=== PATIENT | male | born 1950 | race Hispanic/Latino ===

== ENCOUNTER 2016-04-19 11:07 | Outpatient (CLI) | payer MEDICARE ==
[2016-04-19] MEDS ORDERED: XYLOCAINE TOPICAL 2% ONE (11:51)
== END 2016-04-19 11:08 | disposition home or self-care (01) ==
LOC: WOUND 11:07
PROVIDERS: ATTEND Orthopaedic Surgery
DX: L89.214 Pressure ulcer of right hip, stage 4 (principal)

== ENCOUNTER 2016-05-03 11:16 | Outpatient (CLI) | payer MEDICARE ==
[2016-05-03] MEDS ORDERED: XYLOCAINE TOPICAL 2% ONE (11:22)
[2016-05-03] MEDS ORDERED: XYLOCAINE TOPICAL 2% TP ONE (13:26)
== END 2016-05-03 11:17 | disposition home or self-care (01) ==
LOC: WOUND 11:16
PROVIDERS: ATTEND Orthopaedic Surgery
DX: L89.214 Pressure ulcer of right hip, stage 4 (principal)

== ENCOUNTER 2016-06-07 10:29 | Outpatient (CLI) | payer MEDICARE ==
[2016-06-07] MEDS ORDERED: XYLOCAINE TOPICAL 2% ONE (11:07)
[2016-06-08] MEDS ORDERED: XYLOCAINE TOPICAL 2% TP ONE (08:09)
== END 2016-06-07 10:30 | disposition home or self-care (01) ==
LOC: WOUND 10:29
PROVIDERS: ATTEND Internal Medicine
DX: L89.214 Pressure ulcer of right hip, stage 4 (principal); M62.432 Contracture of muscle, left forearm; M62.3 Immobility syndrome (paraplegic); F84.8 Other pervasive developmental disorders

== ENCOUNTER 2016-06-21 10:39 | Outpatient (CLI) | payer MEDICARE ==
[2016-06-21] MEDS ORDERED: XYLOCAINE TOPICAL 4% TP ONE ×2 (11:13→11:37)
== END 2016-06-21 10:40 | disposition home or self-care (01) ==
LOC: WOUND 10:39
PROVIDERS: ATTEND Internal Medicine
DX: L89.214 Pressure ulcer of right hip, stage 4 (principal); M62.432 Contracture of muscle, left forearm; M62.3 Immobility syndrome (paraplegic); F84.8 Other pervasive developmental disorders

== ENCOUNTER 2016-07-19 08:12 | Outpatient (CLI) | payer MEDICARE ==
[2016-07-19] MEDS ORDERED: XYLOCAINE TOPICAL 2% ONE (08:22)
[2016-07-19] MEDS ORDERED: XYLOCAINE TOPICAL 2% TP ONE (15:01)
== END 2016-07-19 08:13 | disposition home or self-care (01) ==
LOC: WOUND 08:12
PROVIDERS: ATTEND Internal Medicine
DX: L89.224 Pressure ulcer of left hip, stage 4 (principal); M62.432 Contracture of muscle, left forearm; M62.3 Immobility syndrome (paraplegic); F84.8 Other pervasive developmental disorders

== ENCOUNTER 2016-08-02 10:27 | Outpatient (CLI) | payer MEDICARE, MEDICAID ==
[2016-08-02] MEDS ORDERED: XYLOCAINE TOPICAL 2% ONE (10:33)
== END 2016-08-02 10:28 | disposition home or self-care (01) ==
LOC: WOUND 10:27
PROVIDERS: ATTEND Surgery
DX: L89.214 Pressure ulcer of right hip, stage 4 (principal); R64 Cachexia; M62.3 Immobility syndrome (paraplegic); M62.432 Contracture of muscle, left forearm; F84.8 Other pervasive developmental disorders

== ENCOUNTER 2016-08-16 09:57 | Outpatient (CLI) | payer MEDICARE ==
[2016-08-16] MEDS ORDERED: XYLOCAINE TOPICAL 2% ONE (10:04)
[2016-08-16] MEDS ORDERED: XYLOCAINE TOPICAL 2% TP ONE (10:22)
== END 2016-08-16 09:58 | disposition home or self-care (01) ==
LOC: WOUND 09:57
PROVIDERS: ATTEND Internal Medicine
DX: L89.214 Pressure ulcer of right hip, stage 4 (principal); M62.432 Contracture of muscle, left forearm; M62.3 Immobility syndrome (paraplegic); F84.8 Other pervasive developmental disorders

== ENCOUNTER 2016-08-30 10:07 | Outpatient (CLI) | payer MEDICARE ==
[2016-08-30] MEDS ORDERED: XYLOCAINE TOPICAL 2% ONE (10:18)
[2016-08-30] MEDS ORDERED: XYLOCAINE TOPICAL 2% TP ONE (11:00)
== END 2016-08-30 10:08 | disposition home or self-care (01) ==
LOC: WOUND 10:07
PROVIDERS: ATTEND Surgery
DX: L89.214 Pressure ulcer of right hip, stage 4 (principal); M62.3 Immobility syndrome (paraplegic); M62.432 Contracture of muscle, left forearm; F84.8 Other pervasive developmental disorders
CPT/HCPCS: 99214; G0463

== ENCOUNTER 2016-09-13 10:54 | Outpatient (CLI) | payer MEDICARE | END 2016-09-13 10:55 | disposition home or self-care (01) | LOC: WOUND 10:54 | PROVIDERS: ATTEND Surgery | DX: L89.214 Pressure ulcer of right hip, stage 4 (principal); M62.432 Contracture of muscle, left forearm; M62.3 Immobility syndrome (paraplegic); R64 Cachexia; F84.8 Other pervasive developmental disorders ==

== ENCOUNTER 2016-09-27 10:34 | Outpatient (CLI) | payer MEDICARE ==
[2016-09-27] MEDS ORDERED: XYLOCAINE TOPICAL 2% ONE (11:05)
[2016-09-27] MEDS ORDERED: XYLOCAINE TOPICAL 2% TP ONE (11:16)
== END 2016-09-27 10:35 | disposition home or self-care (01) ==
LOC: WOUND 10:34
PROVIDERS: ATTEND Surgery
DX: L89.214 Pressure ulcer of right hip, stage 4 (principal); M62.3 Immobility syndrome (paraplegic); M62.432 Contracture of muscle, left forearm; F84.8 Other pervasive developmental disorders

== ENCOUNTER 2016-10-11 10:56 | Outpatient (CLI) | payer MEDICARE ==
[2016-10-11] MEDS ORDERED: XYLOCAINE TOPICAL 4% TP ONE ×2 (12:29→12:36)
== END 2016-10-11 10:57 | disposition home or self-care (01) ==
LOC: WOUND 10:56
PROVIDERS: ATTEND Surgery
DX: L89.214 Pressure ulcer of right hip, stage 4 (principal); M62.432 Contracture of muscle, left forearm; M62.3 Immobility syndrome (paraplegic); F84.8 Other pervasive developmental disorders

== ENCOUNTER 2016-10-25 10:18 | Outpatient (CLI) | payer MEDICARE ==
[2016-10-25] MEDS ORDERED: XYLOCAINE TOPICAL 4% TP ONE ×2 (10:41→10:46)
== END 2016-10-25 10:19 | disposition home or self-care (01) ==
LOC: WOUND 10:18
PROVIDERS: ATTEND Surgery
DX: L89.214 Pressure ulcer of right hip, stage 4 (principal); M62.3 Immobility syndrome (paraplegic); F84.8 Other pervasive developmental disorders
CPT/HCPCS: 99214; G0463

== ENCOUNTER 2016-11-08 11:22 | Outpatient (CLI) | payer MEDICARE ==
[2016-11-08] MEDS ORDERED: XYLOCAINE TOPICAL 4% TP ONE (11:39)
[2016-11-08] MEDS ORDERED: SILVER NITRATE TP ONE (11:56)
== END 2016-11-08 11:23 | disposition home or self-care (01) ==
LOC: WOUND 11:22
PROVIDERS: ATTEND Surgery
DX: L89.214 Pressure ulcer of right hip, stage 4 (principal); M62.3 Immobility syndrome (paraplegic); F84.8 Other pervasive developmental disorders; M62.432 Contracture of muscle, left forearm

== ENCOUNTER 2016-11-29 11:12 | Outpatient (CLI) | payer MEDICARE ==
[2016-11-29] MEDS ORDERED: XYLOCAINE TOPICAL 4% TP ONE ×2 (11:18→11:22)
== END 2016-11-29 11:13 | disposition home or self-care (01) ==
LOC: WOUND 11:12
PROVIDERS: ATTEND Surgery
DX: L89.214 Pressure ulcer of right hip, stage 4 (principal); F79 Unspecified intellectual disabilities

== ENCOUNTER 2016-12-13 10:49 | Outpatient (CLI) | payer MEDICARE ==
[2016-12-13] MEDS ORDERED: XYLOCAINE TOPICAL 4% TP ONE ×2 (10:57→10:58)
== END 2016-12-13 10:50 | disposition home or self-care (01) ==
LOC: WOUND 10:49
PROVIDERS: ATTEND Surgery
DX: L89.214 Pressure ulcer of right hip, stage 4 (principal); M62.3 Immobility syndrome (paraplegic); M62.432 Contracture of muscle, left forearm; F84.8 Other pervasive developmental disorders

== ENCOUNTER 2017-01-03 11:28 | Outpatient (CLI) | payer MEDICARE ==
[2017-01-03] MEDS ORDERED: XYLOCAINE TOPICAL 4% TP ONE ×2 (11:49→16:15)
== END 2017-01-03 11:29 | disposition home or self-care (01) ==
LOC: WOUND 11:28
PROVIDERS: ATTEND Surgery
DX: L89.214 Pressure ulcer of right hip, stage 4 (principal)

== ENCOUNTER 2017-01-17 11:07 | Outpatient (CLI) | payer MEDICARE ==
[2017-01-17] MEDS ORDERED: XYLOCAINE TOPICAL 4% TP ONE ×2 (11:31→11:39)
== END 2017-01-17 11:08 | disposition home or self-care (01) ==
LOC: WOUND 11:07
PROVIDERS: ATTEND Surgery
DX: L89.214 Pressure ulcer of right hip, stage 4 (principal)

== ENCOUNTER 2017-01-31 11:11 | Outpatient (CLI) | payer MEDICARE ==
[2017-01-31] MEDS ORDERED: XYLOCAINE TOPICAL 2% ONE (11:43)
[2017-01-31] MEDS ORDERED: XYLOCAINE TOPICAL 2% TP ONE (11:47)
== END 2017-01-31 11:12 | disposition home or self-care (01) ==
LOC: WOUND 11:11
PROVIDERS: ATTEND Surgery
DX: L89.214 Pressure ulcer of right hip, stage 4 (principal); M62.3 Immobility syndrome (paraplegic); M62.432 Contracture of muscle, left forearm; F84.8 Other pervasive developmental disorders

== ENCOUNTER 2017-02-14 11:21 | Outpatient (CLI) | payer MEDICARE ==
[2017-02-14] MEDS ORDERED: XYLOCAINE TOPICAL 4% TP ONE ×2 (12:00→12:11)
== END 2017-02-14 11:22 | disposition home or self-care (01) ==
LOC: WOUND 11:21
PROVIDERS: ATTEND Surgery
DX: L89.214 Pressure ulcer of right hip, stage 4 (principal); F84.8 Other pervasive developmental disorders; M62.432 Contracture of muscle, left forearm; M62.3 Immobility syndrome (paraplegic); R64 Cachexia

== ENCOUNTER 2017-02-28 08:45 | Outpatient (CLI) | payer MEDICARE ==
[2017-02-28] MEDS ORDERED: XYLOCAINE TOPICAL 4% TP ONE (09:15)
== END 2017-02-28 08:46 | disposition home or self-care (01) ==
LOC: WOUND 08:45
PROVIDERS: ATTEND Surgery
DX: L89.214 Pressure ulcer of right hip, stage 4 (principal); M62.3 Immobility syndrome (paraplegic); M62.432 Contracture of muscle, left forearm; F84.8 Other pervasive developmental disorders

== ENCOUNTER 2017-02-28 12:16 | Inpatient (IN) | payer MEDICARE ==
[2017-02-28] MEDS ORDERED: NACL 0.9% 500 ML 500 ML IV ONE (13:34)
[2017-02-28] MEDS ORDERED: NACL 0.9% 1000 ML 1,000 ML IV ONE (13:45)
--- NOTE | 2017-02-28 14:07 | XRay Report ---
AP CHEST: HISTORY: Sepsis Slightly limited exam with the patient's left upper extremity overlying the left lung and superior mediastinum. AP view of the chest demonstrates a normal mediastinal and cardiac contour with clear lungs and normal bony and soft tissue structures. IMPRESSION: Unremarkable AP chest.
[2017-02-28 14:39] LABS: Basophils % (Auto) 0.4 % (0.0-1.8); Eosinophils % (Auto) 2.2 % (0.0-4.3); Hematocrit 27.6 % (35.5-45.6); Hemoglobin 9.4 gm/dl (11.8-15.2); Mean Corpuscular HGB Conc 34 % (32-34); Mean Corpuscular Hemoglobin 31 pg (28-32); Mean Corpuscular Volume 90 fl (84-94); Platelet Count 273 K/mm3 (140-440); Red Blood Count 3.06 M/mm3 (3.65-5.03); Red Cell Distribution Width 14.2 % (13.2-15.2); White Blood Count 7.4 K/mm3 (4.5-11.0)
[2017-02-28 14:44] LABS: INR 1.2 (0.87-1.13)
[2017-02-28 14:56] LABS: Alanine Aminotransferase 12 units/L (7-56); Albumin 2.9 g/dL (3.9-5); Albumin/Globulin Ratio 0.9 %; Alkaline Phosphatase 53 units/L (35-129); Anion Gap 15 mmol/L; BUN/Creatinine Ratio 67; Blood Urea Nitrogen 20 mg/dL (9-20); Carbon Dioxide 26 mmol/L (22-30); Chloride 103.1 mmol/L (98-107); Glucose 111 mg/dL (75-100); Potassium 3.8 mmol/L (3.6-5.0); Sodium 140 mmol/L (137-145); Total Protein 6.1 g/dL (6.3-8.2)
[2017-02-28] MEDS ORDERED: VANCOMYCIN/NS 1 GM/250 ML 1 GM/250 ML BAG IV ONE (15:30)
[2017-02-28 16:12] LABS: Bilirubin,Urine NEG (Negative); Blood,Urine NEG (Negative); Ketones,Urine TR mg/dL (Negative); Leukocyte Esterase,Urine NEG (Negative); Nitrite,Urine NEG (Negative); Protein,Urine <15 mg/dL mg/dL (Negative)
--- NOTE | 2017-02-28 20:30 | Emergency Department Report ---
ED Extremity Problem HPI - General Chief complaint: Extremity Problem,Nontraumatic Stated complaint: RIGHT LEG SWOLLEN/LT FOOT DISCOLORED Time Seen by Provider: 02/28/17 14:41 Source: family (buffer copper from [facility]) Mode of arrival: Wheelchair Limitations: Language Barrier, Altered Mental Status, Physical Limitation - History of Present Illness Initial comments: 67-year-old male with a past medical history of previous CVA with left-sided contraction, DVT, PE, seizures, cerebral palsy and MR presents to the Hospital complains of right leg warmth and swelling. Patient was seen in our wound clinic for chronic right hip pressure ulcer. Dr. Cano wound care physician was concerned about patient's leg and sent for evaluation. The patient resides in a [facility] Mastic Worker at the bedside. She states that he injured his left foot/toes recently and his superficial has since healed but persistent discoloration to some of his toes. No reports of fever. Patient also presents with low blood pressure and an buffer copper thinks typically on the low side but also thinks he may be dehydrated due to his dark urine discoloration. Severity scale (0 -10): 0 - Related Data Home Medications Medication Instructions Recorded Confirmed Last Taken Divalproex ER [Depakote ER] 500 mg PO HS 04/11/13 09/27/15 09/26/15 500mg Docusate Sodium 100 mg PO BID 02/12/15 09/27/15 09/26/15 100mg Ensure 1 dose PO BID 02/12/15 09/27/15 09/26/15 1 Multivitamins 1 tab PO DAILY 02/12/15 09/27/15 09/26/15 1 Ranitidine HCl 150 mg PO DAILY 02/12/15 09/27/15 09/26/15 150mg RisperiDONE 1 mg PO BID 02/12/15 09/27/15 09/26/15 1 mg Xarelto 20 mg PO DAILY 02/12/15 09/27/15 09/26/15 20mg Ascorbic Acid [Vitamin C] 500 mg PO DAILY 09/27/15 09/27/15 09/26/15 500mg Allergies Allergy/AdvReac Type Severity Reaction Status Date / Time No Known Allergies Allergy Verified 02/28/17 12:30 ED Review of Systems ROS: Stated complaint: RIGHT LEG SWOLLEN/LT FOOT DISCOLORED Other details as noted in HPI Comment: Unobtainable due to pts medical conditions ED Past Medical Hx - Past Medical History Previous Medical History?: Yes Hx CVA: Yes (possibly history of strokes per caregiver) Hx Diabetes: No Hx Deep Vein Thrombosis: Yes Hx Pulmonary Embolism: Yes Hx Seizures: Yes Additional medical history: Cerebral palsy. mentally handicapped - Social History Smoking Status: Never Smoker Substance Use Type: None - Medications Home Medications: Home Medications Medication Instructions Recorded Confirmed Last Taken Type Divalproex ER [Depakote ER] 500 mg PO HS 04/11/13 09/27/15 09/26/15 History 500mg Docusate Sodium 100 mg PO BID 02/12/15 09/27/15 09/26/15 History 100mg Ensure 1 dose PO BID 02/12/15 09/27/15 09/26/15 History 1 Multivitamins 1 tab PO DAILY 02/12/15 09/27/15 09/26/15 History 1 Ranitidine HCl 150 mg PO DAILY 02/12/15 09/27/15 09/26/15 History 150mg RisperiDONE 1 mg PO BID 02/12/15 09/27/15 09/26/15 History 1 mg Xarelto 20 mg PO DAILY 02/12/15 09/27/15 09/26/15 History 20mg Ascorbic Acid [Vitamin C] 500 mg PO DAILY 09/27/15 09/27/15 09/26/15 History 500mg ED Physical Exam - General Limitations: Language Barrier, Altered Mental Status, Physical Limitation - Other Other exam information: General: No limitations, patient is alert in no acute distress Head exam: Atraumatic, normocephalic Eyes exam: Normal appearance ENT: Moist mucous membrane, normal oropharynx Neck exam: Normal inspection Respiratory exam: Clear to auscultation bilateral, no wheezes, rales, crackles Cardiovascular: Normal rate and rhythm, normal heart sounds Abdomen: Soft, nondistended, and nontender, with normal bowel sounds, no rebound, or guarding Extremity: Diffuse right lower leg warmth, erythema, and swelling. Bluish discoloration to left foot at the second through fourth toes. Full range of motion. 2+ EB pupils are equal bilaterally. Back: Normal Inspection, full range of motion, no tenderness Neurologic: Alert, cranial nerves intact, contracted left arm with limited movement of her left upper and lower extremity Psychiatric: normal affect, normal mood Skin: Right hip pressure ulcer without signs of infection ED Course Vital Signs 02/28/17 02/28/17 02/28/17 12:32 13:00 13:16 Temperature 98.6 F Pulse Rate 82 Respiratory Rate Blood Pressure 84/63 Blood Pressure [Right] O2 Sat by Pulse 97 97 98 Oximetry 02/28/17 02/28/17 02/28/17 13:30 13:33 13:34 Temperature 99.5 F Pulse Rate 82 81 Respiratory 21 19 19 Rate Blood Pressure 99/49 Blood Pressure 99/49 [Right] O2 Sat by Pulse 97 97 97 Oximetry 02/28/17 02/28/17 02/28/17 13:46 14:00 14:16 Temperature Pulse Rate 78 79 88 Respiratory 19 19 16 Rate Blood Pressure 99/49 99/49 236/167 Blood Pressure [Right] O2 Sat by Pulse 97 97 98 Oximetry 02/28/17 02/28/17 02/28/17 14:30 14:45 14:46 Temperature Pulse Rate 76 87 90 Respiratory 17 17 20 Rate Blood Pressure 236/167 90/39 Blood Pressure 90/39 [Right] O2 Sat by Pulse 99 99 Oximetry 02/28/17 02/28/17 02/28/17 15:00 15:16 15:30 Temperature Pulse Rate 91 H 89 93 H Respiratory 21 18 13 Rate Blood Pressure 90/39 90/39 90/39 Blood Pressure [Right] O2 Sat by Pulse 99 97 98 Oximetry 02/28/17 02/28/17 02/28/17 15:46 16:00 16:16 Temperature Pulse Rate 81 83 92 H Respiratory 14 20 15 Rate Blood Pressure 90/39 90/39 99/65 Blood Pressure [Right] O2 Sat by Pulse 98 99 95 Oximetry 02/28/17 02/28/17 02/28/17 16:30 16:46 17:00 Temperature Pulse Rate 75 84 79 Respiratory 20 22 17 Rate Blood Pressure 99/65 99/65 106/56 Blood Pressure [Right] O2 Sat by Pulse 100 98 99 Oximetry 02/28/17 02/28/17 02/28/17 17:16 17:30 17:46 Temperature Pulse Rate 75 85 85 Respiratory 15 15 19 Rate Blood Pressure 106/56 106/56 115/64 Blood Pressure [Right] O2 Sat by Pulse 99 98 98 Oximetry 02/28/17 02/28/17 18:00 18:16 Temperature Pulse Rate 82 81 Respiratory 17 19 Rate Blood Pressure 109/63 109/63 Blood Pressure [Right] O2 Sat by Pulse 96 99 Oximetry - Reevaluation(s) Reevaluation #1: 02/28/17 BP improved as IV bolus. Patient received 1 dose of vancomycin IV in the ED - EJ/Peripheral Line Neck R Time Out Performed: Yes Indications: nurses unable to establis Skin Cleansed in Sterile Fashion: Yes Size: 20 Dressing Placed: Tegaderm Patient Tolerated Procedure: well, no complications ED Medical Decision Making - Lab Data Result diagrams: 02/28/17 13:34 02/28/17 13:34 - Radiology Data Radiology results: report reviewed Right leg Doppler exam negative for DVT - Medical Decision Making Plans admit patient to the hospital overnight to continue IV antibiotics and to monitor for BP stabilization. - Differential Diagnosis DVT, cellulitis, fracture, sepsis Critical Care Time: No Critical care attestation.: If time is entered above; I have spent that time in minutes in the direct care of this critically ill patient, excluding procedure time. ED Disposition Clinical Impression: Cellulitis of right leg, Mental retardation, Anemia Disposition: DC09 OP ADMIT IP TO THIS HOSP Is pt being admited?: Yes Condition: Stable Time of Disposition: 20:38 (Dr Gaona/hosp)
--- NOTE | 2017-02-28 21:33 | XRay Report ---
FINAL REPORT PROCEDURE: XR FOOT 3+V LT TECHNIQUE: LEFT foot radiographs, AP, lateral, and oblique views. CPT 73228 HISTORY: toes discoloration after injury COMPARISON: No prior studies are available for comparison. FINDINGS: Fracture (s) and/or Dislocation(s): Acute fractures are noted involving the proximal diaphyses of 3rd, 4th and 5th proximal phalanges and distal metaphyses of 4th and 5th metatarsals. Alignment: There is mild degree displacement of the phalangeal fragments. Joint alignment is within normal limits. Joint space(s): Narrowing of intertarsal and 1st metatarsophalangeal joint spaces is noted. Osteophyte formation is noted involving 1st metatarsophalangeal joint.. Soft tissues: Normal . Bone mineralization: Normal . Foreign bodies: None . Calcaneal spurring: None . IMPRESSION: Acute fractures involving 3rd to 5th proximal phalanges and 4th and 5th metatarsals. Osteoarthritis..
[2017-02-28] MEDS ORDERED: ZOFRAN IV PRN (22:45)
[2017-02-28] MEDS ORDERED: TYLENOL PO PRN (22:45)
--- NOTE | 2017-02-28 22:48 | History and Physical Report ---
History of Present Illness Date of examination: 02/28/17 History of present illness: 67-year-old man with history of DVT, PE, seizure, CVA From the wound care center for evaluation of right leg swelling and redness. He is unable to give a history, review of system unobtainable PAST MEDICAL HISTORY:DVT, PE, seizure, CVA PAST SURGICAL HISTORY: Unknown FAMILY HISTORY: Unknown SOCIAL HISTORY:Unknown Medications and Allergies Allergies Allergy/AdvReac Type Severity Reaction Status Date / Time No Known Allergies Allergy Verified 02/28/17 12:30 Home Medications Medication Instructions Recorded Confirmed Last Taken Type Divalproex ER [Depakote ER] 500 mg PO HS 04/11/13 03/01/17 02/27/17 20:00 History Docusate Sodium 100 mg PO BID 02/12/15 03/01/17 02/28/17 08:00 History Ensure 1 dose PO BID 02/12/15 03/01/17 02/28/17 10:00 History Multivitamins 1 tab PO DAILY 02/12/15 03/01/17 02/28/17 08:00 History Ranitidine HCl 150 mg PO DAILY 02/12/15 03/01/17 02/27/17 19:00 History RisperiDONE 1 mg PO DAILY 02/12/15 03/01/17 02/27/17 20:00 History Xarelto 20 mg PO DAILY 02/12/15 03/01/17 09/26/15 History 20mg Ascorbic Acid [Vitamin C] 500 mg PO DAILY 09/27/15 03/01/17 02/28/17 08:00 History Collagenase [Santyl] 1 applicatio TP QDAY 03/01/17 03/01/17 Unknown History Multivitamin/Iron/Folic Acid 1 each PO DAILY 03/01/17 03/01/17 02/28/17 08:00 History [Centrum Adults Tablet] Santyl 250 gm TP DAILY 03/01/17 03/01/17 Unknown History Exam - Physical Exam Narrative exam: Gen. appearance: Patient lying in bed in no acute distress HEENT: Normocephalic/atraumatic, pupils equal round reactive to light, extra alkaline movement intact, no scleral icterus, no JVD or thyromegaly or nodule, neck is supple, mucous membrane moist, no erythema or exudate Heart: S1-S2, regular rate and rhythm Lungs: Clear to auscultation bilateral breathing comfortable Abdomen: Positive bowel sounds, nontender, nondistended, no organomegaly Extremities:right leg swelling and redness, +warmth extremities contracted, No cyanosis, clubbing Neuro:: Oriented 3 , cranial nerves II-12 intact, speech, motor intact Skin: Hip ulcer, No rash, nodules, warm dry - Constitutional Vitals: Temp Pulse Resp BP Pulse Ox 99.5 F 61 15 100/54 94 02/28/17 13:33 02/28/17 21:46 02/28/17 21:46 02/28/17 21:46 02/28/17 21:46 Results - Labs CBC & Chem 7: 03/01/17 04:17 03/01/17 04:17 Labs: Abnormal lab results 02/28/17 02/28/17 02/28/17 Range/Units 13:34 13:34 13:34 RBC 3.06 L (3.65-5.03) M/mm3 Hgb 9.4 L (11.8-15.2) gm/dl Hct 27.6 L (35.5-45.6) % [place] % (Auto) 10.8 H (0.0-7.3) % Lymph # 1.1 L (1.2-5.4) K/mm3 Seg Neutrophils % 71.8 H (40.0-70.0) % PT 15.8 H (12.2-14.9) Sec. INR 1.20 H (0.87-1.13) Creatinine 0.3 L (0.8-1.5) mg/dL Glucose 111 H (75-100) mg/dL Calcium 8.0 L (8.4-10.2) mg/dL Total Protein 6.1 L (6.3-8.2) g/dL Albumin 2.9 L (3.9-5) g/dL Assessment and Plan xray foot reviewed doppler pending Assessment Right leg cellulitis Fracture of the toes Seizure DVT/PE Hip ulcer Plan Admit to medicine Start IV Rocephin, follow cultures Consult ortho, wound care Continue outpatient medications
[2017-03-01] MEDS ORDERED: NACL 0.9% 500 ML 500 ML IV ONE ×2 (01:57→14:49)
[2017-03-01 05:19] LABS: Eosinophils % (Auto) 3.4 % (0.0-4.3); Hematocrit 26.2 % (35.5-45.6); Hemoglobin 8.6 gm/dl (11.8-15.2); Mean Corpuscular HGB Conc 33 % (32-34); Mean Corpuscular Hemoglobin 30 pg (28-32); Mean Corpuscular Volume 91 fl (84-94); Platelet Count 242 K/mm3 (140-440); Red Blood Count 2.89 M/mm3 (3.65-5.03); White Blood Count 5.7 K/mm3 (4.5-11.0)
[2017-03-01 06:26] LABS: Anion Gap 16 mmol/L; BUN/Creatinine Ratio 70; Blood Urea Nitrogen 14 mg/dL (9-20); Calcium 7.9 mg/dL (8.4-10.2); Carbon Dioxide 24 mmol/L (22-30); Chloride 109.4 mmol/L (98-107); Glucose 86 mg/dL (75-100); Potassium 4.2 mmol/L (3.6-5.0); Sodium 145 mmol/L (137-145)
[2017-03-01] MEDS ORDERED: ENSURE PO SCH (10:00)
[2017-03-01] MEDS ORDERED: LOVENOX SUB-Q SCH (10:00)
[2017-03-01] MEDS ORDERED: ROCEPHIN/NS 1 GM/50 ML 1 GM/50 ML BAG IV SCH (10:00)
[2017-03-01] MEDS ORDERED: cefTRIAXone 1 GM in NACL 0.9% 20 ML IV SCH (10:00)
[2017-03-01] MEDS: PEPCID PO SCH (10:34)
[2017-03-01] MEDS: THERAGRAN Tab PO SCH (10:34)
[2017-03-01] MEDS: XARELTO PO SCH (10:34)
[2017-03-01] MEDS: VITAMIN C PO SCH (10:35)
[2017-03-01] MEDS: RisperDAL PO SCH (10:35)
[2017-03-01] MEDS: COLACE PO SCH (10:35)
[2017-03-01] MEDS ORDERED: VANCOMYCIN/NS 1 GM/250 ML 1 GM/250 ML BAG IV SCH (11:00)
[2017-03-01] MEDS ORDERED: VANCOMYCIN PHARMACY TO DOSE IV SCH (11:00)
--- NOTE | 2017-03-01 11:03 | Progress Note ---
Assessment and Plan Assessment and plan: 67-year-old male with past medical history significant for mental retardation, seizure, decubitus ulcer admitted from wound care clinic for cellulitis Cellulitis of the right lower extremity - Patient is on IV vancomycin and Zosyn - We will follow culture results Seizure disorder - Continue Depakote Functional quadriplegia - Supportive care History of PE/DVT - on Xarelto Anemia - Continue to monitor H&H DVT prophylaxis - Continue xarelto Disposition - Continue inpatient care History Interval history: Patient was seen and evaluated this morning, patient's noncommunicative. No family member was in the room. Hospitalist Physical - Physical exam Narrative exam: Non communicative The patient appeared well nourished and normally developed. Vital signs as documented. Head exam is unremarkable. No scleral icterus . Neck is without jugular venous distension, thyromegaly, or carotid bruits. Lungs are clear to auscultation. Cardiac exam reveals regular rate and Rhythm. First and second heart sounds normal. No murmurs, rubs or gallops. Abdominal exam reveals normal bowel sounds, no masses, no organomegaly and no aortic enlargement. Extremities contracted. Swelling and erythema of the right leg. Skin sacral decubitus ulcer, clean dressing on it. BINDERY LIBRARY TECHNICAL ASSISTANT: Alert and oriented 3. No focal weakness. - Constitutional Vitals: Temp Pulse Resp BP Pulse Ox 100.0 F H 73 20 102/51 98 03/01/17 07:33 03/01/17 07:33 03/01/17 08:01 03/01/17 07:33 03/01/17 10:00 Results - Labs CBC & Chem 7: 03/01/17 04:17 03/01/17 04:17 Labs: Laboratory Last Values WBC 5.7 K/mm3 (4.5-11.0) 03/01/17 04:17 RBC 2.89 M/mm3 (3.65-5.03) L 03/01/17 04:17 Hgb 8.6 gm/dl (11.8-15.2) L 03/01/17 04:17 Hct 26.2 % (35.5-45.6) L 03/01/17 04:17 MCV 91 fl (84-94) 03/01/17 04:17 MCH 30 pg (28-32) 03/01/17 04:17 MCHC 33 % (32-34) 03/01/17 04:17 RDW 14.0 % (13.2-15.2) 03/01/17 04:17 Plt Count 242 K/mm3 (140-440) 03/01/17 04:17 Lymph % (Auto) 28.3 % (13.4-35.0) 03/01/17 04:17 [place] % (Auto) 13.2 % (0.0-7.3) H 03/01/17 04:17 Eos % (Auto) 3.4 % (0.0-4.3) 03/01/17 04:17 Baso % (Auto) 1.0 % (0.0-1.8) 03/01/17 04:17 Lymph # 1.6 K/mm3 (1.2-5.4) 03/01/17 04:17 [place] # 0.8 K/mm3 (0.0-0.8) 03/01/17 04:17 Eos # 0.2 K/mm3 (0.0-0.4) 03/01/17 04:17 Baso # 0.1 K/mm3 (0.0-0.1) 03/01/17 04:17 Seg Neutrophils % 54.1 % (40.0-70.0) 03/01/17 04:17 Seg Neutrophils # 3.1 K/mm3 (1.8-7.7) 03/01/17 04:17 PT 15.8 Sec. (12.2-14.9) H 02/28/17 13:34 INR 1.20 (0.87-1.13) H 02/28/17 13:34 VBG pH 7.387 (7.320-7.420) 02/28/17 14:15 Sodium 145 mmol/L (137-145) 03/01/17 04:17 Potassium 4.2 mmol/L (3.6-5.0) 03/01/17 04:17 Chloride 109.4 mmol/L (98-107) H 03/01/17 04:17 Carbon Dioxide 24 mmol/L (22-30) 03/01/17 04:17 Anion Gap 16 mmol/L 03/01/17 04:17 BUN 14 mg/dL (9-20) 03/01/17 04:17 Creatinine 0.2 mg/dL (0.8-1.5) L 03/01/17 04:17 Estimated GFR > 60 ml/min 03/01/17 04:17 BUN/Creatinine Ratio 70 % 03/01/17 04:17 Glucose 86 mg/dL (75-100) 03/01/17 04:17 Lactic Acid 1.80 mmol/L (0.7-2.0) 02/28/17 16:22 Calcium 7.9 mg/dL (8.4-10.2) L 03/01/17 04:17 Total Bilirubin 0.30 mg/dL (0.1-1.2) 02/28/17 13:34 AST 18 units/L (5-40) 02/28/17 13:34 ALT 12 units/L (7-56) 02/28/17 13:34 Alkaline Phosphatase 53 units/L (35-129) 02/28/17 13:34 Total Protein 6.1 g/dL (6.3-8.2) L 02/28/17 13:34 Albumin 2.9 g/dL (3.9-5) L 02/28/17 13:34 Albumin/Globulin Ratio 0.9 % 02/28/17 13:34 Urine Color Yellow (Yellow) 02/28/17 15:40 Urine Turbidity Clear (Clear) 02/28/17 15:40 Urine pH 5.0 (5.0-7.0) 02/28/17 15:40 Ur Specific [place] 1.023 (1.003-1.030) 02/28/17 15:40 Urine Protein <15 mg/dl mg/dL (Negative) 02/28/17 15:40 Urine Glucose (UA) Neg mg/dL (Negative) 02/28/17 15:40 Urine Ketones Tr mg/dL (Negative) 02/28/17 15:40 Urine Blood Neg (Negative) 02/28/17 15:40 Urine Nitrite Neg (Negative) 02/28/17 15:40 Urine Bilirubin Neg (Negative) 02/28/17 15:40 Urine Urobilinogen 2.0 mg/dL (<2.0) 02/28/17 15:40 Ur Leukocyte Esterase Neg (Negative) 02/28/17 15:40 Urine WBC (Auto) 2.0 /HPF (0.0-6.0) 02/28/17 15:40 Urine RBC (Auto) 4.0 /HPF (0.0-6.0) 02/28/17 15:40
[2017-03-01] MEDS ORDERED: VANCOMYCIN 1,250 MG in NACL 0.9% 250ML 250 ML IV ONE (11:30)
[2017-03-01] MEDS: ZOSYN/NS 4.5GM/100ML 4.5 GM/100 ML VIAL IV SCH ×2 (13:35→17:37)
[2017-03-02] MEDS: COLACE PO SCH ×2 (00:02→10:42)
[2017-03-02] MEDS: RisperDAL PO SCH ×2 (00:02→10:42)
[2017-03-02] MEDS: ZOSYN/NS 4.5GM/100ML 4.5 GM/100 ML VIAL IV SCH ×4 (00:05→17:27)
[2017-03-02] MEDS: VANCOMYCIN/NS 1 GM/250 ML 1 GM/250 ML BAG IV SCH ×3 (00:06→22:10)
[2017-03-02] MEDS: THERAGRAN Tab PO SCH (10:42)
[2017-03-02] MEDS: VITAMIN C PO SCH (10:42)
[2017-03-02] MEDS: PEPCID PO SCH (10:42)
[2017-03-02] MEDS: XARELTO PO SCH (10:42)
--- NOTE | 2017-03-02 13:09 | Progress Note ---
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 No family member was in the room. Hospitalist Physical - Physical exam Narrative exam: Non communicative The patient appeared well nourished and normally developed. Vital signs as documented. Head exam is unremarkable. No scleral icterus . Neck is without jugular venous distension, thyromegaly, or carotid bruits. Lungs are clear to auscultation. Cardiac exam reveals regular rate and Rhythm. First and second heart sounds normal. No murmurs, rubs or gallops. Abdominal exam reveals normal bowel sounds, no masses, no organomegaly and no aortic enlargement. Extremities contracted. Swelling and erythema of the right leg. Skin sacral decubitus ulcer, clean dressing on it. SENIOR WINDOWS ENGINEER: Alert and oriented 3. No focal weakness. - Constitutional Vitals: Temp Pulse Resp BP Pulse Ox 99.3 F 76 18 109/71 94 03/02/17 07:59 03/02/17 07:59 03/02/17 07:59 03/02/17 07:59 03/02/17 10:00 Results - Labs CBC & Chem 7: 03/01/17 04:17 03/01/17 04:17 Labs: Laboratory Last Values WBC 5.7 K/mm3 (4.5-11.0) 03/01/17 04:17 RBC 2.89 M/mm3 (3.65-5.03) L 03/01/17 04:17 Hgb 8.6 gm/dl (11.8-15.2) L 03/01/17 04:17 Hct 26.2 % (35.5-45.6) L 03/01/17 04:17 MCV 91 fl (84-94) 03/01/17 04:17 MCH 30 pg (28-32) 03/01/17 04:17 MCHC 33 % (32-34) 03/01/17 04:17 RDW 14.0 % (13.2-15.2) 03/01/17 04:17 Plt Count 242 K/mm3 (140-440) 03/01/17 04:17 Lymph % (Auto) 28.3 % (13.4-35.0) 03/01/17 04:17 [place] % (Auto) 13.2 % (0.0-7.3) H 03/01/17 04:17 Eos % (Auto) 3.4 % (0.0-4.3) 03/01/17 04:17 Baso % (Auto) 1.0 % (0.0-1.8) 03/01/17 04:17 Lymph # 1.6 K/mm3 (1.2-5.4) 03/01/17 04:17 [place] # 0.8 K/mm3 (0.0-0.8) 03/01/17 04:17 Eos # 0.2 K/mm3 (0.0-0.4) 03/01/17 04:17 Baso # 0.1 K/mm3 (0.0-0.1) 03/01/17 04:17 Seg Neutrophils % 54.1 % (40.0-70.0) 03/01/17 04:17 Seg Neutrophils # 3.1 K/mm3 (1.8-7.7) 03/01/17 04:17 PT 15.8 Sec. (12.2-14.9) H 02/28/17 13:34 INR 1.20 (0.87-1.13) H 02/28/17 13:34 VBG pH 7.387 (7.320-7.420) 02/28/17 14:15 Sodium 145 mmol/L (137-145) 03/01/17 04:17 Potassium 4.2 mmol/L (3.6-5.0) 03/01/17 04:17 Chloride 109.4 mmol/L (98-107) H 03/01/17 04:17 Carbon Dioxide 24 mmol/L (22-30) 03/01/17 04:17 Anion Gap 16 mmol/L 03/01/17 04:17 BUN 14 mg/dL (9-20) 03/01/17 04:17 Creatinine 0.2 mg/dL (0.8-1.5) L 03/01/17 04:17 Estimated GFR > 60 ml/min 03/01/17 04:17 BUN/Creatinine Ratio 70 % 03/01/17 04:17 Glucose 86 mg/dL (75-100) 03/01/17 04:17 Lactic Acid 1.80 mmol/L (0.7-2.0) 02/28/17 16:22 Calcium 7.9 mg/dL (8.4-10.2) L 03/01/17 04:17 Total Bilirubin 0.30 mg/dL (0.1-1.2) 02/28/17 13:34 AST 18 units/L (5-40) 02/28/17 13:34 ALT 12 units/L (7-56) 02/28/17 13:34 Alkaline Phosphatase 53 units/L (35-129) 02/28/17 13:34 Total Protein 6.1 g/dL (6.3-8.2) L 02/28/17 13:34 Albumin 2.9 g/dL (3.9-5) L 02/28/17 13:34 Albumin/Globulin Ratio 0.9 % 02/28/17 13:34 Urine Color Yellow (Yellow) 02/28/17 15:40 Urine Turbidity Clear (Clear) 02/28/17 15:40 Urine pH 5.0 (5.0-7.0) 02/28/17 15:40 Ur Specific [place] 1.023 (1.003-1.030) 02/28/17 15:40 Urine Protein <15 mg/dl mg/dL (Negative) 02/28/17 15:40 Urine Glucose (UA) Neg mg/dL (Negative) 02/28/17 15:40 Urine Ketones Tr mg/dL (Negative) 02/28/17 15:40 Urine Blood Neg (Negative) 02/28/17 15:40 Urine Nitrite Neg (Negative) 02/28/17 15:40 Urine Bilirubin Neg (Negative) 02/28/17 15:40 Urine Urobilinogen 2.0 mg/dL (<2.0) 02/28/17 15:40 Ur Leukocyte Esterase Neg (Negative) 02/28/17 15:40 Urine WBC (Auto) 2.0 /HPF (0.0-6.0) 02/28/17 15:40 Urine RBC (Auto) 4.0 /HPF (0.0-6.0) 02/28/17 15:40
[2017-03-02] MEDS ORDERED: NACL 0.9% 500 ML 500 ML IV ONE (13:44)
[2017-03-03] MEDS: RisperDAL PO SCH ×3 (00:16→21:13)
[2017-03-03] MEDS: COLACE PO SCH ×3 (00:17→21:13)
[2017-03-03] MEDS: ZOSYN/NS 4.5GM/100ML 4.5 GM/100 ML VIAL IV SCH ×4 (00:21→18:50)
[2017-03-03 04:55] LABS: Basophils % (Auto) 0.8 % (0.0-1.8); Eosinophils % (Auto) 3.9 % (0.0-4.3); Hematocrit 27.2 % (35.5-45.6); Hemoglobin 9.3 gm/dl (11.8-15.2); Mean Corpuscular HGB Conc 34 % (32-34); Mean Corpuscular Hemoglobin 31 pg (28-32); Mean Corpuscular Volume 90 fl (84-94); Platelet Count 274 K/mm3 (140-440); Red Blood Count 3.01 M/mm3 (3.65-5.03); Red Cell Distribution Width 13.6 % (13.2-15.2); White Blood Count 5.2 K/mm3 (4.5-11.0)
[2017-03-03 05:05] LABS: Anion Gap 12 mmol/L; BUN/Creatinine Ratio 40; Blood Urea Nitrogen 8 mg/dL (9-20); Calcium 7.9 mg/dL (8.4-10.2); Carbon Dioxide 24 mmol/L (22-30); Chloride 107.5 mmol/L (98-107); Glucose 89 mg/dL (75-100); Potassium 3.7 mmol/L (3.6-5.0); Sodium 140 mmol/L (137-145)
[2017-03-03] MEDS: PEPCID PO SCH (10:55)
[2017-03-03] MEDS: XARELTO PO SCH (10:55)
[2017-03-03] MEDS: THERAGRAN Tab PO SCH (10:56)
[2017-03-03] MEDS: VITAMIN C PO SCH (10:56)
[2017-03-03] MEDS: VANCOMYCIN/NS 1 GM/250 ML 1 GM/250 ML BAG IV SCH ×2 (11:03→21:39)
--- NOTE | 2017-03-03 13:11 | Progress Note ---
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 No family member was in the room. Hospitalist Physical - Physical exam Narrative exam: Non communicative The patient appeared well nourished and normally developed. Vital signs as documented. Head exam is unremarkable. No scleral icterus . Neck is without jugular venous distension, thyromegaly, or carotid bruits. Lungs are clear to auscultation. Cardiac exam reveals regular rate and Rhythm. First and second heart sounds normal. No murmurs, rubs or gallops. Abdominal exam reveals normal bowel sounds, no masses, no organomegaly and no aortic enlargement. Extremities contracted. Swelling and erythema of the right leg. Skin sacral decubitus ulcer, clean dressing on it. STORAGE GARAGE ATTENDANT: Alert and oriented 3. No focal weakness. - Constitutional Vitals: Temp Pulse Resp BP Pulse Ox 99.1 F 78 20 107/78 93 03/03/17 07:26 03/03/17 07:26 03/03/17 07:26 03/03/17 07:26 03/03/17 07:26 Results - Labs CBC & Chem 7: 03/03/17 04:09 03/03/17 04:09 Labs: Laboratory Last Values WBC 5.2 K/mm3 (4.5-11.0) 03/03/17 04:09 RBC 3.01 M/mm3 (3.65-5.03) L 03/03/17 04:09 Hgb 9.3 gm/dl (11.8-15.2) L 03/03/17 04:09 Hct 27.2 % (35.5-45.6) L 03/03/17 04:09 MCV 90 fl (84-94) 03/03/17 04:09 MCH 31 pg (28-32) 03/03/17 04:09 MCHC 34 % (32-34) 03/03/17 04:09 RDW 13.6 % (13.2-15.2) 03/03/17 04:09 Plt Count 274 K/mm3 (140-440) 03/03/17 04:09 Lymph % (Auto) 18.7 % (13.4-35.0) 03/03/17 04:09 [place] % (Auto) 10.6 % (0.0-7.3) H 03/03/17 04:09 Eos % (Auto) 3.9 % (0.0-4.3) 03/03/17 04:09 Baso % (Auto) 0.8 % (0.0-1.8) 03/03/17 04:09 Lymph # 1.0 K/mm3 (1.2-5.4) L 03/03/17 04:09 [place] # 0.6 K/mm3 (0.0-0.8) 03/03/17 04:09 Eos # 0.2 K/mm3 (0.0-0.4) 03/03/17 04:09 Baso # 0.0 K/mm3 (0.0-0.1) 03/03/17 04:09 Seg Neutrophils % 66.0 % (40.0-70.0) 03/03/17 04:09 Seg Neutrophils # 3.4 K/mm3 (1.8-7.7) 03/03/17 04:09 PT 15.8 Sec. (12.2-14.9) H 02/28/17 13:34 INR 1.20 (0.87-1.13) H 02/28/17 13:34 VBG pH 7.387 (7.320-7.420) 02/28/17 14:15 Sodium 140 mmol/L (137-145) 03/03/17 04:09 Potassium 3.7 mmol/L (3.6-5.0) 03/03/17 04:09 Chloride 107.5 mmol/L (98-107) H 03/03/17 04:09 Carbon Dioxide 24 mmol/L (22-30) 03/03/17 04:09 Anion Gap 12 mmol/L 03/03/17 04:09 BUN 8 mg/dL (9-20) L 03/03/17 04:09 Creatinine 0.2 mg/dL (0.8-1.5) L 03/03/17 04:09 Estimated GFR > 60 ml/min 03/03/17 04:09 BUN/Creatinine Ratio 40 % 03/03/17 04:09 Glucose 89 mg/dL (75-100) 03/03/17 04:09 Lactic Acid 1.80 mmol/L (0.7-2.0) 02/28/17 16:22 Calcium 7.9 mg/dL (8.4-10.2) L 03/03/17 04:09 Total Bilirubin 0.30 mg/dL (0.1-1.2) 02/28/17 13:34 AST 18 units/L (5-40) 02/28/17 13:34 ALT 12 units/L (7-56) 02/28/17 13:34 Alkaline Phosphatase 53 units/L (35-129) 02/28/17 13:34 Total Protein 6.1 g/dL (6.3-8.2) L 02/28/17 13:34 Albumin 2.9 g/dL (3.9-5) L 02/28/17 13:34 Albumin/Globulin Ratio 0.9 % 02/28/17 13:34 Urine Color Yellow (Yellow) 02/28/17 15:40 Urine Turbidity Clear (Clear) 02/28/17 15:40 Urine pH 5.0 (5.0-7.0) 02/28/17 15:40 Ur Specific [place] 1.023 (1.003-1.030) 02/28/17 15:40 Urine Protein <15 mg/dl mg/dL (Negative) 02/28/17 15:40 Urine Glucose (UA) Neg mg/dL (Negative) 02/28/17 15:40 Urine Ketones Tr mg/dL (Negative) 02/28/17 15:40 Urine Blood Neg (Negative) 02/28/17 15:40 Urine Nitrite Neg (Negative) 02/28/17 15:40 Urine Bilirubin Neg (Negative) 02/28/17 15:40 Urine Urobilinogen 2.0 mg/dL (<2.0) 02/28/17 15:40 Ur Leukocyte Esterase Neg (Negative) 02/28/17 15:40 Urine WBC (Auto) 2.0 /HPF (0.0-6.0) 02/28/17 15:40 Urine RBC (Auto) 4.0 /HPF (0.0-6.0) 02/28/17 15:40
[2017-03-04] MEDS: ZOSYN/NS 4.5GM/100ML 4.5 GM/100 ML VIAL IV SCH ×4 (00:44→18:02)
[2017-03-04] MEDS: VITAMIN C PO SCH (09:40)
[2017-03-04] MEDS: PEPCID PO SCH (09:40)
[2017-03-04] MEDS: XARELTO PO SCH (09:40)
[2017-03-04] MEDS: THERAGRAN Tab PO SCH (09:40)
[2017-03-04] MEDS: COLACE PO SCH ×2 (09:40→22:18)
[2017-03-04] MEDS: RisperDAL PO SCH ×2 (09:40→22:19)
[2017-03-04] MEDS: VANCOMYCIN/NS 1 GM/250 ML 1 GM/250 ML BAG IV SCH ×2 (10:36→22:17)
--- NOTE | 2017-03-04 12:49 | Progress Note ---
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 No family member was in the room. Hospitalist Physical - Physical exam Narrative exam: Non communicative The patient appeared well nourished and normally developed. Vital signs as documented. Head exam is unremarkable. No scleral icterus . Neck is without jugular venous distension, thyromegaly, or carotid bruits. Lungs are clear to auscultation. Cardiac exam reveals regular rate and Rhythm. First and second heart sounds normal. No murmurs, rubs or gallops. Abdominal exam reveals normal bowel sounds, no masses, no organomegaly and no aortic enlargement. Extremities contracted. Swelling and erythema of the right leg. Skin sacral decubitus ulcer, clean dressing on it. 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 No focal weakness. - Constitutional Vitals: Temp Pulse Resp BP Pulse Ox 99.6 F 88 20 125/58 90 03/04/17 08:19 03/04/17 08:19 03/04/17 08:19 03/04/17 08:19 03/04/17 08:19 Results - Labs CBC & Chem 7: 03/03/17 04:09 03/03/17 04:09 Labs: Laboratory Last Values WBC 5.2 K/mm3 (4.5-11.0) 03/03/17 04:09 RBC 3.01 M/mm3 (3.65-5.03) L 03/03/17 04:09 Hgb 9.3 gm/dl (11.8-15.2) L 03/03/17 04:09 Hct 27.2 % (35.5-45.6) L 03/03/17 04:09 MCV 90 fl (84-94) 03/03/17 04:09 MCH 31 pg (28-32) 03/03/17 04:09 MCHC 34 % (32-34) 03/03/17 04:09 RDW 13.6 % (13.2-15.2) 03/03/17 04:09 Plt Count 274 K/mm3 (140-440) 03/03/17 04:09 Lymph % (Auto) 18.7 % (13.4-35.0) 03/03/17 04:09 [place] % (Auto) 10.6 % (0.0-7.3) H 03/03/17 04:09 Eos % (Auto) 3.9 % (0.0-4.3) 03/03/17 04:09 Baso % (Auto) 0.8 % (0.0-1.8) 03/03/17 04:09 Lymph # 1.0 K/mm3 (1.2-5.4) L 03/03/17 04:09 [place] # 0.6 K/mm3 (0.0-0.8) 03/03/17 04:09 Eos # 0.2 K/mm3 (0.0-0.4) 03/03/17 04:09 Baso # 0.0 K/mm3 (0.0-0.1) 03/03/17 04:09 Seg Neutrophils % 66.0 % (40.0-70.0) 03/03/17 04:09 Seg Neutrophils # 3.4 K/mm3 (1.8-7.7) 03/03/17 04:09 PT 15.8 Sec. (12.2-14.9) H 02/28/17 13:34 INR 1.20 (0.87-1.13) H 02/28/17 13:34 VBG pH 7.387 (7.320-7.420) 02/28/17 14:15 Sodium 140 mmol/L (137-145) 03/03/17 04:09 Potassium 3.7 mmol/L (3.6-5.0) 03/03/17 04:09 Chloride 107.5 mmol/L (98-107) H 03/03/17 04:09 Carbon Dioxide 24 mmol/L (22-30) 03/03/17 04:09 Anion Gap 12 mmol/L 03/03/17 04:09 BUN 8 mg/dL (9-20) L 03/03/17 04:09 Creatinine 0.2 mg/dL (0.8-1.5) L 03/03/17 04:09 Estimated GFR > 60 ml/min 03/03/17 04:09 BUN/Creatinine Ratio 40 % 03/03/17 04:09 Glucose 89 mg/dL (75-100) 03/03/17 04:09 Lactic Acid 1.80 mmol/L (0.7-2.0) 02/28/17 16:22 Calcium 7.9 mg/dL (8.4-10.2) L 03/03/17 04:09 Total Bilirubin 0.30 mg/dL (0.1-1.2) 02/28/17 13:34 AST 18 units/L (5-40) 02/28/17 13:34 ALT 12 units/L (7-56) 02/28/17 13:34 Alkaline Phosphatase 53 units/L (35-129) 02/28/17 13:34 Total Protein 6.1 g/dL (6.3-8.2) L 02/28/17 13:34 Albumin 2.9 g/dL (3.9-5) L 02/28/17 13:34 Albumin/Globulin Ratio 0.9 % 02/28/17 13:34 Urine Color Yellow (Yellow) 02/28/17 15:40 Urine Turbidity Clear (Clear) 02/28/17 15:40 Urine pH 5.0 (5.0-7.0) 02/28/17 15:40 Ur Specific [place] 1.023 (1.003-1.030) 02/28/17 15:40 Urine Protein <15 mg/dl mg/dL (Negative) 02/28/17 15:40 Urine Glucose (UA) Neg mg/dL (Negative) 02/28/17 15:40 Urine Ketones Tr mg/dL (Negative) 02/28/17 15:40 Urine Blood Neg (Negative) 02/28/17 15:40 Urine Nitrite Neg (Negative) 02/28/17 15:40 Urine Bilirubin Neg (Negative) 02/28/17 15:40 Urine Urobilinogen 2.0 mg/dL (<2.0) 02/28/17 15:40 Ur Leukocyte Esterase Neg (Negative) 02/28/17 15:40 Urine WBC (Auto) 2.0 /HPF (0.0-6.0) 02/28/17 15:40 Urine RBC (Auto) 4.0 /HPF (0.0-6.0) 02/28/17 15:40 Vancomycin Trough 10.5 ug/mL (5.0-20.0) 03/04/17 08:58
[2017-03-05] MEDS: ZOSYN/NS 4.5GM/100ML 4.5 GM/100 ML VIAL IV SCH ×5 (00:11→12:50)
[2017-03-05 05:29] LABS: Basophils % (Auto) 1.1 % (0.0-1.8); Eosinophils % (Auto) 6.9 % (0.0-4.3); Hematocrit 29.7 % (35.5-45.6); Hemoglobin 9.9 gm/dl (11.8-15.2); Mean Corpuscular HGB Conc 33 % (32-34); Mean Corpuscular Hemoglobin 31 pg (28-32); Mean Corpuscular Volume 92 fl (84-94); Red Blood Count 3.22 M/mm3 (3.65-5.03); Red Cell Distribution Width 14.3 % (13.2-15.2); White Blood Count 7.4 K/mm3 (4.5-11.0)
[2017-03-05 05:34] LABS: Platelet Count 278 K/mm3 (140-440)
[2017-03-05 05:48] LABS: BUN/Creatinine Ratio 15; Blood Urea Nitrogen 6 mg/dL (9-20); Calcium 7.8 mg/dL (8.4-10.2); Carbon Dioxide 25 mmol/L (22-30); Chloride 107.3 mmol/L (98-107); Glucose 92 mg/dL (75-100); Sodium 143 mmol/L (137-145)
[2017-03-05 05:49] LABS: Anion Gap 15 mmol/L; Potassium 4.7 mmol/L (3.6-5.0)
[2017-03-05] MEDS: PEPCID PO SCH (10:09)
[2017-03-05] MEDS: COLACE PO SCH (10:09)
[2017-03-05] MEDS: VITAMIN C PO SCH (10:10)
[2017-03-05] MEDS: RisperDAL PO SCH ×2 (10:10→23:57)
[2017-03-05] MEDS: THERAGRAN Tab PO SCH (10:10)
[2017-03-05] MEDS: XARELTO PO SCH (10:11)
--- NOTE | 2017-03-05 11:11 | Progress Note ---
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 History Interval history: Patient was seen and evaluated this morning, patient's noncommunicative. No family member was in the room. Patient has episode of fever. Hospitalist Physical - Physical exam Narrative exam: Non communicative The patient appeared well nourished and normally developed. Vital signs as documented. Head exam is unremarkable. No scleral icterus . Neck is without jugular venous distension, thyromegaly, or carotid bruits. Lungs are clear to auscultation. Cardiac exam reveals regular rate and Rhythm. First and second heart sounds normal. No murmurs, rubs or gallops. Abdominal exam reveals normal bowel sounds, no masses, no organomegaly and no aortic enlargement. Extremities contracted. Swelling and erythema of the right leg. Skin sacral decubitus ulcer, clean dressing on it. 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 No focal weakness. - Constitutional Vitals: Temp Pulse Resp BP Pulse Ox 98.9 F 62 18 104/61 95 03/05/17 07:42 03/05/17 07:42 03/05/17 07:42 03/05/17 07:42 03/05/17 07:42 Results - Labs CBC & Chem 7: 03/05/17 04:59 03/05/17 04:59 Labs: Laboratory Last Values WBC 7.4 K/mm3 (4.5-11.0) 03/05/17 04:59 RBC 3.22 M/mm3 (3.65-5.03) L 03/05/17 04:59 Hgb 9.9 gm/dl (11.8-15.2) L 03/05/17 04:59 Hct 29.7 % (35.5-45.6) L 03/05/17 04:59 MCV 92 fl (84-94) 03/05/17 04:59 MCH 31 pg (28-32) 03/05/17 04:59 MCHC 33 % (32-34) 03/05/17 04:59 RDW 14.3 % (13.2-15.2) 03/05/17 04:59 Plt Count 278 K/mm3 (140-440) 03/05/17 04:59 Lymph % (Auto) 25.2 % (13.4-35.0) 03/05/17 04:59 [place] % (Auto) 13.1 % (0.0-7.3) H 03/05/17 04:59 Eos % (Auto) 6.9 % (0.0-4.3) H 03/05/17 04:59 Baso % (Auto) 1.1 % (0.0-1.8) 03/05/17 04:59 Lymph # 1.9 K/mm3 (1.2-5.4) 03/05/17 04:59 [place] # 1.0 K/mm3 (0.0-0.8) H 03/05/17 04:59 Eos # 0.5 K/mm3 (0.0-0.4) H 03/05/17 04:59 Baso # 0.1 K/mm3 (0.0-0.1) 03/05/17 04:59 Seg Neutrophils % 53.7 % (40.0-70.0) 03/05/17 04:59 Seg Neutrophils # 4.0 K/mm3 (1.8-7.7) 03/05/17 04:59 PT 15.8 Sec. (12.2-14.9) H 02/28/17 13:34 INR 1.20 (0.87-1.13) H 02/28/17 13:34 VBG pH 7.387 (7.320-7.420) 02/28/17 14:15 Sodium 143 mmol/L (137-145) 03/05/17 04:59 Potassium 4.7 mmol/L (3.6-5.0) D 03/05/17 04:59 Chloride 107.3 mmol/L (98-107) H 03/05/17 04:59 Carbon Dioxide 25 mmol/L (22-30) 03/05/17 04:59 Anion Gap 15 mmol/L 11/27/17 04:59 BUN 6 mg/dL (9-20) L 03/05/17 04:59 Creatinine 0.4 mg/dL (0.8-1.5) L D 03/05/17 04:59 Estimated GFR > 60 ml/min 03/05/17 04:59 BUN/Creatinine Ratio 15 % 03/05/17 04:59 Glucose 92 mg/dL (75-100) 03/05/17 04:59 Lactic Acid 1.80 mmol/L (0.7-2.0) 02/28/17 16:22 Calcium 7.8 mg/dL (8.4-10.2) L 03/05/17 04:59 Total Bilirubin 0.30 mg/dL (0.1-1.2) 02/28/17 13:34 AST 18 units/L (5-40) 02/28/17 13:34 ALT 12 units/L (7-56) 02/28/17 13:34 Alkaline Phosphatase 53 units/L (35-129) 02/28/17 13:34 Total Protein 6.1 g/dL (6.3-8.2) L 02/28/17 13:34 Albumin 2.9 g/dL (3.9-5) L 02/28/17 13:34 Albumin/Globulin Ratio 0.9 % 02/28/17 13:34 Urine Color Yellow (Yellow) 02/28/17 15:40 Urine Turbidity Clear (Clear) 02/28/17 15:40 Urine pH 5.0 (5.0-7.0) 02/28/17 15:40 Ur Specific [place] 1.023 (1.003-1.030) 02/28/17 15:40 Urine Protein <15 mg/dl mg/dL (Negative) 02/28/17 15:40 Urine Glucose (UA) Neg mg/dL (Negative) 02/28/17 15:40 Urine Ketones Tr mg/dL (Negative) 02/28/17 15:40 Urine Blood Neg (Negative) 02/28/17 15:40 Urine Nitrite Neg (Negative) 02/28/17 15:40 Urine Bilirubin Neg (Negative) 02/28/17 15:40 Urine Urobilinogen 2.0 mg/dL (<2.0) 02/28/17 15:40 Ur Leukocyte Esterase Neg (Negative) 02/28/17 15:40 Urine WBC (Auto) 2.0 /HPF (0.0-6.0) 02/28/17 15:40 Urine RBC (Auto) 4.0 /HPF (0.0-6.0) 02/28/17 15:40 Vancomycin Trough 10.5 ug/mL (5.0-20.0) 03/04/17 08:58
[2017-03-05] MEDS ORDERED: VANCOMYCIN/NS 1 GM/250 ML 1 GM/250 ML BAG IV SCH (14:00)
[2017-03-05] MEDS: VANCOMYCIN/NS 1 GM/250 ML 1 GM/250 ML BAG IV SCH ×2 (16:17→23:58)
[2017-03-06] MEDS: ZOSYN/NS 4.5GM/100ML 4.5 GM/100 ML VIAL IV SCH ×3 (08:14→18:52)
[2017-03-06] MEDS: PEPCID PO SCH (09:52)
[2017-03-06] MEDS: RisperDAL PO SCH ×2 (09:52→22:29)
[2017-03-06] MEDS: COLACE PO SCH ×3 (09:52→22:29)
[2017-03-06] MEDS: XARELTO PO SCH (09:52)
[2017-03-06] MEDS: VITAMIN C PO SCH (09:52)
[2017-03-06] MEDS: THERAGRAN Tab PO SCH (09:52)
--- NOTE | 2017-03-06 13:08 | Progress Note ---
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 History Interval history: Patient was seen and evaluated this morning, patient's noncommunicative. No family member was in the room. Hospitalist Physical - Physical exam Narrative exam: Non communicative The patient appeared well nourished and normally developed. Vital signs as documented. Head exam is unremarkable. No scleral icterus . Neck is without jugular venous distension, thyromegaly, or carotid bruits. Lungs are clear to auscultation. Cardiac exam reveals regular rate and Rhythm. First and second heart sounds normal. No murmurs, rubs or gallops. Abdominal exam reveals normal bowel sounds, no masses, no organomegaly and no aortic enlargement. Extremities contracted. Swelling and erythema of the right leg. Skin sacral decubitus ulcer, clean dressing on it. 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 No focal weakness. - Constitutional Vitals: Temp Pulse Resp BP Pulse Ox 98.5 F 77 18 114/60 95 03/06/17 08:08 03/06/17 08:08 03/06/17 08:08 03/06/17 08:08 03/06/17 08:08 Results - Labs CBC & Chem 7: 03/05/17 04:59 03/05/17 04:59 Labs: Laboratory Last Values WBC 7.4 K/mm3 (4.5-11.0) 03/05/17 04:59 RBC 3.22 M/mm3 (3.65-5.03) L 03/05/17 04:59 Hgb 9.9 gm/dl (11.8-15.2) L 03/05/17 04:59 Hct 29.7 % (35.5-45.6) L 03/05/17 04:59 MCV 92 fl (84-94) 03/05/17 04:59 MCH 31 pg (28-32) 03/05/17 04:59 MCHC 33 % (32-34) 03/05/17 04:59 RDW 14.3 % (13.2-15.2) 03/05/17 04:59 Plt Count 278 K/mm3 (140-440) 03/05/17 04:59 Lymph % (Auto) 25.2 % (13.4-35.0) 03/05/17 04:59 [place] % (Auto) 13.1 % (0.0-7.3) H 03/05/17 04:59 Eos % (Auto) 6.9 % (0.0-4.3) H 03/05/17 04:59 Baso % (Auto) 1.1 % (0.0-1.8) 03/05/17 04:59 Lymph # 1.9 K/mm3 (1.2-5.4) 03/05/17 04:59 [place] # 1.0 K/mm3 (0.0-0.8) H 03/05/17 04:59 Eos # 0.5 K/mm3 (0.0-0.4) H 03/05/17 04:59 Baso # 0.1 K/mm3 (0.0-0.1) 03/05/17 04:59 Seg Neutrophils % 53.7 % (40.0-70.0) 03/05/17 04:59 Seg Neutrophils # 4.0 K/mm3 (1.8-7.7) 03/05/17 04:59 PT 15.8 Sec. (12.2-14.9) H 02/28/17 13:34 INR 1.20 (0.87-1.13) H 02/28/17 13:34 VBG pH 7.387 (7.320-7.420) 02/28/17 14:15 Sodium 143 mmol/L (137-145) 03/05/17 04:59 Potassium 4.7 mmol/L (3.6-5.0) D 03/05/17 04:59 Chloride 107.3 mmol/L (98-107) H 03/05/17 04:59 Carbon Dioxide 25 mmol/L (22-30) 03/05/17 04:59 Anion Gap 15 mmol/L 03/05/17 04:59 BUN 6 mg/dL (9-20) L 03/05/17 04:59 Creatinine 0.4 mg/dL (0.8-1.5) L D 03/05/17 04:59 Estimated GFR > 60 ml/min 03/05/17 04:59 BUN/Creatinine Ratio 15 % 03/05/17 04:59 Glucose 92 mg/dL (75-100) 03/05/17 04:59 Lactic Acid 1.80 mmol/L (0.7-2.0) 02/28/17 16:22 Calcium 7.8 mg/dL (8.4-10.2) L 03/05/17 04:59 Total Bilirubin 0.30 mg/dL (0.1-1.2) 02/28/17 13:34 AST 18 units/L (5-40) 02/28/17 13:34 ALT 12 units/L (7-56) 02/28/17 13:34 Alkaline Phosphatase 53 units/L (35-129) 02/28/17 13:34 Total Protein 6.1 g/dL (6.3-8.2) L 02/28/17 13:34 Albumin 2.9 g/dL (3.9-5) L 02/28/17 13:34 Albumin/Globulin Ratio 0.9 % 02/28/17 13:34 Urine Color Yellow (Yellow) 02/28/17 15:40 Urine Turbidity Clear (Clear) 02/28/17 15:40 Urine pH 5.0 (5.0-7.0) 02/28/17 15:40 Ur Specific [place] 1.023 (1.003-1.030) 02/28/17 15:40 Urine Protein <15 mg/dl mg/dL (Negative) 02/28/17 15:40 Urine Glucose (UA) Neg mg/dL (Negative) 02/28/17 15:40 Urine Ketones Tr mg/dL (Negative) 02/28/17 15:40 Urine Blood Neg (Negative) 02/28/17 15:40 Urine Nitrite Neg (Negative) 02/28/17 15:40 Urine Bilirubin Neg (Negative) 02/28/17 15:40 Urine Urobilinogen 2.0 mg/dL (<2.0) 02/28/17 15:40 Ur Leukocyte Esterase Neg (Negative) 02/28/17 15:40 Urine WBC (Auto) 2.0 /HPF (0.0-6.0) 02/28/17 15:40 Urine RBC (Auto) 4.0 /HPF (0.0-6.0) 02/28/17 15:40 Vancomycin Trough 10.5 ug/mL (5.0-20.0) 03/04/17 08:58
--- NOTE | 2017-03-06 14:41 | Consultation ---
History of Present Illness - HPI Consult date: 03/06/17 Consult reason: fracture History of present illness: 67-year-old man with history of DVT, PE, seizure, CVA From the wound care center for evaluation of right leg swelling and redness. He is unable to give a history, review of system unobtainable. Xrays taken of the left foot revealed fracture 5th metatarsal neck with slight displacement. Patient non-ambulatory at [facility].... Medications and Allergies Allergies Allergy/AdvReac Type Severity Reaction Status Date / Time No Known Allergies Allergy Verified 02/28/17 12:30 Home Medications Medication Instructions Recorded Confirmed Last Taken Type Divalproex ER [Depakote ER] 500 mg PO HS 04/11/13 03/01/17 02/27/17 20:00 History Docusate Sodium 100 mg PO BID 02/12/15 03/01/17 02/28/17 08:00 History Ensure 1 dose PO BID 02/12/15 03/01/17 02/28/17 10:00 History Multivitamins 1 tab PO DAILY 02/12/15 03/01/17 02/28/17 08:00 History Ranitidine HCl 150 mg PO DAILY 02/12/15 03/01/17 02/27/17 19:00 History RisperiDONE 1 mg PO DAILY 02/12/15 03/01/17 02/27/17 20:00 History Xarelto 20 mg PO DAILY 02/12/15 03/01/17 09/26/15 History 20mg Ascorbic Acid [Vitamin C] 500 mg PO DAILY 09/27/15 03/01/17 02/28/17 08:00 History Collagenase [Santyl] 1 applicatio TP QDAY 03/01/17 03/01/17 Unknown History Multivitamin/Iron/Folic Acid 1 each PO DAILY 03/01/17 03/01/17 02/28/17 08:00 History [Centrum Adults Tablet] Santyl 250 gm TP DAILY 03/01/17 03/01/17 Unknown History Active Meds: Active Medications Acetaminophen (Tylenol) 650 mg PO Q4H PRN PRN Reason: Pain MILD(1-3)/Fever >100.5/MICHELLE Last Admin: 03/02/17 15:28 Dose: 650 mg Ascorbic Acid (Vitamin C) 500 mg PO DAILY [facility] Last Admin: 03/06/17 09:52 Dose: 500 mg Divalproex Sodium (Depakote Er) 500 mg PO HS [facility] Last Admin: 03/05/17 23:57 Dose: 500 mg Docusate Sodium (Colace) 100 mg PO BID [facility] Last Admin: 03/06/17 09:52 Dose: 100 mg Famotidine (Pepcid) 20 mg PO QAM [facility] Last Admin: 03/06/17 09:52 Dose: 20 mg Piperacillin Sod/Tazobactam Sod (Zosyn/Ns 4.5gm/100ml) 4.5 gm in 100 mls @ 200 mls/hr IV Q6HR [facility] PRN Reason: Protocol Last Admin: 03/06/17 12:07 Dose: 200 mls/hr Multivitamins (Theragran Tab) 1 each PO DAILY [facility] Last Admin: 03/06/17 09:52 Dose: 1 each Ondansetron HCl (Zofran) 4 mg IV Q8H PRN PRN Reason: N/V unrelieved by Arthur Risperidone (Risperdal) 1 mg PO BID [facility] Last Admin: 03/06/17 09:52 Dose: 1 mg Rivaroxaban (Xarelto) 20 mg PO DAILY [facility] Last Admin: 03/06/17 09:52 Dose: 20 mg Physical Examination - Physical exam Narrative exam: LE's - bilateral lower extremity edema, no erythema,no gross defomity noted at left 5th toe, good capillary refill... Assessment and Plan left 5th metatarsal fracture recommend - patient non-ambulator therefore simply treat conservatively with pain meds only, no immobilization needed
[2017-03-06] MEDS: VANCOMYCIN/NS 1 GM/250 ML 1 GM/250 ML BAG IV SCH (20:18)
[2017-03-07] MEDS: ZOSYN/NS 4.5GM/100ML 4.5 GM/100 ML VIAL IV SCH ×3 (00:13→12:17)
--- NOTE | 2017-03-07 07:25 | Progress Note ---
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 appreciated "recommend - patient non-ambulator therefore simply treat conservatively with pain meds only, no immobilization needed" History Interval history: no fever no vomiting, no seizure, no falls, no change in [place] Hospitalist Physical - Physical exam Narrative exam: Non communicative The patient appeared well nourished and normally developed. Vital signs as documented. Head exam is unremarkable. No scleral icterus . Neck is without jugular venous distension, thyromegaly, or carotid bruits. Lungs are clear to auscultation. Cardiac exam reveals regular rate and Rhythm. First and second heart sounds normal. No murmurs, rubs or gallops. Abdominal exam reveals normal bowel sounds, no masses, no organomegaly and no aortic enlargement. Extremities contracted. Swelling and erythema of the right leg. Skin sacral decubitus ulcer, clean dressing on it. 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 No focal weakness. - Constitutional Vitals: Temp Pulse Resp BP Pulse Ox 98.9 F 82 18 96/62 93 03/06/17 14:26 03/06/17 14:26 03/06/17 14:26 03/06/17 14:26 03/06/17 14:26 Results - Labs CBC & Chem 7: 03/05/17 04:59 03/05/17 04:59 Labs: Laboratory Last Values WBC 7.4 K/mm3 (4.5-11.0) 03/05/17 04:59 RBC 3.22 M/mm3 (3.65-5.03) L 03/05/17 04:59 Hgb 9.9 gm/dl (11.8-15.2) L 03/05/17 04:59 Hct 29.7 % (35.5-45.6) L 03/05/17 04:59 MCV 92 fl (84-94) 03/05/17 04:59 MCH 31 pg (28-32) 03/05/17 04:59 MCHC 33 % (32-34) 03/05/17 04:59 RDW 14.3 % (13.2-15.2) 03/05/17 04:59 Plt Count 278 K/mm3 (140-440) 03/05/17 04:59 Lymph % (Auto) 25.2 % (13.4-35.0) 03/05/17 04:59 [place] % (Auto) 13.1 % (0.0-7.3) H 03/05/17 04:59 Eos % (Auto) 6.9 % (0.0-4.3) H 03/05/17 04:59 Baso % (Auto) 1.1 % (0.0-1.8) 03/05/17 04:59 Lymph # 1.9 K/mm3 (1.2-5.4) 03/05/17 04:59 [place] # 1.0 K/mm3 (0.0-0.8) H 03/05/17 04:59 Eos # 0.5 K/mm3 (0.0-0.4) H 03/05/17 04:59 Baso # 0.1 K/mm3 (0.0-0.1) 03/05/17 04:59 Seg Neutrophils % 53.7 % (40.0-70.0) 03/05/17 04:59 Seg Neutrophils # 4.0 K/mm3 (1.8-7.7) 03/05/17 04:59 PT 15.8 Sec. (12.2-14.9) H 02/28/17 13:34 INR 1.20 (0.87-1.13) H 02/28/17 13:34 VBG pH 7.387 (7.320-7.420) 02/28/17 14:15 Sodium 143 mmol/L (137-145) 03/05/17 04:59 Potassium 4.7 mmol/L (3.6-5.0) D 03/05/17 04:59 Chloride 107.3 mmol/L (98-107) H 03/05/17 04:59 Carbon Dioxide 25 mmol/L (22-30) 03/05/17 04:59 Anion Gap 15 mmol/L 03/05/17 04:59 BUN 6 mg/dL (9-20) L 03/05/17 04:59 Creatinine 0.4 mg/dL (0.8-1.5) L D 03/05/17 04:59 Estimated GFR > 60 ml/min 03/05/17 04:59 BUN/Creatinine Ratio 15 % 03/05/17 04:59 Glucose 92 mg/dL (75-100) 03/05/17 04:59 Lactic Acid 1.80 mmol/L (0.7-2.0) 02/28/17 16:22 Calcium 7.8 mg/dL (8.4-10.2) L 03/05/17 04:59 Total Bilirubin 0.30 mg/dL (0.1-1.2) 02/28/17 13:34 AST 18 units/L (5-40) 02/28/17 13:34 ALT 12 units/L (7-56) 02/28/17 13:34 Alkaline Phosphatase 53 units/L (35-129) 02/28/17 13:34 Total Protein 6.1 g/dL (6.3-8.2) L 02/28/17 13:34 Albumin 2.9 g/dL (3.9-5) L 02/28/17 13:34 Albumin/Globulin Ratio 0.9 % 02/28/17 13:34 Urine Color Yellow (Yellow) 02/28/17 15:40 Urine Turbidity Clear (Clear) 02/28/17 15:40 Urine pH 5.0 (5.0-7.0) 02/28/17 15:40 Ur Specific [place] 1.023 (1.003-1.030) 02/28/17 15:40 Urine Protein <15 mg/dl mg/dL (Negative) 02/28/17 15:40 Urine Glucose (UA) Neg mg/dL (Negative) 02/28/17 15:40 Urine Ketones Tr mg/dL (Negative) 02/28/17 15:40 Urine Blood Neg (Negative) 02/28/17 15:40 Urine Nitrite Neg (Negative) 02/28/17 15:40 Urine Bilirubin Neg (Negative) 02/28/17 15:40 Urine Urobilinogen 2.0 mg/dL (<2.0) 02/28/17 15:40 Ur Leukocyte Esterase Neg (Negative) 02/28/17 15:40 Urine WBC (Auto) 2.0 /HPF (0.0-6.0) 02/28/17 15:40 Urine RBC (Auto) 4.0 /HPF (0.0-6.0) 02/28/17 15:40 Vancomycin Trough 10.5 ug/mL (5.0-20.0) 03/04/17 08:58
[2017-03-07] MEDS: PEPCID PO SCH (09:01)
[2017-03-07] MEDS: VITAMIN C PO SCH (09:01)
[2017-03-07] MEDS: RisperDAL PO SCH ×2 (09:01→21:55)
[2017-03-07] MEDS: XARELTO PO SCH (09:01)
[2017-03-07] MEDS: COLACE PO SCH ×2 (09:01→21:55)
[2017-03-07] MEDS: THERAGRAN Tab PO SCH (09:02)
--- NOTE | 2017-03-07 11:22 | Discharge Summary ---
Providers - Providers Date of Admission: 02/28/17 22:45 Attending physician: BRYAN ALMONTE MD 03/01/17 00:06 Consult to Wound/ET Nurse [CONS] Routine Reason For Exam: wound eval 03/01/17 05:35 Consult to Physician [CONS] Routine Consulting Provider: CORTNEY DING Reason For Exam: fx toe Place consult to:: ANSWERING SERVICE Notified:: YES If yes, spoke with:: JORGE A Suarez called:: 08:07 Comment:: MISHA 03/07/17 07:28 Physical Therapy Evaluation and Treat [CONS] Routine Comment: Reason For Exam: debility 03/07/17 07:29 Consult to Physician [CONS] Routine Consulting Provider: GALINA MILLS Reason For Exam: uti, cellulitis Place consult to:: dr. fregoso Notified:: yes Phone number called:: [phone] Was contact made?: Yes If yes, spoke with:: dr. fregoso Time called:: 08:00 Comment:: misha Primary care physician: [employer] Hospitalization Condition: Stable Hospital course: 67-year-old male with past medical history significant for mental retardation, seizure, decubitus ulcer admitted from wound care clinic for cellulitis. Upon review of his LE, it appeared to be a form of dermatitis. He was rx with empiric abx for suspected RLE cellulitis, was seen by ID who did not feel that it was cellulitis. Therefore abx were dc. he received wound care for sacral ulcer. he was noted to have left foot fracture for which he was evaluated by orthopedic surgery, and conservative management was recommended for him. he was therefore discharged Diagnosis Cellulitis of the right lower extremity Pressure ulcer, sacral, POA Seizure disorder Functional quadriplegia History of PE/DVT Anemia left 5th metatarsal fracture - Disposition: DC-01 TO HOME OR SELFCARE Time spent for discharge: 33 minutes Core Measure Documentation - Palliative Care Palliative Care/ Comfort Measures: Not Applicable - Core Measures Any of the following diagnoses?: none Exam - Physical Exam Narrative exam: Non communicative The patient appeared well nourished and normally developed. Vital signs as documented. Head exam is unremarkable. No scleral icterus . Neck is without jugular venous distension, thyromegaly, or carotid bruits. Lungs are clear to auscultation. Cardiac exam reveals regular rate and Rhythm. First and second heart sounds normal. No murmurs, rubs or gallops. Abdominal exam reveals normal bowel sounds, no masses, no organomegaly and no aortic enlargement. Extremities contracted. Swelling and erythema of the right leg. Skin sacral decubitus ulcer, clean dressing on it. HEAT TRE[employer] P[employer]ER: Alert but non communicative. No focal weakness. - Constitutional Vitals: Temp Pulse Resp BP Pulse Ox 97.7 F 86 20 106/74 93 03/07/17 08:31 03/07/17 10:00 03/07/17 10:00 03/07/17 08:31 03/07/17 10:00 - Respiratory Respiratory: bilateral: CTA - Cardiovascular Heart Sounds: Absent: rub, click - Psychiatric Psychiatric: intact judgment & insight Plan Follow up with: PRIMARY CAREMD [Primary Care Provider] - 7 Days Forms: Warfarin Discharge Instruction Prescriptions: Warfarin [Coumadin] 5 mg PO DAILY@1700 #30 tablet
--- NOTE | 2017-03-07 11:49 | Consultation ---
History of Present Illness - Reason for Consult Consult date: 03/07/17 cellulitis Requesting physician: BRYAN MACKENZIE - History of Present Illness 67 years old male with history of cerebral palsy, DVT, PE, seizure and CVA sent on 02/28/17 from his wound care center for evaluation of right leg swelling and redness. Patient has a chronic right hip wound which is healing. Patient is non verbal or communicative. History is obtained from review of medical records. In the ED, intial temp 98.6, WBC 7.4, Hg 9.4, creat 0.3. UA neg Microbiology: Blood cultures: 02/28 neg Urine cultures: 02/28 Pseudomonas Current Antimicrobials: Zosyn 03/01 Previous Antimicrobials: Past History Past Medical History: other (cerebral palsy ) Past Surgical History: No surgical history Social history: no significant social history Medications and Allergies Allergies Allergy/AdvReac Type Severity Reaction Status Date / Time No Known Allergies Allergy Verified 02/28/17 12:30 Home Medications Medication Instructions Recorded Confirmed Last Taken Type Divalproex ER [Depakote ER] 500 mg PO HS 04/11/13 03/01/17 02/27/17 20:00 History Docusate Sodium 100 mg PO BID 02/12/15 03/01/17 02/28/17 08:00 History Ensure 1 dose PO BID 02/12/15 03/01/17 02/28/17 10:00 History Multivitamins 1 tab PO DAILY 02/12/15 03/01/17 02/28/17 08:00 History Ranitidine HCl 150 mg PO DAILY 02/12/15 03/01/17 02/27/17 19:00 History RisperiDONE 1 mg PO DAILY 02/12/15 03/01/17 02/27/17 20:00 History Xarelto 20 mg PO DAILY 02/12/15 03/01/17 09/26/15 History 20mg Ascorbic Acid [Vitamin C] 500 mg PO DAILY 09/27/15 03/01/17 02/28/17 08:00 History Collagenase [Santyl] 1 applicatio TP QDAY 03/01/17 03/01/17 Unknown History Multivitamin/Iron/Folic Acid 1 each PO DAILY 03/01/17 03/01/17 02/28/17 08:00 History [Centrum Adults Tablet] Santyl 250 gm TP DAILY 03/01/17 03/01/17 Unknown History Active Meds: Active Medications Acetaminophen (Tylenol) 650 mg PO Q4H PRN PRN Reason: Pain MILD(1-3)/Fever >100.5/MICHELLE Last Admin: 03/02/17 15:28 Dose: 650 mg Ascorbic Acid (Vitamin C) 500 mg PO DAILY [facility] Last Admin: 03/07/17 09:01 Dose: 500 mg Divalproex Sodium (Depakote Er) 500 mg PO HS [facility] Last Admin: 03/06/17 22:29 Dose: 500 mg Docusate Sodium (Colace) 100 mg PO BID [facility] Last Admin: 03/07/17 09:01 Dose: 100 mg Famotidine (Pepcid) 20 mg PO QAM [facility] Last Admin: 03/07/17 09:01 Dose: 20 mg Piperacillin Sod/Tazobactam Sod (Zosyn/Ns 4.5gm/100ml) 4.5 gm in 100 mls @ 200 mls/hr IV Q6HR [facility] PRN Reason: Protocol Stop: 03/07/17 23:59 Last Admin: 03/07/17 05:23 Dose: 200 mls/hr Multivitamins (Theragran Tab) 1 each PO DAILY [facility] Last Admin: 03/07/17 09:02 Dose: 1 each Ondansetron HCl (Zofran) 4 mg IV Q8H PRN PRN Reason: N/V unrelieved by Regsue Risperidone (Risperdal) 1 mg PO BID [facility] Last Admin: 03/07/17 09:01 Dose: 1 mg Rivaroxaban (Xarelto) 20 mg PO DAILY [facility] Last Admin: 03/07/17 09:01 Dose: 20 mg Review of Systems ROS unobtainable: due to mental status Physical Examination - Physical Exam Narrative exam: Assessment: 1) Right hip chronic decubitus - non infected 2) Sacral stage II - non infected 3) Pseudomonas in urine with negative urine culture - likely colonization 4) Right leg edema / diffuse ecchymoses - ? cellulitis ? old trauma 5) Cerebral palsy Plan: -stop zosyn -no need for systemic antibiotics -continue wound care I am signing off Thank you Dr Mackenzie for your consultation, will follow up with you. Isha Garsia MD Infectious Diseases Specialist [facility] ([facility]) M [phone] O [phone] - Constitutional Vitals: Vital Signs Temp Pulse Resp BP Pulse Ox 97.7 F 86 20 106/74 93 03/07/17 08:31 03/07/17 10:00 03/07/17 10:00 03/07/17 08:31 03/07/17 10:00 Temperature -Last 24 Hours Temperature 97.7 F Temperature 98.9 F Results - Labs CBC & Chem 7: 03/05/17 04:59 03/05/17 04:59
[2017-03-07 16:13] LABS: INR 2.14 (0.87-1.13)
[2017-03-07] MEDS: COUMADIN PO SCH (17:21)
[2017-03-07] MEDS: LOVENOX SUB-Q SCH (21:55)
[2017-03-07] MEDS ORDERED: LOVENOX SUB-Q SCH (22:00)
[2017-03-08 04:55] LABS: INR 1.48 (0.87-1.13)
[2017-03-08] MEDS: RisperDAL PO SCH (11:27)
[2017-03-08] MEDS: VITAMIN C PO SCH (11:27)
[2017-03-08] MEDS: PEPCID PO SCH (11:27)
[2017-03-08] MEDS: THERAGRAN Tab PO SCH (11:27)
[2017-03-08] MEDS: COLACE PO SCH (11:27)
[2017-03-08] MEDS: LOVENOX SUB-Q SCH (11:28)
--- NOTE | 2017-03-08 14:51 | Progress Note ---
Subjective Date of service: 03/08/17 Objective - Constitutional Vitals: Vital Signs Temp Pulse Resp BP Pulse Ox 98.3 F 61 20 95/55 94 03/08/17 07:38 03/08/17 07:38 03/08/17 07:38 03/08/17 07:38 03/08/17 07:38 Temperature -Last 24 Hours Temperature 98.3 F Temperature 98.4 F Temperature 98.8 F - Labs CBC & Chem 7: 03/05/17 04:59 03/05/17 04:59 Labs: Abnormal lab results 03/07/17 03/08/17 Range/Units 15:18 03:50 PT 24.9 H 18.7 H (12.2-14.9) Sec. INR 2.14 H 1.48 H (0.87-1.13)
[2017-03-08 14:52] VITALS: BP 92/62
[2017-03-08] MEDS: COUMADIN PO SCH (17:13)
--- NOTE | 2017-03-09 07:46 | Vascular Lab Report ---
LOWER EXTREMITY VENOUS DUPLEX: REASON FOR EXAM: Edema of the lower extremities. COMMENTS ON THE RIGHT: All veins visualized are freely compressible without evidence of internal echogenicity. Flow is spontaneous and phasic throughout. COMMENTS ON THE LEFT: Chronic nonocclusive DVT is noted in the common femoral vein. The remaining veins visualized are freely compressible without evidence of internal echogenicity. Spontaneous and phasic flow is present proximally. IMPRESSION: Chronic venous thrombosis in the left lower extremity
--- NOTE | 2017-03-13 15:31 | Query-Infection ---
Dear ____Avril Date:___03/13/17 Linux System Administrator/CDS:___[place] / [place] Phone#:__[phone] Exercise your independent professional judgment when responding to this query. Questions asked do not imply a particular answer is desired or expected. We greatly appreciate your clarification on this issue. Clinical Documentation States: 67 year old male was admitted on 02/28/17 The discharge summary (Dr. Mackenzie) states " 67-year-old male with past medical history significant for mental retardation, seizure, decubitus ulcer admitted from wound care clinic for cellulitis Cellulitis of the right lower extremity - Patient is on Zosyn, D/anam Vancomycin - culture grew Pseudomonas aeroginosa " Temperature: 101.9 Pulse rate: 97 Clinical findings show: (please check applicable parameters) Infection, known /suspected, with some of the following indicators; Specify the infection: 3 General parameters [ x] Fever (core temp >38.30C or 100.40F) [ ] Hypothermia (core temp <36C) [ x] Heart rate >90 bpm [ ] Tachypnea: >20 bpm or pCO2 < 32 mmHg [ ] Altered mental status [ ] Significant edema / +ve fluid balance (>20 ml/kg 24 h) [ ] Hyperglycemia (Bl. glucose >110 mg/dl) w/o diabetes Inflammatory parameters [ ] Leukocytosis (white blood cell count >12,000/l) [ ] Leukopenia (white blood cell count <4,000/l) [ ] Bandemia (immature WBC > 10%) [ ] Leucocyte Left Shift [ ] Plasma procalcitonin>2 SD above the normal value Hemodynamic and tissue perfusion parameters [ ] Arterial hypotension(SBP <90 mmHg, MAP <70 mmHg,or a SBP drop >40 mmHg in adults) [ ] Hyperlactatemia (>3 mmol/l) [ ] Anion Gap (> 11mEG/l) [ ] Decreased capillary refill or mottling Organ dysfunction parameters [ ] Arterial hypoxemia (PaO2/FIO2 <300) [ ] Creatinine increase =0.5 mg/dl [ ] Acute oliguria (urine output <0.5 ml | kg |h or 45 mM/l for at least 2 hrs) [ ] Coagulation abnormalities (INR >1.5 or activated partial thromboplastin time >60 s) [ ] Ileus (absent [place] sounds) [ ] Thrombocytopenia (platelet count <100,000/l) [ ] Hyperbilirubinemia (plasma total bilirubin >4 mg/dl) According to the clinical indications above, can Bacteremia be further specified? If so, please indicate below and in your Progress Notes and/ or Discharge Summary. Indicate if the condition was present on admission. PHYSICIAN RESPONSE: [x ] Sepsis [ ] Severe Sepsis [ ] Septic Shock [ ] Septicemia [ ] Sepsis now resolved [ ] SIRS due to non-infectious cause with organ dysfunction [ ] SIRS due to non-infectious cause without organ dysfunction [ ] Other: [ ] Comment/Explanation: Present on Admission: [x ] Yes (Y) [ ] Clinically undeterminable (W) [ ] No (N) [ ] Ruled Out Please also document response in your Progress Notes and/or Discharge Summary and indicate if the condition was present on admission Notes: SIRS/ SIRS WITH ORGAN DYSFUNCTION Systemic inflammatory response syndrome (SIRS) generally refers to the systemic response to trauma/mary or other insult such as Acute Myocardial Infarction, Acute Pancreatitis, and Major Surgery with symptoms including fever, tachycardia , tachypnea, and leukocytosis (1). BACTEREMIA Presence of viable bacteria in the circulating blood (2). This term is reserved for patients that do not manifest above SIRS response. SEPTICEMIA Generally refers to a systemic disease associated with the presence of pathological microorganisms or toxins in the blood, which can include bacteria, viruses, fungi or other organisms (1). SEPSIS Generally refers to SIRS due infection (1). SEVERE SEPSIS Generally refers to sepsis associated with acute organ dysfunction (1). SEPTIC SHOCK Generally refers to circulatory failure associated with severe sepsis (2), and defined as hypotension or hypoperfusion despite adequate fluid resuscitation (1 hour) (3). REFERENCES: 1. [place] [employer]/Society of Critical Care Medicine Consensus Conference. Definitions for sepsis and organ failure and guidelines for the use of innovative therapies in sepsis. Critical Care Med 1992;20:864 - 74. 2. Ramon cain MM, Nancy MP, Braxton TAVO, David E, Florin D, Tarun D, Garcia J, [place] SM , Homer JL, Reji G; International Sepsis Definitions Conference. 2001 SCCM/ESICM/ACCP/ATS/SIS International Sepsis Definitions Conference. Intensive Care Med. 2002;29(4):530-8. Epub 2002Jul 04. Review. PubMed PMID:[id number] 3. ICD-9-CM Official Guidelines for Coding and Reporting 4. Medscape Drugs, Diseases and Procedures references 5. [employer] Textbook of Internal Medicine. 18th Edition MTDD
== END 2017-03-08 19:05 | disposition home or self-care (01) | DRG 871 ==
LOC: ED 12:16 → 2B-ACE 22:45
PROVIDERS: ADMIT Internal Medicine; ATTEND Internal Medicine
DX: A41.9 Sepsis, unspecified organism (principal); R53.2 Functional quadriplegia; G40.909 Epilepsy, unspecified, not intractable, without status epilepticus; D64.9 Anemia, unspecified; Z86.73 Personal history of transient ischemic attack (TIA), and cerebral infarction without residual deficits; Z86.718 Personal history of other venous thrombosis and embolism; Z86.711 Personal history of pulmonary embolism; L89.212 Pressure ulcer of right hip, stage 2; G80.9 Cerebral palsy, unspecified; I34.0 Nonrheumatic mitral (valve) insufficiency; Z79.01 Long term (current) use of anticoagulants; F79 Unspecified intellectual disabilities; S92.912A Unspecified fracture of left toe(s), initial encounter for closed fracture; W19.XXXA Unspecified fall, initial encounter; Y93.89 Activity, other specified; Y92.89 Other specified places as the place of occurrence of the external cause; L89.309 Pressure ulcer of unspecified buttock, unspecified stage; S92.342A Displaced fracture of fourth metatarsal bone, left foot, initial encounter for closed fracture; S92.352A Displaced fracture of fifth metatarsal bone, left foot, initial encounter for closed fracture
CPT/HCPCS: 36415; 71010; 80048; 80053; 80202; 81001; 82140; 82805; 85025; 85610; 87040; 87076; 87086; 87186; 93005; 93010; 93970; 94760; 96361; 96374; J0696; J1650; J2543; J3370; J7030; J7040; J7050

== ENCOUNTER 2017-03-11 10:09 | Inpatient (IN) | payer MEDICARE ==
--- NOTE | 2017-03-11 11:19 | Emergency Department Report ---
ED General Adult HPI - General Chief complaint: Extremity Injury, Lower Stated complaint: RIGHT LEG PAIN Time Seen by Provider: 03/11/17 11:13 Source: family Mode of arrival: Wheelchair Limitations: Language Barrier - History of Present Illness Initial comments: This is a patient with recent discharge from the hospital. He has been in his current jail and nonambulatory for the last 2 years. He has a grade 4 are otherwise unstageable peritrochanteric decubiti on the right. He has been seen by wound care. According to the jailhome care physical therapist she was directed to send the patient back to the hospital for evaluation and probable placement in a alf. He is a total care patient. I asked the jail snipper if case management was trying to place him in a alf. She seemed to be saying that that is the case but there may have been some problem with finding the power of senior trial attorney/family member. She was really unclear about why he hasn' t been placed in a alf yet. She states that he has not recently fallen. He is on anticoagulation. His right leg has become more swollen and somewhat ecchymotic since they have begun anticoagulation. The jail is requesting alf placement. The patient is nonverbal. The patient has technical difficulty with his Doppler study secondary to contraction. However they were read as positive for chronic DVT on the on the left and negative on the right which is the affected side. - Related Data Home Medications Medication Instructions Recorded Confirmed Last Taken Divalproex ER [Depakote ER] 500 mg PO HS 04/11/13 03/01/17 02/27/17 20:00 Docusate Sodium 100 mg PO BID 02/12/15 03/01/17 02/28/17 08:00 Ensure 1 dose PO BID 02/12/15 03/01/17 02/28/17 10:00 Multivitamins 1 tab PO DAILY 02/12/15 03/01/17 02/28/17 08:00 Ranitidine HCl 150 mg PO DAILY 02/12/15 03/01/17 02/27/17 19:00 RisperiDONE 1 mg PO DAILY 02/12/15 03/01/17 02/27/17 20:00 Ascorbic Acid [Vitamin C] 500 mg PO DAILY 09/27/15 03/01/17 02/28/17 08:00 Collagenase [Santyl] 1 applicatio TP QDAY 03/01/17 03/01/17 Unknown Multivitamin/Iron/Folic Acid 1 each PO DAILY 03/01/17 03/01/17 02/28/17 08:00 [Centrum Adults Tablet] Santyl 250 gm TP DAILY 03/01/17 03/01/17 Unknown Previous Rx's Medication Instructions Recorded Last Taken Type Enoxaparin [Lovenox] 60 mg SUB-Q Q12HR #14 syringe 03/08/17 Unknown Rx Warfarin [Coumadin] 5 mg PO DAILY@1700 #30 tablet 03/08/17 Unknown Rx Allergies Allergy/AdvReac Type Severity Reaction Status Date / Time No Known Allergies Allergy Verified 02/28/17 12:30 ED Review of Systems ROS: Stated complaint: RIGHT LEG PAIN Other details as noted in HPI Comment: Unobtainable due to pts medical conditions ED Past Medical Hx - Past Medical History Previous Medical History?: Yes Hx CVA: Yes (possibly history of strokes per caregiver) Hx Diabetes: No Hx Deep Vein Thrombosis: Yes Hx Pulmonary Embolism: Yes Hx Seizures: Yes Additional medical history: Cerebral palsy. mentally handicapped - Surgical History Past Surgical History?: Yes Additional Surgical History: right knee - Social History Smoking Status: Never Smoker Substance Use Type: None - Medications Home Medications: Home Medications Medication Instructions Recorded Confirmed Last Taken Type Divalproex ER [Depakote ER] 500 mg PO HS 04/11/13 03/01/17 02/27/17 20:00 History Docusate Sodium 100 mg PO BID 02/12/15 03/01/17 02/28/17 08:00 History Ensure 1 dose PO BID 02/12/15 03/01/17 02/28/17 10:00 History Multivitamins 1 tab PO DAILY 02/12/15 03/01/17 02/28/17 08:00 History Ranitidine HCl 150 mg PO DAILY 02/12/15 03/01/17 02/27/17 19:00 History RisperiDONE 1 mg PO DAILY 02/12/15 03/01/17 02/27/17 20:00 History Ascorbic Acid [Vitamin C] 500 mg PO DAILY 09/27/15 03/01/17 02/28/17 08:00 History Collagenase [Santyl] 1 applicatio TP QDAY 03/01/17 03/01/17 Unknown History Multivitamin/Iron/Folic Acid 1 each PO DAILY 03/01/17 03/01/17 02/28/17 08:00 History [Centrum Adults Tablet] Santyl 250 gm TP DAILY 03/01/17 03/01/17 Unknown History Enoxaparin [Lovenox] 60 mg SUB-Q Q12HR #14 syringe 03/08/17 Unknown Rx Warfarin [Coumadin] 5 mg PO DAILY@1700 #30 tablet 03/08/17 Unknown Rx ED Physical Exam - General Limitations: Language Barrier General appearance: alert - Head Head exam: Present: atraumatic - Eye Eye exam: Absent: scleral icterus - ENT ENT exam: Present: normal exam - Neck Neck exam: Absent: tenderness, meningismus - Respiratory Respiratory exam: Present: normal lung sounds bilaterally - Cardiovascular Cardiovascular Exam: Present: regular rate, normal rhythm - GI/Abdominal GI/Abdominal exam: Present: soft, normal bowel sounds. Absent: distended, tenderness, guarding, rebound, rigid - Extremities Exam Extremities exam: Present: other (both lower extremities are contracted. There is a deep stage IV peritrochanteric decubiti on the right. The upper and lower leg is swollen. The lower leg is more so but it is not tense and there is no sign of compartment. It is a bit ecchymotic. There is no gross bony deformity. ) - Back Exam Back exam: Present: other (there is some superficial erythema of the presacral area but I wouldn't call it a decubiti yet.) - Neurological Exam Neurological exam: Present: other (no acute focal deficit is suspected) - Psychiatric Psychiatric exam: Present: flat affect - Skin Skin exam: Present: other (the decubiti was measured by the nursing staff see her note.) ED Course Vital Signs 03/11/17 03/11/17 10:35 11:48 Temperature 98.7 F Pulse Rate 80 72 Respiratory 16 20 Rate Blood Pressure 99/56 Blood Pressure 119/62 [Left] O2 Sat by Pulse 100 99 Oximetry - Reevaluation(s) Reevaluation #1: Hospitalist Dr. Conley informed of the situation. The patient will be admitted for further evaluation. He is subtherapeutic on his INR. I'm not certain how aggressive the hospitalist will want to be with this considering a repeat Doppler today showed no acute finding on the right and no change on the left. 03/11/17 13:01 Reevaluation #2: Dr. Valladares notified of the bony abnormalities consult Dr. Solorzano 03/11/17 13:12 ED Medical Decision Making - Lab Data Result diagrams: 03/11/17 11:10 03/11/17 11:10 Laboratory Results - last 24 hr 03/11/17 03/11/17 03/11/17 11:10 11:10 11:10 WBC 5.9 RBC 3.53 L Hgb 10.6 L Hct 31.7 L MCV 90 MCH 30 MCHC 34 RDW 14.4 Plt Count 347 Lymph % (Auto) 25.9 [place] % (Auto) 11.2 H Eos % (Auto) 2.7 Baso % (Auto) 0.5 Lymph # 1.5 [place] # 0.7 Eos # 0.2 Baso # 0.0 Seg Neutrophils % 59.7 Seg Neutrophils # 3.5 PT 17.9 H INR 1.40 H APTT 49.8 H Sodium 139 Potassium 4.2 Chloride 103.0 Carbon Dioxide 24 Anion Gap 16 BUN 11 Creatinine 0.3 L Estimated GFR > 60 BUN/Creatinine Ratio 37 Glucose 100 Calcium 8.5 Total Bilirubin 0.20 Direct Bilirubin < 0.2 Indirect Bilirubin 0.0 AST 16 ALT 9 Alkaline Phosphatase 147 H Total Protein 7.4 Albumin 3.2 L Albumin/Globulin Ratio 0.8 - EKG Data EKG shows normal: sinus rhythm - EKG Data Interpretation: nonspecific ST-T wave paul (a lot of motion artifact) - Radiology Data interpreted by me: Patient has multiple films that are abnormal. I have suspicious of a proximal tibia/tibial plateau fracture. There is also a healed ankle fracture these are both on the right. 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 Chest x-ray no acute process pelvis I don't see any pelvic fracture Critical care attestation.: If time is entered above; I have spent that time in minutes in the direct care of this critically ill patient, excluding procedure time. ED Disposition Clinical Impression: Right leg swelling, Case management patient DVT (deep venous thrombosis) Qualifiers: DVT location: lower extremity Affected thrombotic vein of extremity: unspecified vein of extremity Chronicity: acute Laterality: left Qualified Code( s): I82.402 - Acute embolism and thrombosis of unspecified deep veins of left lower extremity Anemia Qualifiers: Anemia type: unspecified type Qualified Code(s): D64.9 - Anemia, unspecified Decubitus ulcer Qualifiers: Pressure ulcer location: hip Pressure ulcer stage: stage 4 Laterality: right Qualified Code(s): L89.214 - Pressure ulcer of right hip, stage 4 Tibial plateau fracture, right Qualifiers: Encounter type: initial encounter Fracture type: closed Qualified Code(s): S82.141A - Displaced bicondylar fracture of right tibia, initial encounter for closed fracture Disposition: OP ADMIT IP TO THIS HOSP Is pt being admited?: Yes Does the pt Need Aspirin: Yes Condition: Stable Referrals: PRIMARY CARE, [Primary Care Provider] - 3-5 Days Time of Disposition: 13:23
[2017-03-11 11:31] LABS: Basophils % (Auto) 0.5 % (0.0-1.8); Eosinophils % (Auto) 2.7 % (0.0-4.3); Hematocrit 31.7 % (35.5-45.6); Hemoglobin 10.6 gm/dl (11.8-15.2); Mean Corpuscular HGB Conc 34 % (32-34); Mean Corpuscular Hemoglobin 30 pg (28-32); Mean Corpuscular Volume 90 fl (84-94); Platelet Count 347 K/mm3 (140-440); Red Blood Count 3.53 M/mm3 (3.65-5.03); Red Cell Distribution Width 14.4 % (13.2-15.2); White Blood Count 5.9 K/mm3 (4.5-11.0)
[2017-03-11] MEDS ORDERED: NACL 0.9% 1000 ML 1,000 ML IV ONE (11:31)
[2017-03-11 11:43] LABS: INR 1.4 (0.87-1.13)
[2017-03-11 11:44] LABS: Partial Thromboplastin Time 49.8 Sec. (24.2-36.6)
[2017-03-11 11:53] LABS: Alanine Aminotransferase 9 units/L (7-56); Albumin 3.2 g/dL (3.9-5); Albumin/Globulin Ratio 0.8 %; Alkaline Phosphatase 147 units/L (35-129); Anion Gap 16 mmol/L; BUN/Creatinine Ratio 37; Blood Urea Nitrogen 11 mg/dL (9-20); Calcium 8.5 mg/dL (8.4-10.2); Carbon Dioxide 24 mmol/L (22-30); Glucose 100 mg/dL (75-100); Potassium 4.2 mmol/L (3.6-5.0); Sodium 139 mmol/L (137-145); Total Protein 7.4 g/dL (6.3-8.2)
[2017-03-11 12:31] LABS: Bilirubin,Direct < 0.2 mg/dL (0-0.2)
[2017-03-11 13:19] LABS: Bacteria,Urine 4+ /HPF (Negative); Bilirubin,Urine NEG (Negative); Blood,Urine NEG (Negative); Ketones,Urine NEG (Negative); Leukocyte Esterase,Urine LG (Negative); Mucus,Urine 3+ /HPF; Nitrite,Urine POS (Negative); Protein,Urine <15 mg/dL mg/dL (Negative); Urobilinogen,Urine < 2.0 mg/dL (<2.0)
[2017-03-11] MEDS ORDERED: BABY ASPIRIN PO ONE (13:31)
--- NOTE | 2017-03-11 15:11 | XRay Report ---
FINAL REPORT EXAM: XR TIBIA FIBULA 2V RT HISTORY: injury COMPARISONS: None. FINDINGS: AP and lateral views right tib fib Transverse impacted/minimally foreshortened proximal right tibia and fibula fractures are present. There is diffuse demineralization. Possible minimally displaced distal fibular fracture is also seen. Moderate osteoarthrosis in the ankle and knee. IMPRESSION: Transverse impacted/foreshortened fractures in the proximal right tibia and fibula. A minimally displaced distal fibular fracture may also be present.
--- NOTE | 2017-03-11 15:12 | XRay Report ---
FINAL REPORT EXAM: XR CHEST 1V AP HISTORY: injury TECHNIQUE: AP portable view(s) of the chest obtained. PRIORS: None. FINDINGS: The patient is rotated. No mediastinal shift. Cardiac silhouette is not enlarged. No pneumothorax, effusion, or focal pulmonary opacity identified. There is a proximal right humerus and/or scapular expansile and disorganized predominantly lytic lesion. IMPRESSION: No acute pulmonary finding identified. There is an expansile lytic lesion in the proximal right humerus and/or scapula. Dedicated radiographs of the right humerus are recommended for further evaluation.
--- NOTE | 2017-03-11 15:15 | XRay Report ---
FINAL REPORT EXAM: XR FEMUR 2+V RT HISTORY: injury/ patient body habitus in contracted best images possible 3 techs used for exam COMPARISONS: None. FINDINGS: Three AP portable views of the right femur Examination is compromised by portable technique and positioning. Diffuse demineralization. Moderate osteoarthrosis of the right hip with adjacent heterotopic calcification. Old distal right femur fracture deformity. No obvious acute fracture identified. IMPRESSION: No obvious acute fracture of the right femur. Sensitivity of fracture detection is decreased by demineralization and degenerative findings. If patient has persistent pain, consider MRI.
--- NOTE | 2017-03-11 15:17 | XRay Report ---
FINAL REPORT EXAM: XR PELVIS 1-2V HISTORY: injury/ body habitus contracted best images possible COMPARISONS: None. FINDINGS: Single AP view pelvis Diffuse demineralization. Moderate right greater than left hip osteoarthrosis. No displaced fracture identified. There is heterotopic ossification and in CTs of fight formation adjacent to the right greater than left hip. IMPRESSION: No displaced fracture in the pelvis identified. Sensitivity of fracture detection is decreased by demineralization and degenerative findings. If patient has persistent pain, consider MRI.
--- NOTE | 2017-03-11 19:26 | History and Physical Report ---
History of Present Illness Date of examination: 03/11/17 Date of admission: 03/11/17 12:14 Chief complaint: Swelling and redness of the right leg History of present illness: 67-year-old male with past medical history significant for cerebral palsy,seizure, CVA, bedbound, decubitus ulcer, multiple fractures, history of recent DVT was brought from detention for the complaints of he has redness and swelling of the right leg. Patient was discharged from this hospital after he was treated for DVT and cellulitis. He had multiple fractures in the legs and was evaluated by orthopedic surgeon and recommended no intervention to be done because the patient is immobile. No fever. Patient is noncommunicative at baseline. [facility] claimed they can't take care of him there and patient needs to be send to SNF at the time of discharge. Review of system couldn't be obtained because the patient is noncommunicative. Past History Past Medical History: DVT, seizures, stroke, other (cerbral palsy) Past Surgical History: Other (wound debridement) Social history: full code. denies: smoking, alcohol abuse, prescription drug abuse, IV drug use Family history: no significant family history Medications and Allergies Allergies Allergy/AdvReac Type Severity Reaction Status Date / Time No Known Allergies Allergy Verified 02/28/17 12:30 Home Medications Medication Instructions Recorded Confirmed Last Taken Type Divalproex ER [Depakote ER] 500 mg PO HS 04/11/13 03/01/17 02/27/17 20:00 History Docusate Sodium 100 mg PO BID 02/12/15 03/01/17 02/28/17 08:00 History Ensure 1 dose PO BID 02/12/15 03/01/17 02/28/17 10:00 History Multivitamins 1 tab PO DAILY 02/12/15 03/01/17 02/28/17 08:00 History Ranitidine HCl 150 mg PO DAILY 02/12/15 03/01/17 02/27/17 19:00 History RisperiDONE 1 mg PO DAILY 02/12/15 03/01/17 02/27/17 20:00 History Ascorbic Acid [Vitamin C] 500 mg PO DAILY 09/27/15 03/01/17 02/28/17 08:00 History Collagenase [Santyl] 1 applicatio TP QDAY 03/01/17 03/01/17 Unknown History Multivitamin/Iron/Folic Acid 1 each PO DAILY 03/01/17 03/01/17 02/28/17 08:00 History [Centrum Adults Tablet] Santyl 250 gm TP DAILY 03/01/17 03/01/17 Unknown History Enoxaparin [Lovenox] 60 mg SUB-Q Q12HR #14 syringe 03/08/17 Unknown Rx Warfarin [Coumadin] 5 mg PO DAILY@1700 #30 tablet 03/08/17 Unknown Rx Active Meds: Active Medications Ascorbic Acid (Vitamin C) 500 mg PO DAILY [facility] Collagenase (Santyl) 1 applic TP QDAY [facility] Divalproex Sodium (Depakote Er) 500 mg PO HS [facility] Docusate Sodium (Colace) 100 mg PO BID [facility] Enoxaparin Sodium (Lovenox) 60 mg SUB-Q Q12HR [facility] Famotidine (Pepcid) 20 mg PO BID [facility] Sodium Chloride (Nacl 0.9% 1000 Ml) 1,000 mls @ 125 mls/hr IV ONCE ONE Stop: 03/11/17 19:30 Last Admin: 03/11/17 13:52 Dose: Not Given Miscellaneous Medication (Ensure) 1 dose PO BID [facility] Multivitamins (Theragran Tab) 1 each PO DAILY [facility] Risperidone (Risperdal) 1 mg PO QDAY [facility] Warfarin Sodium (Coumadin) 5 mg PO DAILY@1700 [facility] PRN Reason: Protocol Review of Systems ROS unobtainable: due to mental status (Review of system couldn't be obtained because the patient is noncommunicative.) Exam - Physical Exam Narrative exam: Not in cardiopulmonary distress. The patient appeared well nourished and normally developed. Vital signs as documented. Head exam is unremarkable. No scleral icterus . Neck is without jugular venous distension, thyromegaly, or carotid bruits. Lungs are clear to auscultation. Cardiac exam reveals regular rate and Rhythm. First and second heart sounds normal. No murmurs, rubs or gallops. Abdominal exam reveals normal bowel sounds, no masses, no organomegaly and no aortic enlargement. Extremities are contracted. CARDIOVASCULAR RADIOLOGIC TECHNOLOGIST: No communicative. - Constitutional Vitals: Temp Pulse Resp BP Pulse Ox 98.7 F 72 20 119/62 99 03/11/17 10:35 03/11/17 11:48 03/11/17 11:48 03/11/17 11:48 03/11/17 11:48 Results - Labs CBC & Chem 7: 03/11/17 11:10 03/11/17 11:10 Labs: Laboratory Last Values WBC 5.9 K/mm3 (4.5-11.0) 03/11/17 11:10 RBC 3.53 M/mm3 (3.65-5.03) L 03/11/17 11:10 Hgb 10.6 gm/dl (11.8-15.2) L 03/11/17 11:10 Hct 31.7 % (35.5-45.6) L 03/11/17 11:10 MCV 90 fl (84-94) 03/11/17 11:10 MCH 30 pg (28-32) 03/11/17 11:10 MCHC 34 % (32-34) 03/11/17 11:10 RDW 14.4 % (13.2-15.2) 03/11/17 11:10 Plt Count 347 K/mm3 (140-440) 03/11/17 11:10 Lymph % (Auto) 25.9 % (13.4-35.0) 03/11/17 11:10 [place] % (Auto) 11.2 % (0.0-7.3) H 03/11/17 11:10 Eos % (Auto) 2.7 % (0.0-4.3) 03/11/17 11:10 Baso % (Auto) 0.5 % (0.0-1.8) 03/11/17 11:10 Lymph # 1.5 K/mm3 (1.2-5.4) 03/11/17 11:10 [place] # 0.7 K/mm3 (0.0-0.8) 03/11/17 11:10 Eos # 0.2 K/mm3 (0.0-0.4) 03/11/17 11:10 Baso # 0.0 K/mm3 (0.0-0.1) 03/11/17 11:10 Seg Neutrophils % 59.7 % (40.0-70.0) 03/11/17 11:10 Seg Neutrophils # 3.5 K/mm3 (1.8-7.7) 03/11/17 11:10 PT 17.9 Sec. (12.2-14.9) H 03/11/17 11:10 INR 1.40 (0.87-1.13) H 03/11/17 11:10 APTT 49.8 Sec. (24.2-36.6) H 03/11/17 11:10 Sodium 139 mmol/L (137-145) 03/11/17 11:10 Potassium 4.2 mmol/L (3.6-5.0) 03/11/17 11:10 Chloride 103.0 mmol/L (98-107) 03/11/17 11:10 Carbon Dioxide 24 mmol/L (22-30) 03/11/17 11:10 Anion Gap 16 mmol/L 03/11/17 11:10 BUN 11 mg/dL (9-20) 03/11/17 11:10 Creatinine 0.3 mg/dL (0.8-1.5) L 03/11/17 11:10 Estimated GFR > 60 ml/min 03/11/17 11:10 BUN/Creatinine Ratio 37 % 03/11/17 11:10 Glucose 100 mg/dL (75-100) 03/11/17 11:10 Calcium 8.5 mg/dL (8.4-10.2) 03/11/17 11:10 Total Bilirubin 0.20 mg/dL (0.1-1.2) 03/11/17 11:10 Direct Bilirubin < 0.2 mg/dL (0-0.2) 03/11/17 11:10 Indirect Bilirubin 0.0 mg/dL 03/11/17 11:10 AST 16 units/L (5-40) 03/11/17 11:10 ALT 9 units/L (7-56) 03/11/17 11:10 Alkaline Phosphatase 147 units/L (35-129) H 03/11/17 11:10 Total Protein 7.4 g/dL (6.3-8.2) 03/11/17 11:10 Albumin 3.2 g/dL (3.9-5) L 03/11/17 11:10 Albumin/Globulin Ratio 0.8 % 03/11/17 11:10 Urine Color Yellow (Yellow) 03/11/17 13:10 Urine Turbidity Cloudy (Clear) 03/11/17 13:10 Urine pH 6.0 (5.0-7.0) 03/11/17 13:10 Ur Specific [place] 1.016 (1.003-1.030) 03/11/17 13:10 Urine Protein <15 mg/dl mg/dL (Negative) 03/11/17 13:10 Urine Glucose (UA) Neg mg/dL (Negative) 03/11/17 13:10 Urine Ketones Neg mg/dL (Negative) 03/11/17 13:10 Urine Blood Neg (Negative) 03/11/17 13:10 Urine Nitrite Pos (Negative) 03/11/17 13:10 Urine Bilirubin Neg (Negative) 03/11/17 13:10 Urine Urobilinogen < 2.0 mg/dL (<2.0) 03/11/17 13:10 Ur Leukocyte Esterase Lg (Negative) 03/11/17 13:10 Urine WBC (Auto) 6.0 /HPF (0.0-6.0) 03/11/17 13:10 Urine RBC (Auto) 4.0 /HPF (0.0-6.0) 03/11/17 13:10 U Epithel Cells (Auto) 6.0 /HPF (0-13.0) 03/11/17 13:10 Urine Bacteria (Auto) 4+ /HPF (Negative) 03/11/17 13:10 Urine Mucus 3+ /HPF 03/11/17 13:10 - Imaging and Cardiology Imaging and Cardiology: X-ray of the right leg transverse tibiofibular fracture Assessment and Plan Assessment and plan: Right tibiofibular fracture History of DVT with subtherapeutic INR Seizure disorder History of stroke Immobility Decubitus ulcer - Restart home medications - Patient needs snf placement - Wound care consult DVT prophylaxis - Patient is on bridging Lovenox and warfarin, monitor INR Disposition - Admit to [facility] floor Advance Directives: Yes VTE prophylaxis?: Chemical Plan of care discussed with patient/family: Yes
[2017-03-11] MEDS ORDERED: NON-FORMULARY (Docusate Sodium 100 MG) PO SCH (22:00)
[2017-03-11] MEDS ORDERED: LOVENOX SUB-Q SCH (22:00)
[2017-03-11] MEDS ORDERED: ENSURE PO SCH (22:00)
[2017-03-12] MEDS: COLACE PO SCH ×3 (00:07→23:50)
[2017-03-12] MEDS: LOVENOX SUB-Q SCH ×4 (00:07→23:50)
--- NOTE | 2017-03-12 07:37 | Vascular Lab Report ---
Right Lower Extremity Venous Duplex Study: Reason for Exam: Pain and swelling of the right lower extremity. Comments on the Right: All veins visualized are freely compressible without evidence of internal echogenicity. Flow is spontaneous and phasic throughout. No evidence of acute or chronic thrombus is seen in any of the vessels visualized. Comments on the Left: Chronic nonocclusive clot in the common femoral vein. The remaining veins visualized are freely compressible without evidence of internal echogenicity. Spontaneous and phasic flow is doesn't proximally. 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
[2017-03-12] MEDS ORDERED: FOLIC ACID PO SCH (10:00)
[2017-03-12] MEDS ORDERED: NON-FORMULARY (Ranitidine Hcl 150 MG) PO SCH (10:00)
[2017-03-12] MEDS ORDERED: COLLAGENASE TP SCH (10:00)
[2017-03-12] MEDS ORDERED: IRON PO SCH (10:00)
[2017-03-12] MEDS ORDERED: RISPERIDONE 1 MG PO SCH (10:00)
[2017-03-12] MEDS ORDERED: MULTIVITAMIN PO SCH (10:00)
[2017-03-12] MEDS: THERAGRAN Tab PO SCH (10:05)
[2017-03-12] MEDS: RisperDAL PO SCH (10:15)
[2017-03-12] MEDS: VITAMIN C PO SCH (10:15)
[2017-03-12] MEDS: PEPCID PO SCH ×2 (10:30→23:50)
[2017-03-12] MEDS: SANTYL TP SCH (10:30)
--- NOTE | 2017-03-12 11:08 | Progress Note ---
<LINCOLN CHILDRESS - Last Filed: 03/12/17 12:28> Assessment and Plan Assessment and plan: 67-year-old male with past medical history significant for cerebral palsy,seizure, CVA, bedbound, decubitus ulcer, multiple fractures, history of recent DVT was brought from [facility] for the complaints of he has redness and swelling of the right leg. Patient was discharged from this hospital after he was treated for DVT and cellulitis. Right tibiofibular fracture Xray of the Tibia Fibula showed fractured Right proximal tibia and fibula Patient had hx multiple fractures in the legs and was evaluated by orthopedic surgeon and recommended no intervention to be done due to patient is immobile. Orthopedic following Seizure disorder Resume home on anticonvulsant medications Decubitus ulcer Patient is immobile, has stage ulcer Wound care consult History of DVT Patient on bridging Lovenox and warfarin, closely monitor INR Going to schedule History of stroke Continue current therapy Malnutrition Nutritional consulted Patient needs SNF placement and discuss with case management regarding placement DVT prophylaxis Patient is on bridging Lovenox and warfarin, monitor INR History Interval history: Patient has cerebral palsy, his nonverbal. No sign and symptoms of discomfort. Labs and nursing notes are reviewed. Hospitalist Physical - Constitutional Vitals: Temp Pulse Resp BP Pulse Ox 99.3 F 67 20 106/47 95 03/12/17 07:33 03/12/17 07:33 03/12/17 07:33 03/12/17 07:33 03/12/17 07:33 General appearance: Present: no acute distress, other (Cerebral Palsy nonverbal) - EENT Eyes: Present: PERRL ENT: hearing intact - Neck Neck: Present: supple - Respiratory Respiratory effort: normal Respiratory: bilateral: CTA - Cardiovascular Rhythm: regular Heart Sounds: Present: S1 & S2 - Extremities Extremity abnormal: other (contracture) - Abdominal General gastrointestinal: soft, non-tender - Integumentary Integumentary: Present: clear (Decubitus ulcer), warm, dry - Psychiatric Psychiatric: other (impaired judgment ) - Neurologic Neurologic: other (contracture) - Allied Health Allied health notes reviewed: nursing Results - Labs CBC & Chem 7: 03/11/17 11:10 03/11/17 11:10 Labs: Laboratory Last Values WBC 5.9 K/mm3 (4.5-11.0) 03/11/17 11:10 RBC 3.53 M/mm3 (3.65-5.03) L 03/11/17 11:10 Hgb 10.6 gm/dl (11.8-15.2) L 03/11/17 11:10 Hct 31.7 % (35.5-45.6) L 03/11/17 11:10 MCV 90 fl (84-94) 03/11/17 11:10 MCH 30 pg (28-32) 03/11/17 11:10 MCHC 34 % (32-34) 03/11/17 11:10 RDW 14.4 % (13.2-15.2) 03/11/17 11:10 Plt Count 347 K/mm3 (140-440) 03/11/17 11:10 Lymph % (Auto) 25.9 % (13.4-35.0) 03/11/17 11:10 Grand % (Auto) 11.2 % (0.0-7.3) H 03/11/17 11:10 Eos % (Auto) 2.7 % (0.0-4.3) 03/11/17 11:10 Baso % (Auto) 0.5 % (0.0-1.8) 03/11/17 11:10 Lymph # 1.5 K/mm3 (1.2-5.4) 03/11/17 11:10 Grand # 0.7 K/mm3 (0.0-0.8) 03/11/17 11:10 Eos # 0.2 K/mm3 (0.0-0.4) 03/11/17 11:10 Baso # 0.0 K/mm3 (0.0-0.1) 03/11/17 11:10 Seg Neutrophils % 59.7 % (40.0-70.0) 03/11/17 11:10 Seg Neutrophils # 3.5 K/mm3 (1.8-7.7) 03/11/17 11:10 PT 17.9 Sec. (12.2-14.9) H 03/11/17 11:10 INR 1.40 (0.87-1.13) H 03/11/17 11:10 APTT 49.8 Sec. (24.2-36.6) H 03/11/17 11:10 Sodium 139 mmol/L (137-145) 03/11/17 11:10 Potassium 4.2 mmol/L (3.6-5.0) 03/11/17 11:10 Chloride 103.0 mmol/L (98-107) 03/11/17 11:10 Carbon Dioxide 24 mmol/L (22-30) 03/11/17 11:10 Anion Gap 16 mmol/L 03/11/17 11:10 BUN 11 mg/dL (9-20) 03/11/17 11:10 Creatinine 0.3 mg/dL (0.8-1.5) L 03/11/17 11:10 Estimated GFR > 60 ml/min 03/11/17 11:10 BUN/Creatinine Ratio 37 % 03/11/17 11:10 Glucose 100 mg/dL (75-100) 03/11/17 11:10 Calcium 8.5 mg/dL (8.4-10.2) 03/11/17 11:10 Total Bilirubin 0.20 mg/dL (0.1-1.2) 03/11/17 11:10 Direct Bilirubin < 0.2 mg/dL (0-0.2) 03/11/17 11:10 Indirect Bilirubin 0.0 mg/dL 03/11/17 11:10 AST 16 units/L (5-40) 03/11/17 11:10 ALT 9 units/L (7-56) 03/11/17 11:10 Alkaline Phosphatase 147 units/L (35-129) H 03/11/17 11:10 Total Protein 7.4 g/dL (6.3-8.2) 03/11/17 11:10 Albumin 3.2 g/dL (3.9-5) L 03/11/17 11:10 Albumin/Globulin Ratio 0.8 % 03/11/17 11:10 Urine Color Yellow (Yellow) 03/11/17 13:10 Urine Turbidity Cloudy (Clear) 03/11/17 13:10 Urine pH 6.0 (5.0-7.0) 03/11/17 13:10 Ur Specific [place] 1.016 (1.003-1.030) 03/11/17 13:10 Urine Protein <15 mg/dl mg/dL (Negative) 03/11/17 13:10 Urine Glucose (UA) Neg mg/dL (Negative) 03/11/17 13:10 Urine Ketones Neg mg/dL (Negative) 03/11/17 13:10 Urine Blood Neg (Negative) 03/11/17 13:10 Urine Nitrite Pos (Negative) 03/11/17 13:10 Urine Bilirubin Neg (Negative) 03/11/17 13:10 Urine Urobilinogen < 2.0 mg/dL (<2.0) 03/11/17 13:10 Ur Leukocyte Esterase Lg (Negative) 03/11/17 13:10 Urine WBC (Auto) 6.0 /HPF (0.0-6.0) 03/11/17 13:10 Urine RBC (Auto) 4.0 /HPF (0.0-6.0) 03/11/17 13:10 U Epithel Cells (Auto) 6.0 /HPF (0-13.0) 03/11/17 13:10 Urine Bacteria (Auto) 4+ /HPF (Negative) 03/11/17 13:10 Urine Mucus 3+ /HPF 03/11/17 13:10 <BRYAN ALMONTE M - Last Filed: 04/11/17 19:48> Hospitalist Physical - Constitutional Vitals: Temp Pulse Resp BP Pulse Ox 97.3 F L 70 18 111/70 95 03/13/17 19:39 03/13/17 19:39 03/13/17 19:39 03/13/17 19:39 03/13/17 19:39 Results - Labs CBC & Chem 7: 03/11/17 11:10 03/11/17 11:10 Labs: Laboratory Last Values WBC 5.9 K/mm3 (4.5-11.0) 03/11/17 11:10 RBC 3.53 M/mm3 (3.65-5.03) L 03/11/17 11:10 Hgb 10.6 gm/dl (11.8-15.2) L 03/11/17 11:10 Hct 31.7 % (35.5-45.6) L 03/11/17 11:10 MCV 90 fl (84-94) 03/11/17 11:10 MCH 30 pg (28-32) 03/11/17 11:10 MCHC 34 % (32-34) 03/11/17 11:10 RDW 14.4 % (13.2-15.2) 03/11/17 11:10 Plt Count 347 K/mm3 (140-440) 03/11/17 11:10 Lymph % (Auto) 25.9 % (13.4-35.0) 03/11/17 11:10 Grand % (Auto) 11.2 % (0.0-7.3) H 03/11/17 11:10 Eos % (Auto) 2.7 % (0.0-4.3) 03/11/17 11:10 Baso % (Auto) 0.5 % (0.0-1.8) 03/11/17 11:10 Lymph # 1.5 K/mm3 (1.2-5.4) 03/11/17 11:10 Grand # 0.7 K/mm3 (0.0-0.8) 03/11/17 11:10 Eos # 0.2 K/mm3 (0.0-0.4) 03/11/17 11:10 Baso # 0.0 K/mm3 (0.0-0.1) 03/11/17 11:10 Seg Neutrophils % 59.7 % (40.0-70.0) 03/11/17 11:10 Seg Neutrophils # 3.5 K/mm3 (1.8-7.7) 03/11/17 11:10 PT 20.0 Sec. (12.2-14.9) H 03/13/17 04:06 INR 1.60 (0.87-1.13) H 03/13/17 04:06 APTT 49.8 Sec. (24.2-36.6) H 03/11/17 11:10 Sodium 139 mmol/L (137-145) 03/11/17 11:10 Potassium 4.2 mmol/L (3.6-5.0) 03/11/17 11:10 Chloride 103.0 mmol/L (98-107) 03/11/17 11:10 Carbon Dioxide 24 mmol/L (22-30) 03/11/17 11:10 Anion Gap 16 mmol/L 03/11/17 11:10 BUN 11 mg/dL (9-20) 03/11/17 11:10 Creatinine 0.3 mg/dL (0.8-1.5) L 03/11/17 11:10 Estimated GFR > 60 ml/min 03/11/17 11:10 BUN/Creatinine Ratio 37 % 03/11/17 11:10 Glucose 100 mg/dL (75-100) 03/11/17 11:10 Calcium 8.5 mg/dL (8.4-10.2) 03/11/17 11:10 Total Bilirubin 0.20 mg/dL (0.1-1.2) 03/11/17 11:10 Direct Bilirubin < 0.2 mg/dL (0-0.2) 03/11/17 11:10 Indirect Bilirubin 0.0 mg/dL 03/11/17 11:10 AST 16 units/L (5-40) 03/11/17 11:10 ALT 9 units/L (7-56) 03/11/17 11:10 Alkaline Phosphatase 147 units/L (35-129) H 03/11/17 11:10 Total Protein 7.4 g/dL (6.3-8.2) 03/11/17 11:10 Albumin 3.2 g/dL (3.9-5) L 03/11/17 11:10 Albumin/Globulin Ratio 0.8 % 03/11/17 11:10 Urine Color Yellow (Yellow) 03/11/17 13:10 Urine Turbidity Cloudy (Clear) 03/11/17 13:10 Urine pH 6.0 (5.0-7.0) 03/11/17 13:10 Ur Specific [place] 1.016 (1.003-1.030) 03/11/17 13:10 Urine Protein <15 mg/dl mg/dL (Negative) 03/11/17 13:10 Urine Glucose (UA) Neg mg/dL (Negative) 03/11/17 13:10 Urine Ketones Neg mg/dL (Negative) 03/11/17 13:10 Urine Blood Neg (Negative) 03/11/17 13:10 Urine Nitrite Pos (Negative) 03/11/17 13:10 Urine Bilirubin Neg (Negative) 03/11/17 13:10 Urine Urobilinogen < 2.0 mg/dL (<2.0) 03/11/17 13:10 Ur Leukocyte Esterase Lg (Negative) 03/11/17 13:10 Urine WBC (Auto) 6.0 /HPF (0.0-6.0) 03/11/17 13:10 Urine RBC (Auto) 4.0 /HPF (0.0-6.0) 03/11/17 13:10 U Epithel Cells (Auto) 6.0 /HPF (0-13.0) 03/11/17 13:10 Urine Bacteria (Auto) 4+ /HPF (Negative) 03/11/17 13:10 Urine Mucus 3+ /HPF 03/11/17 13:10
[2017-03-12] MEDS: COUMADIN PO SCH (17:20)
[2017-03-13 05:23] LABS: INR 1.6 (0.87-1.13)
--- NOTE | 2017-03-13 08:19 | Progress Note ---
Hospitalist Physical - Constitutional Vitals: Temp Pulse Resp BP Pulse Ox 99.4 F 56 L 18 97/50 97 03/13/17 04:53 03/13/17 04:53 03/13/17 04:53 03/13/17 04:53 03/13/17 04:53 General appearance: Present: no acute distress, other (Cerebral Palsy nonverbal) Results - Labs CBC & Chem 7: 03/11/17 11:10 03/11/17 11:10 Labs: Laboratory Last Values WBC 5.9 K/mm3 (4.5-11.0) 03/11/17 11:10 RBC 3.53 M/mm3 (3.65-5.03) L 03/11/17 11:10 Hgb 10.6 gm/dl (11.8-15.2) L 03/11/17 11:10 Hct 31.7 % (35.5-45.6) L 03/11/17 11:10 MCV 90 fl (84-94) 03/11/17 11:10 MCH 30 pg (28-32) 03/11/17 11:10 MCHC 34 % (32-34) 03/11/17 11:10 RDW 14.4 % (13.2-15.2) 03/11/17 11:10 Plt Count 347 K/mm3 (140-440) 03/11/17 11:10 Lymph % (Auto) 25.9 % (13.4-35.0) 03/11/17 11:10 [place] % (Auto) 11.2 % (0.0-7.3) H 03/11/17 11:10 Eos % (Auto) 2.7 % (0.0-4.3) 03/11/17 11:10 Baso % (Auto) 0.5 % (0.0-1.8) 03/11/17 11:10 Lymph # 1.5 K/mm3 (1.2-5.4) 03/11/17 11:10 [place] # 0.7 K/mm3 (0.0-0.8) 03/11/17 11:10 Eos # 0.2 K/mm3 (0.0-0.4) 03/11/17 11:10 Baso # 0.0 K/mm3 (0.0-0.1) 03/11/17 11:10 Seg Neutrophils % 59.7 % (40.0-70.0) 03/11/17 11:10 Seg Neutrophils # 3.5 K/mm3 (1.8-7.7) 03/11/17 11:10 PT 20.0 Sec. (12.2-14.9) H 03/13/17 04:06 INR 1.60 (0.87-1.13) H 03/13/17 04:06 APTT 49.8 Sec. (24.2-36.6) H 03/11/17 11:10 Sodium 139 mmol/L (137-145) 03/11/17 11:10 Potassium 4.2 mmol/L (3.6-5.0) 03/11/17 11:10 Chloride 103.0 mmol/L (98-107) 03/11/17 11:10 Carbon Dioxide 24 mmol/L (22-30) 03/11/17 11:10 Anion Gap 16 mmol/L 03/11/17 11:10 BUN 11 mg/dL (9-20) 03/11/17 11:10 Creatinine 0.3 mg/dL (0.8-1.5) L 03/11/17 11:10 Estimated GFR > 60 ml/min 03/11/17 11:10 BUN/Creatinine Ratio 37 % 03/11/17 11:10 Glucose 100 mg/dL (75-100) 03/11/17 11:10 Calcium 8.5 mg/dL (8.4-10.2) 03/11/17 11:10 Total Bilirubin 0.20 mg/dL (0.1-1.2) 03/11/17 11:10 Direct Bilirubin < 0.2 mg/dL (0-0.2) 03/11/17 11:10 Indirect Bilirubin 0.0 mg/dL 03/11/17 11:10 AST 16 units/L (5-40) 03/11/17 11:10 ALT 9 units/L (7-56) 03/11/17 11:10 Alkaline Phosphatase 147 units/L (35-129) H 03/11/17 11:10 Total Protein 7.4 g/dL (6.3-8.2) 03/11/17 11:10 Albumin 3.2 g/dL (3.9-5) L 03/11/17 11:10 Albumin/Globulin Ratio 0.8 % 03/11/17 11:10 Urine Color Yellow (Yellow) 03/11/17 13:10 Urine Turbidity Cloudy (Clear) 03/11/17 13:10 Urine pH 6.0 (5.0-7.0) 03/11/17 13:10 Ur Specific [place] 1.016 (1.003-1.030) 03/11/17 13:10 Urine Protein <15 mg/dl mg/dL (Negative) 03/11/17 13:10 Urine Glucose (UA) Neg mg/dL (Negative) 03/11/17 13:10 Urine Ketones Neg mg/dL (Negative) 03/11/17 13:10 Urine Blood Neg (Negative) 03/11/17 13:10 Urine Nitrite Pos (Negative) 03/11/17 13:10 Urine Bilirubin Neg (Negative) 03/11/17 13:10 Urine Urobilinogen < 2.0 mg/dL (<2.0) 03/11/17 13:10 Ur Leukocyte Esterase Lg (Negative) 03/11/17 13:10 Urine WBC (Auto) 6.0 /HPF (0.0-6.0) 03/11/17 13:10 Urine RBC (Auto) 4.0 /HPF (0.0-6.0) 03/11/17 13:10 U Epithel Cells (Auto) 6.0 /HPF (0-13.0) 03/11/17 13:10 Urine Bacteria (Auto) 4+ /HPF (Negative) 03/11/17 13:10 Urine Mucus 3+ /HPF 03/11/17 13:10
[2017-03-13] MEDS: COLACE PO SCH ×2 (10:44→21:04)
[2017-03-13] MEDS: THERAGRAN Tab PO SCH (10:45)
[2017-03-13] MEDS: PEPCID PO SCH ×2 (10:45→21:04)
[2017-03-13] MEDS: RisperDAL PO SCH (10:45)
[2017-03-13] MEDS: SANTYL TP SCH (10:46)
[2017-03-13] MEDS: VITAMIN C PO SCH (10:53)
[2017-03-13] MEDS: LOVENOX SUB-Q SCH ×2 (12:30→21:04)
--- NOTE | 2017-03-13 13:38 | Discharge Summary ---
<LINCOLN CHILDRESS - Last Filed: 03/13/17 14:04> Providers - Providers Date of Admission: 03/11/17 12:14 Date of discharge: 03/13/17 Attending physician: BRYAN ALMONTE MD 03/11/17 13:07 Consult to Physician [CONS] Urgent Consulting Provider: CORTNEY DING Reason For Exam: multiple possible fx acute v chronic Notified:: no 03/11/17 13:52 Consult to Wound/ET Nurse [CONS] Stat Reason For Exam: wound eval 03/12/17 12:04 Consult to Dietitian/Nutrition [CONS] Routine Physician Instructions: Reason For Exam: Reason for Consult: Malnutrition Primary care physician: BORE MINER OPERATOR Hospitalization Condition: Good Hospital course: Patient is a 67-year-old male with past medical history significant for cerebral palsy,seizure, CVA, bedbound, decubitus ulcer, multiple fractures, history of recent DVT was brought from [facility] for the complaints of he has redness and swelling of the right leg. Patient was discharged from this hospital after he was treated for DVT and cellulitis. Patient was diagnosed with Right tibiofibular fracture, Seizure disorder, Decubitus ulcer, Malnutrition and DVT. Xray of the Tibia/Fibula showed fractured Right proximal tibia and fibula fracture; was evaluated by orthopedic surgeon and recommended no intervention to be done at this time due to patient is immobile. He was treated with blood thinners for DVT. He is being discharged on warfarin. Patient was advised to follow up INR level with his primary care. Patient clinically improved and discharge to SNF. Discharge Diagnosed Right tibiofibular fracture Seizure disorder Decubitus ulcer History of DVT History of stroke Malnutrition Disposition: DC/TX-03 SNF [facility] CERT Time spent for discharge: 33 minutes Core Measure Documentation - Palliative Care Palliative Care/ Comfort Measures: Not Applicable - Core Measures Any of the following diagnoses?: none Exam - Constitutional Vitals: Temp Pulse Resp BP Pulse Ox 97.7 F 92 H 18 116/71 88 03/13/17 07:51 03/13/17 07:51 03/13/17 07:51 03/13/17 07:51 03/13/17 07:51 General appearance: Present: no acute distress - EENT Eyes: Present: PERRL ENT: hearing intact - Neck Neck: Present: supple - Respiratory Respiratory effort: normal Respiratory: bilateral: CTA - Cardiovascular Rhythm: regular Heart Sounds: Present: S1 & S2 - Abdominal General gastrointestinal: Present: soft, non-tender Male genitourinary: Present: deferred - Rectal Rectal Exam: deferred - Integumentary Integumentary: Present: clear, warm, dry - Musculoskeletal Musculoskeletal: strength equal bilaterally - Psychiatric Psychiatric: appropriate mood/affect - Neurologic Neurologic: moves all extremities - Allied Health Allied health notes reviewed: nursing Plan Diet: low fat, low cholesterol, low salt Additional Instructions: CK INR level within 2 or 3 days of discharge. Follow up with: PRIMARY CARE, [Primary Care Provider] - 3-5 Days Forms: Accompanied Note, Warfarin Discharge Instruction Prescriptions: Warfarin [Coumadin] 5 mg PO DAILY@1700 30 Days tablet <BRYAN ALMONTE - Last Filed: 04/11/17 19:48> Providers - Providers Date of Admission: 03/11/17 12:14 Attending physician: BRYAN ALMONTE MD 03/11/17 13:07 Consult to Physician [CONS] Urgent Consulting Provider: CORTNEY DING Reason For Exam: multiple possible fx acute v chronic Notified:: no 03/11/17 13:52 Consult to Wound/ET Nurse [CONS] Stat Reason For Exam: wound eval 03/12/17 12:04 Consult to Dietitian/Nutrition [CONS] Routine Physician Instructions: Reason For Exam: Reason for Consult: Malnutrition Primary care physician: BORE MINER OPERATOR Exam - Constitutional Vitals: Temp Pulse Resp BP Pulse Ox 97.3 F L 70 18 111/70 95 03/13/17 19:39 03/13/17 19:39 03/13/17 19:39 03/13/17 19:39 03/13/17 19:39
[2017-03-13] MEDS: COUMADIN PO SCH (16:44)
[2017-03-13 20:18] VITALS: BP 111/70
== END 2017-03-13 21:05 | DRG 562 ==
LOC: ED 10:09 → 2B-ACE 12:14
PROVIDERS: ADMIT Internal Medicine; ATTEND Internal Medicine
DX: S82.201A Unspecified fracture of shaft of right tibia, initial encounter for closed fracture (principal); L89.214 Pressure ulcer of right hip, stage 4; R53.2 Functional quadriplegia; E46 Unspecified protein-calorie malnutrition; Z68.1 Body mass index [BMI] 19.9 or less, adult; S82.401A Unspecified fracture of shaft of right fibula, initial encounter for closed fracture; Z71.89 Other specified counseling; Z86.73 Personal history of transient ischemic attack (TIA), and cerebral infarction without residual deficits; D64.9 Anemia, unspecified; Z86.711 Personal history of pulmonary embolism; Z74.01 Bed confinement status; G40.909 Epilepsy, unspecified, not intractable, without status epilepticus; Z86.718 Personal history of other venous thrombosis and embolism
CPT/HCPCS: 36415; 71010; 72170; 80048; 80074; 81001; 85025; 85610; 85730; 93005; 93010; 99285; J1650; J7030

== ENCOUNTER 2018-03-21 09:30 | Outpatient (CLI) | payer MEDICARE ==
--- NOTE | 2018-03-21 10:56 | Fluoroscopy Report ---
MODIFIED BARIUM SWALLOW History: dysphagia. Findings: Video radiography was provided by the radiologist for speech therapy to assess the swallowing mechanism. 1 fluoroscopic image was captured. Impression: Successful modified barium swallow.
== END 2018-03-21 09:31 | disposition home or self-care (01) ==
LOC: PT 09:30
PROVIDERS: ATTEND Internal Medicine Gastroenterology
DX: R13.10 Dysphagia, unspecified (principal)
CPT/HCPCS: 74230; 92611; G8996; G8997; G8998

== ENCOUNTER 2018-04-09 09:28 | Inpatient (IN) | payer MEDICARE ==
[2018-04-09] MEDS ORDERED: NACL 0.9% 500 ML 500 ML IV ONE (09:33)
[2018-04-09] MEDS ORDERED: TYLENOL PR ONE (10:06)
[2018-04-09 10:07] LABS: Basophils # (Auto) 0.1 K/mm3 (0.0-0.1); Basophils % (Auto) 0.6 % (0.0-1.8); Eosinophils % (Auto) 0.1 % (0.0-4.3); Hematocrit 53.4 % (35.5-45.6); Hemoglobin 16.9 gm/dl (11.8-15.2); Lymphocytes # (Auto) 2.6 K/mm3 (1.2-5.4); Lymphocytes % (Auto) 29.1 % (13.4-35.0); Mean Corpuscular HGB Conc 32 % (32-34); Mean Corpuscular Volume 97 fl (84-94); Monocytes % (Auto) 11.8 % (0.0-7.3); Platelet Count 156 K/mm3 (140-440); Red Blood Count 5.49 M/mm3 (3.65-5.03); Red Cell Distribution Width 15.4 % (13.2-15.2)
--- NOTE | 2018-04-09 10:08 | Emergency Department Report ---
ED General Adult HPI - General Chief complaint: Fever Stated complaint: SEPSIS Time Seen by Provider: 04/09/18 10:01 Source: patient, EMS Mode of arrival: Stretcher Limitations: Other - History of Present Illness Initial comments: patient is a 68-year-old male past medical history of cerebral palsy and multiple medical problems History Limited due to patient's condition patient is a resident from [facility] with low blood pressure and fever. He is DO NOT RESUSCITATE. - Related Data Home Medications Medication Instructions Recorded Confirmed Last Taken Divalproex ER [Depakote ER] 500 mg PO HS 04/11/13 03/01/17 02/27/17 20:00 Docusate Sodium 100 mg PO BID 02/12/15 03/01/17 02/28/17 08:00 Ensure 1 dose PO BID 02/12/15 03/01/17 02/28/17 10:00 Multivitamins 1 tab PO DAILY 02/12/15 03/01/17 02/28/17 08:00 Ranitidine HCl 150 mg PO DAILY 02/12/15 03/01/17 02/27/17 19:00 RisperiDONE 1 mg PO DAILY 02/12/15 03/01/17 02/27/17 20:00 Ascorbic Acid [Vitamin C] 500 mg PO DAILY 09/27/15 03/01/17 02/28/17 08:00 Collagenase (Nf) [Santyl (Nf)] 1 applicatio TP QDAY 03/01/17 03/01/17 Unknown Multivitamin/Iron/Folic Acid 1 each PO DAILY 03/01/17 03/01/17 02/28/17 08:00 [Centrum Adults Tablet] Santyl 250 gm TP DAILY 03/01/17 03/01/17 Unknown Previous Rx's Medication Instructions Recorded Last Taken Type Warfarin [Coumadin] 5 mg PO DAILY@1700 #30 tablet 03/08/17 Unknown Rx Divalproex Sprinkle [Depakote 250 mg PO BID capsule 03/13/17 Unknown Rx Sprinkle] Docusate Sodium [Colace CAP] 100 mg PO BID capsule 03/13/17 Unknown Rx Multivitamin Tab [Multiple Vitamin 1 each PO DAILY tablet 03/13/17 Unknown Rx TAB (Theragran)] Warfarin [Coumadin] 5 mg PO DAILY@1700 30 Days tablet 03/13/17 Unknown Rx risperiDONE [RisperDAL] 1 mg PO QDAY tablet 03/13/17 Unknown Rx Allergies Allergy/AdvReac Type Severity Reaction Status Date / Time No Known Allergies Allergy Verified 02/28/17 12:30 ED Review of Systems ROS: Stated complaint: SEPSIS Other details as noted in HPI Comment: Unobtainable due to pts medical conditions ED Past Medical Hx - Past Medical History Previous Medical History?: Yes Hx CVA: Yes Hx Diabetes: No Hx Deep Vein Thrombosis: Yes Hx Pulmonary Embolism: Yes Hx Renal Disease: No Hx Arthritis: No Hx Seizures: Yes Hx Asthma: No Hx HIV: No Additional medical history: Cerebral palsy. mentally handicapped - Surgical History Hx Pacemaker: No Additional Surgical History: right knee - Social History Smoking Status: Unknown if ever smoked Substance Use Type: None - Medications Home Medications: Home Medications Medication Instructions Recorded Confirmed Last Taken Type Divalproex ER [Depakote ER] 500 mg PO HS 04/11/13 03/01/17 02/27/17 20:00 History Docusate Sodium 100 mg PO BID 02/12/15 03/01/17 02/28/17 08:00 History Ensure 1 dose PO BID 02/12/15 03/01/17 02/28/17 10:00 History Multivitamins 1 tab PO DAILY 02/12/15 03/01/17 02/28/17 08:00 History Ranitidine HCl 150 mg PO DAILY 02/12/15 03/01/17 02/27/17 19:00 History RisperiDONE 1 mg PO DAILY 02/12/15 03/01/17 02/27/17 20:00 History Ascorbic Acid [Vitamin C] 500 mg PO DAILY 09/27/15 03/01/17 02/28/17 08:00 History Collagenase (Nf) [Santyl (Nf)] 1 applicatio TP QDAY 03/01/17 03/01/17 Unknown History Multivitamin/Iron/Folic Acid 1 each PO DAILY 03/01/17 03/01/17 02/28/17 08:00 History [Centrum Adults Tablet] Santyl 250 gm TP DAILY 03/01/17 03/01/17 Unknown History Warfarin [Coumadin] 5 mg PO DAILY@1700 #30 tablet 03/08/17 Unknown Rx Divalproex Sprinkle [Depakote 250 mg PO BID capsule 03/13/17 Unknown Rx Sprinkle] Docusate Sodium [Colace CAP] 100 mg PO BID capsule 03/13/17 Unknown Rx Multivitamin Tab [Multiple Vitamin 1 each PO DAILY tablet 03/13/17 Unknown Rx TAB (Theragran)] Warfarin [Coumadin] 5 mg PO DAILY@1700 30 Days tablet 03/13/17 Unknown Rx risperiDONE [RisperDAL] 1 mg PO QDAY tablet 03/13/17 Unknown Rx ED Physical Exam - General Limitations: Other General appearance: alert - Head Head exam: Present: atraumatic - Eye Eye exam: Present: normal appearance - ENT ENT exam: Present: mucous membranes moist - Neck Neck exam: Present: other (cerbral palsy contracture ) - Respiratory Respiratory exam: Present: normal lung sounds bilaterally. Absent: respiratory distress - Cardiovascular Cardiovascular Exam: Present: regular rate, normal rhythm. Absent: systolic murmur, diastolic murmur, rubs, gallop - GI/Abdominal GI/Abdominal exam: Present: soft, normal bowel sounds - Rectal Rectal exam: Present: deferred - Extremities Exam Extremities exam: Present: other (contractures) - Back Exam Back exam: Present: normal inspection - Neurological Exam Neurological exam: Present: other (intellectual deficiency) - Skin Skin exam: Present: warm, dry, intact, normal color. Absent: rash ED Course Vital Signs 04/09/18 04/09/18 04/09/18 10:27 10:30 11:00 Temperature 103.6 F H Pulse Rate 109 H 105 H Respiratory 16 23 Rate Blood Pressure 90/66 89/65 O2 Sat by Pulse 95 96 Oximetry 04/09/18 04/09/18 04/09/18 11:30 12:00 12:30 Temperature Pulse Rate 102 H 89 88 Respiratory 24 21 22 Rate Blood Pressure 92/62 83/57 90/62 O2 Sat by Pulse 93 97 94 Oximetry 04/09/18 13:00 Temperature Pulse Rate 80 Respiratory 18 Rate Blood Pressure 89/59 O2 Sat by Pulse Oximetry ED Medical Decision Making - Lab Data Result diagrams: 04/09/18 09:40 04/09/18 09:40 Lab Results 04/09/18 04/09/18 04/09/18 Range/Units 09:40 09:40 09:40 WBC 8.8 (4.5-11.0) K/mm3 RBC 5.49 H (3.65-5.03) M/mm3 Hgb 16.9 H (11.8-15.2) gm/dl Hct 53.4 H (35.5-45.6) % MCV 97 H (84-94) fl MCH 31 (28-32) pg MCHC 32 (32-34) % RDW 15.4 H (13.2-15.2) % Plt Count 156 (140-440) K/mm3 Lymph % (Auto) 29.1 (13.4-35.0) % [place] % (Auto) 11.8 H (0.0-7.3) % Eos % (Auto) 0.1 (0.0-4.3) % Baso % (Auto) 0.6 (0.0-1.8) % Lymph # 2.6 (1.2-5.4) K/mm3 [place] # 1.0 H (0.0-0.8) K/mm3 Eos # 0.0 (0.0-0.4) K/mm3 Baso # 0.1 (0.0-0.1) K/mm3 Seg Neutrophils % 58.4 (40.0-70.0) % Seg Neutrophils # 5.1 (1.8-7.7) K/mm3 PT 21.3 H (12.2-14.9) Sec. INR 1.80 H (0.87-1.13) VBG pH (7.320-7.420) Sodium 159 H (137-145) mmol/L Potassium 4.0 (3.6-5.0) mmol/L Chloride 119.3 H (98-107) mmol/L Carbon Dioxide 24 (22-30) mmol/L Anion Gap 20 mmol/L BUN 59 H (9-20) mg/dL Creatinine 0.9 (0.8-1.5) mg/dL Estimated GFR > 60 ml/min BUN/Creatinine Ratio 66 % Glucose 122 H (75-100) mg/dL Lactic Acid (0.7-2.0) mmol/L Calcium 9.1 (8.4-10.2) mg/dL Total Bilirubin 0.50 (0.1-1.2) mg/dL AST 53 H (5-40) units/L ALT 24 (7-56) units/L Alkaline Phosphatase 32 L (35-129) units/L Total Protein 8.3 H (6.3-8.2) g/dL Albumin 3.7 L (3.9-5) g/dL Albumin/Globulin Ratio 0.8 % 04/09/18 04/09/18 Range/Units 09:40 09:40 WBC (4.5-11.0) K/mm3 RBC (3.65-5.03) M/mm3 Hgb (11.8-15.2) gm/dl Hct (35.5-45.6) % MCV (84-94) fl MCH (28-32) pg MCHC (32-34) % RDW (13.2-15.2) % Plt Count (140-440) K/mm3 Lymph % (Auto) (13.4-35.0) % [place] % (Auto) (0.0-7.3) % Eos % (Auto) (0.0-4.3) % Baso % (Auto) (0.0-1.8) % Lymph # (1.2-5.4) K/mm3 [place] # (0.0-0.8) K/mm3 Eos # (0.0-0.4) K/mm3 Baso # (0.0-0.1) K/mm3 Seg Neutrophils % (40.0-70.0) % Seg Neutrophils # (1.8-7.7) K/mm3 PT (12.2-14.9) Sec. INR (0.87-1.13) VBG pH 7.420 (7.320-7.420) Sodium (137-145) mmol/L Potassium (3.6-5.0) mmol/L Chloride (98-107) mmol/L Carbon Dioxide (22-30) mmol/L Anion Gap mmol/L BUN (9-20) mg/dL Creatinine (0.8-1.5) mg/dL Estimated GFR ml/min BUN/Creatinine Ratio % Glucose (75-100) mg/dL Lactic Acid 0.60 L (0.7-2.0) mmol/L Calcium (8.4-10.2) mg/dL Total Bilirubin (0.1-1.2) mg/dL AST (5-40) units/L ALT (7-56) units/L Alkaline Phosphatase (35-129) units/L Total Protein (6.3-8.2) g/dL Albumin (3.9-5) g/dL Albumin/Globulin Ratio % - EKG Data -: EKG Interpreted by Me - EKG Data 04/09/18 10:38 KG shows sinus tachycardia rate 126 with right bundle branch block no gross ST segment elevation or T-wave inversion normal axis - Radiology Data Radiology results: report reviewed Chest x-ray: Shows no acute cardiopulmonary disease - Medical Decision Making Chief medical diagnosis: Sepsis secondary to UTI Differential diagnosis: Sepsis secondary to pneumonia, electrolyte abnormality I will get 30 mL per kilo bolus, IV fluids, UA, CBC BMP on the patient to the hospital. Discussed with Dr. Steve he will be admitted to the hospital. Critical Care Time: Yes Critical care time in (mins) excluding proc time.: 75 Critical care attestation.: If time is entered above; I have spent that time in minutes in the direct care of this critically ill patient, excluding procedure time. Critical care time spell the patient's family 0 minutes Critical care time showed patient's bedside 40 minutes Critical care time spent reviewing imaging studies 15 minutes Critical care time spent with showroom consultant and laboratory findings 20 minutes ED Disposition Clinical Impression: Sepsis Qualifiers: Sepsis type: sepsis due to unspecified organism Qualified Code(s): A41.9 - Sepsis, unspecified organism Disposition: OP ADMIT IP TO THIS HOSP Is pt being admited?: Yes Does the pt Need Aspirin: No Condition: Stable Referrals: PRIMARY CARE, [Primary Care Provider] - 3-5 Days
[2018-04-09] MEDS ORDERED: NACL 0.9% 1000 ML IV ONE (10:10)
[2018-04-09] MEDS ORDERED: VANCOMYCIN 1,250 MG in NACL 0.9% 500 ML 500 ML IV ONE (10:10)
[2018-04-09 10:14] LABS: INR 1.8 (0.87-1.13)
[2018-04-09 10:24] LABS: Alanine Aminotransferase 24 units/L (7-56); Albumin 3.7 g/dL (3.9-5); BUN/Creatinine Ratio 66; Blood Urea Nitrogen 59 mg/dL (9-20); Calcium 9.1 mg/dL (8.4-10.2); Hemolysis Index 44
--- NOTE | 2018-04-09 10:33 | XRay Report ---
AP CHEST: HISTORY: Possible sepsis Given the rotation to the left no change is appreciated since 03/11/17. The lungs are clear. Heart size is within normal limits. IMPRESSION: Unremarkable AP chest.
[2018-04-09] MEDS ORDERED: TORADOL IV ONE (10:35)
[2018-04-09] MEDS ORDERED: ZOSYN/NS 4.5GM/100ML 4.5 GM/100 ML VIAL IV ONE (11:35)
[2018-04-09] MEDS: ZOSYN/NS 4.5GM/100ML 4.5 GM/100 ML VIAL IV SCH ×2 (11:42→16:00)
[2018-04-09] MEDS ORDERED: NACL 0.9% 1000 ML 2,000 ML ONE (12:26)
[2018-04-09 14:44] LABS: Bilirubin,Urine NEG (Negative); Blood,Urine LG (Negative); Color,Urine Yellow (Yellow); Mucus,Urine FEW /HPF; Urobilinogen,Urine < 2.0 mg/dL (<2.0)
[2018-04-09] MEDS ORDERED: ZOSYN IV ONE (16:00)
[2018-04-09] MEDS ORDERED: NS IV ONE (16:00)
[2018-04-09] MEDS ORDERED: DILAUDID IV PRN (21:28)
[2018-04-09] MEDS ORDERED: ZOFRAN IV PRN (21:28)
[2018-04-09] MEDS ORDERED: TYLENOL PO PRN (21:28)
[2018-04-09] MEDS ORDERED: SODIUM CHLORIDE FLUSH SYRINGE 10 ML IV PRN (21:28)
--- NOTE | 2018-04-09 21:28 | Event Note ---
Date: 04/09/18 See dictated history and physical and the reports Malfunctioning PEG tube which is to be removed GI tried removing it in the emergency room which was not possible
[2018-04-09] MEDS: D5/0.45NS 1,000 ML IV SCH (23:01)
[2018-04-09] MEDS: PEPCID IV SCH (23:02)
[2018-04-09] MEDS: SODIUM CHLORIDE FLUSH SYRINGE 10 ML IV SCH (23:09)
--- NOTE | 2018-04-10 01:33 | History and Physical Report ---
CHIEF COMPLAINT: 1. Fever. 2. Altered mental status. HISTORY OF PRESENT ILLNESS: The patient is a 68-year-old male with cerebral palsy and multiple contractures with seizure disorder, who comes in for fever and low blood pressure. The patient is do not resuscitate. Much history is not available. custodial states he has fever and decreased responsiveness. The patient is normally bedridden and contracted. PAST MEDICAL HISTORY: As mentioned, seizure disorder, anticoagulation, reason not known. Cerebral palsy. Mental retardation. PAST SURGICAL HISTORY: Right knee surgery. SOCIAL HISTORY: Does not smoke. Lives in retirement, contracted. No family members are present. FAMILY HISTORY: Unknown. REVIEW OF SYSTEMS: Significant for fever and decreased responsiveness. Otherwise, review of systems is unobtainable. PHYSICAL EXAMINATION: GENERAL: Elderly male. VITAL SIGNS: Temperature of 98.5 and 103, initially blood pressure of 90/66, pulse of 109, sats of 95. HEENT: Dry mucous membranes. NECK: Supple, no lymphadenopathy, no thyromegaly. LUNGS: Clear to auscultation and percussion. Good air entry. CARDIOVASCULAR: S1, S2 heard. No gallop, no murmur, no rub. Apical impulse in left fifth intercostal space and midclavicular line. ABDOMEN: Soft and benign. No hepatosplenomegaly. No guarding, no rigidity. Hernial orifices are normal. EXTREMITIES: Contracted of both lower extremities and upper extremities. CENTRAL NERVOUS SYSTEM: Alert, but not oriented. Staring at the interviewer. SKIN: Right hip ulcer present. LABORATORY AND DIAGNOSTIC DATA: Hemoglobin of 16.9, hematocrit of 53.4, sodium of 159, BUN and creatinine are 59 and 0.9, chloride of 119, glucose of 122. Chest x-ray shows no acute infiltrate. Urine shows more than 180 red cells. White count is normal. AST is slightly high at 53. Albumin is slightly low at 3.7. ASSESSMENT AND PLAN: 1. Sepsis secondary to urinary tract infection, IV ceftriaxone initiated. 2. Hypernatremia, D5 half normal saline initially. 3. Acute kidney injury, D5 half normal saline and check BUN and creatinine. 4. Malnutrition, mild to moderate. Dietitian consult requested. 5. Severe hemoconcentration secondary to volume depletion. IV fluids. 6. Deep venous thrombosis prophylaxis, Lovenox 40 mg subcutaneous daily. JOB# [id number] MARIA ESTHER/YANET
[2018-04-10 03:13] LABS: Basophils % (Auto) 0.9 % (0.0-1.8); Eosinophils # (Auto) 0.3 K/mm3 (0.0-0.4); Hematocrit 40.4 % (35.5-45.6); Lymphocytes # (Auto) 1.3 K/mm3 (1.2-5.4); Lymphocytes % (Auto) 25.1 % (13.4-35.0); Mean Corpuscular HGB Conc 32 % (32-34); Mean Corpuscular Volume 97 fl (84-94); Monocytes # (Auto) 0.6 K/mm3 (0.0-0.8); Monocytes % (Auto) 10.6 % (0.0-7.3); Platelet Count 103 K/mm3 (140-440); Red Blood Count 4.19 M/mm3 (3.65-5.03); Red Cell Distribution Width 15.1 % (13.2-15.2)
[2018-04-10 03:46] LABS: Alanine Aminotransferase 16 units/L (7-56); Albumin 2.7 g/dL (3.9-5); BUN/Creatinine Ratio 118; Blood Urea Nitrogen 47 mg/dL (9-20); Calcium 7.4 mg/dL (8.4-10.2); Hemolysis Index 28
--- NOTE | 2018-04-10 09:46 | Progress Note ---
Assessment and Plan Assessment and plan: 68-year-old male with hx of Cerebral Palsy and multiple contracture, seizure disorder and a Custodial resident presenting to the ED with hypotension and fever. Septic Shock secondary to Acute Cystitis Acute Cystitis Toxic Metabolic Encephalopathy likely secondary to Cystitis with underlying Cerebral Palsy- Unsure of baseline Severe Hypernatremia Cerebral palsy Seizure Disorder Severe protein Calorie Malnutrition Dehydration Multiple Pressure Ulcers-present on admission Plan Continue supportive care Obtain better [facility] in respect to patient eating and how much. Nursing following up Continue abx and follow cultures Continue D51/2NS Obtain Nephrology consult for Hypernatemia and serial Na level May need NGT for free water if not tolerating PO Fall precautions [employer] Consult DVT/GI prophy Plan discussed with nursing staff extensively History Interval history: Patient is seen today for: Sepsis secondary to UTI Seen and examined at bedside; 24hour events reviewed; nursing staff ; no adverse overnight events reported to me; patient with underlying history of cerebral palsy and is able to give any information. His tongue appears very dry. She has not eaten or drank fluid 4 days. Will get more information from the [facility]. No fever noted blood pressure controlled Hospitalist Physical - Physical exam Narrative exam: VITAL SIGNS: Reviewed. GENERAL: The patient appeared chronically ill-appearing markedly cachectic with temporal wasting. Vital signs as documented. HEAD: No signs of head trauma. EYES: Pupils are equal. Extraocular motions appear dry with crusting noted intact. EARS: Hearing grossly intact. MOUTH: Oropharynx is normal. NECK: No adenopathy, no JVD. CHEST: Chest with clear breath sounds bilaterally. No wheezes, rales, or rhonchi. CARDIAC: Regular rate and rhythm. S1 and S2, without murmurs, gallops, or rubs. VASCULAR: No Edema. Peripheral pulses normal and equal in all extremities. ABDOMEN: Soft, without detectable tenderness. No sign of distention. No rebound or guarding, and no masses palpated. Bowel Sounds normal. : Present indwelling Hogan catheter MUSCULOSKELETAL: Good range of motion of all major joints. Extremities without clubbing, cyanosis or edema. NEUROLOGIC EXAM: Alert and unable to assess orientation.. No focal sensory or strength deficits. PSYCHIATRIC: Unable to examine patient appears to follow some commands but true exam not clearly possible. SKIN: Multiple pressure ulcers including the right. Please see admission photographs for further details. Maculopapular rash generalized and ALSO upper extremities the lower extremities. - Constitutional Vitals: Temp Pulse Resp BP Pulse Ox 98.2 F 75 18 100/53 95 04/10/18 07:12 04/10/18 07:42 04/10/18 07:42 04/10/18 07:12 04/10/18 07:12 Results - Labs CBC & Chem 7: 04/10/18 02:43 04/10/18 02:43 Labs: Laboratory Last Values WBC 5.3 K/mm3 (4.5-11.0) 04/10/18 02:43 RBC 4.19 M/mm3 (3.65-5.03) 04/10/18 02:43 Hgb 13.0 gm/dl (11.8-15.2) D 04/10/18 02:43 Hct 40.4 % (35.5-45.6) D 04/10/18 02:43 MCV 97 fl (84-94) H 04/10/18 02:43 MCH 31 pg (28-32) 04/10/18 02:43 MCHC 32 % (32-34) 04/10/18 02:43 RDW 15.1 % (13.2-15.2) 04/10/18 02:43 Plt Count 103 K/mm3 (140-440) L 04/10/18 02:43 Lymph % (Auto) 25.1 % (13.4-35.0) 04/10/18 02:43 [place] % (Auto) 10.6 % (0.0-7.3) H 04/10/18 02:43 Eos % (Auto) 5.0 % (0.0-4.3) H 04/10/18 02:43 Baso % (Auto) 0.9 % (0.0-1.8) 04/10/18 02:43 Lymph # 1.3 K/mm3 (1.2-5.4) 04/10/18 02:43 [place] # 0.6 K/mm3 (0.0-0.8) 04/10/18 02:43 Eos # 0.3 K/mm3 (0.0-0.4) 04/10/18 02:43 Baso # 0.0 K/mm3 (0.0-0.1) 04/10/18 02:43 Seg Neutrophils % 58.4 % (40.0-70.0) 04/10/18 02:43 Seg Neutrophils # 3.1 K/mm3 (1.8-7.7) 04/10/18 02:43 PT 21.3 Sec. (12.2-14.9) H 04/09/18 09:40 INR 1.80 (0.87-1.13) H 04/09/18 09:40 VBG pH 7.420 (7.320-7.420) 04/09/18 09:40 Sodium 161 mmol/L (137-145) H* 04/10/18 02:43 Potassium 3.7 mmol/L (3.6-5.0) 04/10/18 02:43 Chloride 128.7 mmol/L (98-107) H 04/10/18 02:43 Carbon Dioxide 25 mmol/L (22-30) 04/10/18 02:43 Anion Gap 11 mmol/L 04/10/18 02:43 BUN 47 mg/dL (9-20) H 04/10/18 02:43 Creatinine 0.4 mg/dL (0.8-1.5) L D 04/10/18 02:43 Estimated GFR > 60 ml/min 04/10/18 02:43 BUN/Creatinine Ratio 118 % 04/10/18 02:43 Glucose 112 mg/dL (75-100) H 04/10/18 02:43 Hemoglobin A1c 5.8 % (4-6) 04/09/18 21:36 Lactic Acid 1.00 mmol/L (0.7-2.0) 04/09/18 12:37 Calcium 7.4 mg/dL (8.4-10.2) L D 04/10/18 02:43 Total Bilirubin 0.40 mg/dL (0.1-1.2) 04/10/18 02:43 AST 26 units/L (5-40) 04/10/18 02:43 ALT 16 units/L (7-56) 04/10/18 02:43 Alkaline Phosphatase 25 units/L (35-129) L 04/10/18 02:43 Total Protein 5.7 g/dL (6.3-8.2) L D 04/10/18 02:43 Albumin 2.7 g/dL (3.9-5) L 04/10/18 02:43 Albumin/Globulin Ratio 0.9 % 04/10/18 02:43 Urine Color Yellow (Yellow) 04/09/18 14:27 Urine Turbidity Clear (Clear) 04/09/18 14:27 Urine pH 5.0 (5.0-7.0) 04/09/18 14:27 Ur Specific [place] 1.029 (1.003-1.030) 04/09/18 14:27 Urine Protein 100 mg/dl mg/dL (Negative) 04/09/18 14:27 Urine Glucose (UA) Neg mg/dL (Negative) 04/09/18 14:27 Urine Ketones Tr mg/dL (Negative) 04/09/18 14:27 Urine Blood Lg (Negative) 04/09/18 14:27 Urine Nitrite Neg (Negative) 04/09/18 14:27 Urine Bilirubin Neg (Negative) 04/09/18 14:27 Urine Urobilinogen < 2.0 mg/dL (<2.0) 04/09/18 14:27 Ur Leukocyte Esterase Mod (Negative) 04/09/18 14:27 Urine WBC (Auto) 180.0 /HPF (0.0-6.0) H 04/09/18 14:27 Urine RBC (Auto) 24.0 /HPF (0.0-6.0) 04/09/18 14:27 Urine Mucus Few /HPF 04/09/18 14:27 - Imaging and Cardiology Chest x-ray: image reviewed (no acute pathology)
--- NOTE | 2018-04-10 09:46 | Consultation ---
History of Present Illness - Reason for Consult Consult date: 04/10/18 hypernatremia - History of Present Illness the patient is a 68 year old male wioth cerebral plasy was sent from [facility] due to low BP, he was found to have severe hypernatremia and renal consult was requested Past History Past Medical History: other (cerebral palsy) Medications and Allergies Allergies Allergy/AdvReac Type Severity Reaction Status Date / Time No Known Allergies Allergy Verified 02/28/17 12:30 Home Medications Medication Instructions Recorded Confirmed Last Taken Type Divalproex ER [Depakote ER] 500 mg PO HS 04/11/13 03/01/17 02/27/17 20:00 History Docusate Sodium 100 mg PO BID 02/12/15 03/01/17 02/28/17 08:00 History Ensure 1 dose PO BID 02/12/15 03/01/17 02/28/17 10:00 History Multivitamins 1 tab PO DAILY 02/12/15 03/01/17 02/28/17 08:00 History Ranitidine HCl 150 mg PO DAILY 02/12/15 03/01/17 02/27/17 19:00 History RisperiDONE 1 mg PO DAILY 02/12/15 03/01/17 02/27/17 20:00 History Ascorbic Acid [Vitamin C] 500 mg PO DAILY 09/27/15 03/01/17 02/28/17 08:00 History Collagenase (Nf) [Santyl (Nf)] 1 applicatio TP QDAY 03/01/17 03/01/17 Unknown History Multivitamin/Iron/Folic Acid 1 each PO DAILY 03/01/17 03/01/17 02/28/17 08:00 History [Centrum Adults Tablet] Santyl 250 gm TP DAILY 03/01/17 03/01/17 Unknown History Warfarin [Coumadin] 5 mg PO DAILY@1700 #30 tablet 03/08/17 Unknown Rx Divalproex Sprinkle [Depakote 250 mg PO BID capsule 03/13/17 Unknown Rx Sprinkle] Multivitamin Tab [Multiple Vitamin 1 each PO DAILY tablet 03/13/17 Unknown Rx TAB (Theragran)] risperiDONE [RisperDAL] 1 mg PO QDAY tablet 03/13/17 Unknown Rx Docusate Sodium [Colace CAP] 100 mg PO BID [facility] [employer]IP[facility] 04/09/18 Unknown History Warfarin [Coumadin] 5 mg PO HS 04/09/18 Unknown History Active Meds: Active Medications Acetaminophen (Tylenol) 650 mg PO Q4H PRN PRN Reason: Pain MILD(1-3)/Fever >100.5/MICHELLE Divalproex Sodium (Depakote Er) 500 mg PO HS [facility] Divalproex Sodium (Depakote Sprinkle) 250 mg PO BID@0800,1700 [facility] Docusate Sodium (Colace) 100 mg PO BID [facility] Enoxaparin Sodium (Lovenox) 40 mg SUB-Q QDAY@2200 [facility] Famotidine (Pepcid) 20 mg IV BID [facility] Last Admin: 04/09/18 23:02 Dose: 20 mg Documented by: Hydromorphone HCl (Dilaudid) 0.5 mg IV Q3H PRN PRN Reason: Pain , Severe (7-10) Dextrose/Sodium Chloride (D5/0.45ns) 1,000 mls @ 125 mls/hr IV DIRECT [facility] Last Admin: 04/09/18 23:01 Dose: 125 mls/hr Documented by: Ceftriaxone Sodium (Rocephin/Ns 2 Gm/100 Ml) 2 gm in 100 mls @ 200 mls/hr IV Q24HR [facility]; Protocol Ondansetron HCl (Zofran) 4 mg IV Q8H PRN PRN Reason: Nausea And Vomiting Risperidone (Risperdal) 1 mg PO DAILY [facility] Sodium Chloride (Sodium Chloride Flush Syringe 10 Ml) 10 ml IV BID [facility] Last Admin: 04/09/18 23:09 Dose: 10 ml Documented by: Sodium Chloride (Sodium Chloride Flush Syringe 10 Ml) 10 ml IV PRN PRN PRN Reason: LINE FLUSH Warfarin Sodium (Coumadin) 5 mg PO DAILY@1700 [facility]; Protocol Review of Systems ROS unobtainable: due to mental status Exam - Vital Signs Vital signs: Vital Signs Temp 103.6 F H 04/09/18 10:27 - General Appearance General appearance: cachectic EENT: ATNC, mucous membranes dry Neck: Present: neck supple Respiratory: Clear to Ascultation Heart: tachycardia, S1S2 Gastrointestinal: Present: normoactive bowel sounds. Absent: tenderness, distended Integumentary: no rash, warm and dry Neurologic: other (follows simple commands) Musculoskeletal: Present: other (no edema in BLE) Psychiatric: cooperative Results - Lab Results 04/10/18 02:43 04/10/18 02:43 Most recent lab results Calcium 7.4 mg/dL (8.4-10.2) L D 04/10/18 02:43 Assessment and Plan Hypernatremia, secondary to low oral intake hypotension, possibly secondary to volume depletion cerebral palsy - started on 1/2 NS @ 125 cc/h, will cont for now for both low BP and [id number] - will monitor NA Q8H - urine lytes and osm ordered - strict I&O - daily weight
[2018-04-10] MEDS ORDERED: COLLAGENASE TP SCH (10:00)
[2018-04-10] MEDS ORDERED: ENSURE PO SCH (10:00)
--- NOTE | 2018-04-10 11:59 | XRay Report ---
AP ABDOMEN: HISTORY: Check NG tube placement. A Dobbhoff tube has been inserted which terminates in the fundus of the stomach. The abdominal gas pattern is unremarkable. No masses or organomegaly is identified and there is no gross evidence of free air or fluid. No significant soft tissue calcifications are noted. IMPRESSION: Unremarkable abdomen.
[2018-04-10] MEDS: ROCEPHIN/NS 2 GM/100 ML 2 GM/100 ML BAG IV SCH (13:14)
[2018-04-10] MEDS: PEPCID IV SCH ×2 (13:16→22:22)
[2018-04-10] MEDS: COLACE PO SCH ×2 (13:16→22:00)
[2018-04-10] MEDS: RisperDAL PO SCH (13:16)
[2018-04-10] MEDS: SODIUM CHLORIDE FLUSH SYRINGE 10 ML IV SCH ×2 (13:17→22:00)
[2018-04-10] MEDS: COUMADIN PO SCH (17:20)
[2018-04-10] MEDS: D5/0.45NS 1,000 ML IV SCH (17:23)
[2018-04-10] MEDS: LOVENOX SUB-Q SCH (22:22)
[2018-04-10 23:41] LABS: Creatinine,Urine 94.1 mg/dL (0.1-20.0)
[2018-04-11] MEDS: D5/0.45NS 1,000 ML IV SCH ×2 (02:11→10:59)
[2018-04-11 07:18] LABS: Basophils % (Auto) TNR % (0.0-1.8); Eosinophils % (Auto) TNR % (0.0-4.3); Hematocrit TNR % (35.5-45.6); Hemoglobin TNR gm/dl (11.8-15.2); INR 1.87 (0.87-1.13); Lymphocytes % (Auto) TNR % (13.4-35.0); Mean Corpuscular HGB Conc TNR % (32-34); Mean Corpuscular Volume TNR fl (84-94); Mean Platelet Volume TNR fl (6-12); Monocytes % (Auto) TNR % (0.0-7.3); Platelet Count TNR K/mm3 (140-440); Red Blood Count TNR M/mm3 (3.65-5.03); Red Cell Distribution Width TNR % (13.2-15.2)
[2018-04-11 07:19] LABS: Basophils # (Auto) TNR K/mm3 (0.0-0.1); Eosinophils # (Auto) TNR K/mm3 (0.0-0.4); Lymphocytes # (Auto) TNR K/mm3 (1.2-5.4); Monocytes # (Auto) TNR K/mm3 (0.0-0.8)
[2018-04-11 07:20] LABS: BUN/Creatinine Ratio 75; Blood Urea Nitrogen 15 mg/dL (9-20); Calcium 7.5 mg/dL (8.4-10.2); Hemolysis Index 12
[2018-04-11 08:33] LABS: Hematocrit 33.1 % (35.5-45.6); Mean Corpuscular HGB Conc 33 % (32-34); Mean Corpuscular Volume 95 fl (84-94); Red Blood Count 3.48 M/mm3 (3.65-5.03); Red Cell Distribution Width 14.5 % (13.2-15.2)
[2018-04-11 08:56] LABS: Platelet Count 89 K/mm3 (140-440)
[2018-04-11] MEDS: RisperDAL PO SCH (09:23)
[2018-04-11] MEDS: COLACE PO SCH ×2 (09:23→22:12)
[2018-04-11] MEDS: PEPCID IV SCH ×2 (09:24→22:12)
[2018-04-11] MEDS: SODIUM CHLORIDE FLUSH SYRINGE 10 ML IV SCH ×2 (09:24→22:13)
--- NOTE | 2018-04-11 09:41 | Progress Note ---
Assessment and Plan Assessment and plan: 68-year-old male with hx of Cerebral Palsy and multiple contracture, seizure disorder and a [facility] resident presenting to the ED with hypotension and fever. Septic Shock secondary to Acute Cystitis Acute Cystitis Toxic Metabolic Encephalopathy likely secondary to Cystitis with underlying Cerebral Palsy- Unsure of baseline Severe Hypernatremia Cerebral palsy Seizure Disorder Hypokalemia Severe protein Calorie Malnutrition Thrombocytopenia Dehydration-hypotensive Multiple Pressure Ulcers-present on admission Plan Continue supportive care Obtain better information from the assisted in respect to patient eating and how much. Nursing following up Continue abx and follow cultures- GPC 1/2 Will repeat. Continue 1/2NS as adjusted by nephrology hyponatremia appears to be improving Replace potassium Dobhoff in place. Per family patient tolerates PO with familiar faces. Will await Patient Services Clerk input about appropriateness of nutrition Cultures reviewed and no growth at this time. Fall precautions DVT/GI prophy Plan discussed with nursing staff extensively History Interval history: Patient is seen today for: Sepsis secondary to UTI Seen and examined at bedside; 24hour events reviewed; nursing staff ; no adverse overnight events reported to me; patient with underlying history of cerebral palsy and is able to give any information. His tongue appears very dry. Tolerating PO but needs assist with feeding. Hospitalist Physical - Physical exam Narrative exam: VITAL SIGNS: Reviewed. GENERAL: The patient appeared chronically ill-appearing markedly cachectic with temporal wasting. Vital signs as documented. HEAD: No signs of head trauma. EYES: Pupils are equal. Extraocular motions appear dry with crusting noted intact. EARS: Hearing grossly intact. MOUTH: Oropharynx is normal. NECK: No adenopathy, no JVD. CHEST: Chest with clear breath sounds bilaterally. No wheezes, rales, or rhonchi. CARDIAC: Regular rate and rhythm. S1 and S2, without murmurs, gallops, or rubs. VASCULAR: No Edema. Peripheral pulses normal and equal in all extremities. ABDOMEN: Soft, without detectable tenderness. No sign of distention. No rebound or guarding, and no masses palpated. Bowel Sounds normal. : Present indwelling Hogan catheter MUSCULOSKELETAL: Good range of motion of all major joints. Extremities without clubbing, cyanosis or edema. NEUROLOGIC EXAM: Alert and unable to assess orientation.. No focal sensory or strength deficits. PSYCHIATRIC: Unable to examine patient appears to follow some commands but true exam not clearly possible. SKIN: Multiple pressure ulcers including the right. Please see admission photographs for further details. Maculopapular rash generalized and ALSO upper extremities the lower extremities. - Constitutional Vitals: Temp Pulse Resp BP Pulse Ox 98.7 F 66 18 92/56 98 04/11/18 07:15 04/11/18 07:15 04/11/18 07:15 04/11/18 07:15 04/11/18 07:15 Results - Labs CBC & Chem 7: 04/11/18 08:20 04/11/18 09:38 Labs: Laboratory Last Values WBC 4.8 K/mm3 (4.5-11.0) 04/11/18 08:20 RBC 3.48 M/mm3 (3.65-5.03) L 04/11/18 08:20 Hgb 11.0 gm/dl (11.8-15.2) L 04/11/18 08:20 Hct 33.1 % (35.5-45.6) L D 04/11/18 08:20 MCV 95 fl (84-94) H 04/11/18 08:20 MCH 32 pg (28-32) 04/11/18 08:20 MCHC 33 % (32-34) 04/11/18 08:20 RDW 14.5 % (13.2-15.2) 04/11/18 08:20 Plt Count 89 K/mm3 (140-440) L 04/11/18 08:20 Lymph % (Auto) TNR 04/11/18 06:33 [place] % (Auto) TNR 04/11/18 06:33 Eos % (Auto) [employer] 04/11/18 08:20 Baso % (Auto) TNR 04/11/18 06:33 Lymph # TNR 04/11/18 06:33 [place] # TNR 04/11/18 06:33 Eos # TNR 04/11/18 06:33 Baso # TNR 04/11/18 06:33 Add Manual Diff TNR 04/11/18 06:33 Seg Neutrophils % TNR 04/11/18 06:33 Seg Neutrophils # TNR 04/11/18 06:33 PT 21.9 Sec. (12.2-14.9) H 04/11/18 06:33 INR 1.87 (0.87-1.13) H 04/11/18 06:33 VBG pH 7.420 (7.320-7.420) 04/09/18 09:40 Sodium 151 mmol/L (137-145) H 04/11/18 06:33 Potassium 3.0 mmol/L (3.6-5.0) L 04/11/18 06:33 Chloride 121.3 mmol/L (98-107) H 04/11/18 06:33 Carbon Dioxide 22 mmol/L (22-30) 04/11/18 06:33 Anion Gap 11 mmol/L 04/11/18 06:33 BUN 15 mg/dL (9-20) 04/11/18 06:33 Creatinine 0.2 mg/dL (0.8-1.5) L 04/11/18 06:33 Estimated GFR > 60 ml/min 04/11/18 06:33 BUN/Creatinine Ratio 75 % 04/11/18 06:33 Glucose 105 mg/dL (75-100) H 04/11/18 06:33 Hemoglobin A1c 5.8 % (4-6) 04/09/18 21:36 Lactic Acid 1.00 mmol/L (0.7-2.0) 04/09/18 12:37 Calcium 7.5 mg/dL (8.4-10.2) L 04/11/18 06:33 Total Bilirubin 0.40 mg/dL (0.1-1.2) 04/10/18 02:43 AST 26 units/L (5-40) 04/10/18 02:43 ALT 16 units/L (7-56) 04/10/18 02:43 Alkaline Phosphatase 25 units/L (35-129) L 04/10/18 02:43 Total Protein 5.7 g/dL (6.3-8.2) L D 04/10/18 02:43 Albumin 2.7 g/dL (3.9-5) L 04/10/18 02:43 Albumin/Globulin Ratio 0.9 % 04/10/18 02:43 Urine Color Yellow (Yellow) 04/09/18 14:27 Urine Turbidity Clear (Clear) 04/09/18 14:27 Urine pH 5.0 (5.0-7.0) 04/09/18 14:27 Ur Specific [place] 1.029 (1.003-1.030) 04/09/18 14:27 Urine Protein 100 mg/dl mg/dL (Negative) 04/09/18 14:27 Urine Glucose (UA) Neg mg/dL (Negative) 04/09/18 14:27 Urine Ketones Tr mg/dL (Negative) 04/09/18 14:27 Urine Blood Lg (Negative) 04/09/18 14:27 Urine Nitrite Neg (Negative) 04/09/18 14:27 Urine Bilirubin Neg (Negative) 04/09/18 14:27 Urine Urobilinogen < 2.0 mg/dL (<2.0) 04/09/18 14:27 Ur Leukocyte Esterase Mod (Negative) 04/09/18 14:27 Urine WBC (Auto) 180.0 /HPF (0.0-6.0) H 04/09/18 14:27 Urine RBC (Auto) 24.0 /HPF (0.0-6.0) 04/09/18 14:27 Urine Mucus Few /HPF 04/09/18 14:27 Urine Osmolality 892 Mosm/kg 04/10/18 09:42 Urine Creatinine 94.1 mg/dL (0.1-20.0) H 04/10/18 09:42 Urine Sodium 16 mmol/L 04/10/18 09:42 Nutrition/Malnutrition Assess - Dietary Evaluation Nutrition/Malnutrition Findings: Nutrition Notes Start: 04/10/18 13:09 Freq: Status: Active Protocol: Document 04/10/18 13:09 RM (Rec: 04/10/18 13:23 RM [id number]) Nutrition Notes Need for Assessment generated from: MD Order Initial or Follow up Assessment Current Diagnoses Acute Kidney Injury Sepsis Other Pertinent Diagnosis Sacral PU, R hip PU, UTI, Cerebral palsy, Mental retardation Current Diet NPO Labs/Tests Na 161 Medications Reviewed Height 5 ft 6 in Weight 65.77 kg [place] Body Weight (lbs) 142.0 BMI 23.3 Subjective/Other Information Consulted for ONS recommendation and screened for Coumadin/Vit K diet education. Pt not appropriate for Coumadin/Vit K diet education. Nurse had just placed dobhoff at time of visit for water flushes to address high Na. Nurse unsure of meaning of consult but stated that pt would close his mouth when she attempted to feed him. Family not present to facilitate assessment. Burn Absent Trauma Absent #1 Nutrition Diagnoses Inadequate oral intake Etiology mental retardation, cerebral palsy As Evidenced by Signs and Symptoms pt nurse statement that pt closes his mouth during attempts to feed him Is patient on ventilator? No Is Patient Ambulatory and/or Out of Bed No REE-([facility]-confined to bed) 1662.084 Calculation Used for Recommendations [facility] Additional Notes Protein Needs: 79-99g (1.2-1. 5g/kg) Fluid Needs: 1 ml/kcal Nutrition Intervention Change Diet Order: Advance diet when medically able or TF consult Goal #1 Diet advancement or TF consult Anticipated Discharge Needs: Unable to determine at this time Follow-Up By: 04/12/18 Additional Comments Follow for POC
[2018-04-11] MEDS: ROCEPHIN/NS 2 GM/100 ML 2 GM/100 ML BAG IV SCH (11:00)
--- NOTE | 2018-04-11 11:06 | Progress Note ---
Assessment and Plan Hypernatremia, secondary to low oral intake hypotension, possibly secondary to volume depletion cerebral palsy - free water flushes 250 cc Q4H ordered, will d/c 1/2 NS to D5W 50 cc/h - will monitor Na Q8H - urine osm and sodium consistent with volume depletion - can bolus with NS as needed for low BP, will give one NS 500 cc bolus - strict I&O - daily weight Subjective Date of service: 04/11/18 Principal diagnosis: hypernatremia Interval history: follows simple commands, no family at bedside Objective - Vital Signs Vital signs: Vital Signs - 12hr 04/11/18 04/11/18 04/11/18 02:25 03:01 07:15 Temperature 100.1 F H 100.1 F H 98.7 F Pulse Rate 62 63 66 Pulse Rate [ From Monitor] Respiratory 20 20 18 Rate Blood Pressure 74/46 92/56 Blood Pressure 75/46 [Right] O2 Sat by Pulse 98 98 98 Oximetry 04/11/18 09:53 Temperature Pulse Rate Pulse Rate [ 72 From Monitor] Respiratory Rate Blood Pressure Blood Pressure [Right] O2 Sat by Pulse Oximetry - General Appearance General appearance: cachectic EENT: ATNC, PERRL Neck: no JVD, no carotid bruit Respiratory: Present: Clear to Ascultation. Absent: Rales, Ronchi Cardiology: regular, S1S2 Gastrointestinal: normoactive bowel sounds Integumentary: no rash, warm and dry Neurologic: other (follows simple commands) Musculoskeletal: other (no edema in BLE) Psychiatric: other - Lab 04/11/18 08:20 04/11/18 09:38 Most recent lab results Calcium 7.5 mg/dL (8.4-10.2) L 04/11/18 06:33 Urine Creatinine 94.1 mg/dL (0.1-20.0) H 04/10/18 09:42 Urine Sodium 16 mmol/L 04/10/18 09:42 Medications & Allergies - Medications Allergies/Adverse Reactions: Allergies No Known Allergies Allergy (Verified 02/28/17 12:30) Home Medications: Home Medications Medication Instructions Recorded Confirmed Last Taken Type Divalproex ER [Depakote ER] 500 mg PO HS 04/11/13 03/01/17 02/27/17 20:00 History Docusate Sodium 100 mg PO BID 02/12/15 03/01/17 02/28/17 08:00 History Ensure 1 dose PO BID 02/12/15 03/01/17 02/28/17 10:00 History Multivitamins 1 tab PO DAILY 02/12/15 03/01/17 02/28/17 08:00 History Ranitidine HCl 150 mg PO DAILY 02/12/15 03/01/17 02/27/17 19:00 History RisperiDONE 1 mg PO DAILY 02/12/15 03/01/17 02/27/17 20:00 History Ascorbic Acid [Vitamin C] 500 mg PO DAILY 09/27/15 03/01/17 02/28/17 08:00 History Collagenase (Nf) [Santyl (Nf)] 1 applicatio TP QDAY 03/01/17 03/01/17 Unknown History Multivitamin/Iron/Folic Acid 1 each PO DAILY 03/01/17 03/01/17 02/28/17 08:00 History [Centrum Adults Tablet] Santyl 250 gm TP DAILY 03/01/17 03/01/17 Unknown History Warfarin [Coumadin] 5 mg PO DAILY@1700 #30 tablet 03/08/17 Unknown Rx Divalproex Sprinkle [Depakote 250 mg PO BID capsule 03/13/17 Unknown Rx Sprinkle] Multivitamin Tab [Multiple Vitamin 1 each PO DAILY tablet 03/13/17 Unknown Rx TAB (Theragran)] risperiDONE [RisperDAL] 1 mg PO QDAY tablet 03/13/17 Unknown Rx Docusate Sodium [Colace CAP] 100 mg PO BID MDD CONSTIPATION 04/09/18 Unknown History Warfarin [Coumadin] 5 mg PO HS 04/09/18 Unknown History Active Medications: Generic Name Dose Route Start Last Admin Trade Name Freq PRN Reason Stop Dose Admin Acetaminophen 650 mg 04/09/18 21:28 Tylenol PO Q4H PRN Pain MILD(1-3)/Fever >100.5/MICHELLE Divalproex Sodium 500 mg 04/10/18 22:00 04/10/18 22:21 Depakote Er PO 500 mg HS [facility] Administration Divalproex Sodium 250 mg 04/10/18 08:00 04/11/18 08:15 Depakote Sprinkle PO 250 mg BID@0800,1700 [facility] Administration Docusate Sodium 100 mg 04/10/18 10:00 04/11/18 09:23 Colace PO 100 mg BID [facility] Administration Enoxaparin Sodium 40 mg 04/10/18 22:00 04/10/18 22:22 Lovenox SUB-Q 40 mg QDAY@2200 [facility] Administration Famotidine 20 mg 04/09/18 22:00 04/11/18 09:24 Pepcid IV 20 mg BID [facility] Administration Hydromorphone HCl 0.5 mg 04/09/18 21:28 Dilaudid IV Q3H PRN Pain , Severe (7-10) Ceftriaxone Sodium 2 gm in 100 mls @ 200 mls/hr 04/10/18 10:00 04/11/18 11:00 Rocephin/Ns 2 Gm/100 Ml IV 200 mls/hr Q24HR [facility] Administration Protocol Sodium Chloride 1,000 mls @ 999 mls/hr 04/11/18 09:39 Nacl 0.9% 1000 Ml IV 04/11/18 10:39 BOLUS ONE Potassium Chloride 10 meq in 100 mls @ 100 mls/hr 04/11/18 10:00 Kcl 10meq/100ml IV 04/11/18 13:59 Q1H [facility] Dextrose 1,000 mls @ 50 mls/hr 04/11/18 12:00 D5w IV DIRECT [facility] Ondansetron HCl 4 mg 04/09/18 21:28 Zofran IV Q8H PRN Nausea And Vomiting Risperidone 1 mg 04/10/18 10:00 04/11/18 09:23 Risperdal PO 1 mg DAILY [facility] Administration Sodium Chloride 10 ml 04/09/18 22:00 04/11/18 09:24 Sodium Chloride Flush Syringe 10 Ml IV 10 ml BID [facility] Administration Sodium Chloride 10 ml 04/09/18 21:28 Sodium Chloride Flush Syringe 10 Ml IV PRN PRN LINE FLUSH Warfarin Sodium 5 mg 04/10/18 17:00 04/10/18 17:20 Coumadin PO 5 mg DAILY@1700 T[facility] Administration Protocol
[2018-04-11 11:10] LABS: Total Cells Counted 100
[2018-04-11 11:11] LABS: Band Neutrophils # (Manual) 0.2 K/mm3; Basophils % (Manual) 0 % (0.0-1.8); Platelet Estimate Consistent w Auto; RBC Morphology Normal
[2018-04-11] MEDS ORDERED: D5W 1,000 ML IV SCH (12:00)
[2018-04-11] MEDS ORDERED: NACL 0.9% 500 ML 500 ML IV ONE (12:06)
[2018-04-11] MEDS ORDERED: NACL 0.9% 1000 ML 1,000 ML IV ONE (12:30)
[2018-04-11] MEDS: KCL 10MEQ/100ML 10 MEQ/100 ML BAG IV SCH ×4 (12:46→16:23)
[2018-04-11] MEDS ORDERED: VANCOMYCIN PHARMACY TO DOSE IV SCH (14:00)
[2018-04-11] MEDS ORDERED: VANCOMYCIN 1,250 MG in NACL 0.9% 250ML 250 ML IV ONE (15:00)
[2018-04-11] MEDS: COUMADIN PO SCH (17:29)
[2018-04-11] MEDS: LOVENOX SUB-Q SCH (22:12)
[2018-04-12] MEDS ORDERED: VANCOMYCIN/NS 1 GM/250 ML 1 GM/250 ML BAG IV SCH (04:00)
[2018-04-12 05:50] LABS: Hematocrit 41.4 % (35.5-45.6); Hemoglobin 13.5 gm/dl (11.8-15.2); Mean Corpuscular HGB Conc 33 % (32-34); Mean Corpuscular Volume 96 fl (84-94); Platelet Count 102 K/mm3 (140-440); Red Blood Count 4.34 M/mm3 (3.65-5.03); Red Cell Distribution Width 14.7 % (13.2-15.2)
[2018-04-12 05:59] LABS: INR 2.67 (0.87-1.13)
[2018-04-12 06:13] LABS: BUN/Creatinine Ratio 25; Blood Urea Nitrogen 5 mg/dL (9-20); Hemolysis Index 10
[2018-04-12 07:07] LABS: Anisocytosis 1+; Basophils % (Manual) 0 % (0.0-1.8); Platelet Estimate Cons; Total Cells Counted 100
[2018-04-12] MEDS: PEPCID IV SCH ×2 (09:02→21:33)
[2018-04-12] MEDS: RisperDAL PO SCH (09:02)
[2018-04-12] MEDS: COLACE PO SCH ×2 (09:02→21:31)
[2018-04-12] MEDS: SODIUM CHLORIDE FLUSH SYRINGE 10 ML IV SCH ×2 (09:02→21:36)
[2018-04-12] MEDS: ROCEPHIN/NS 2 GM/100 ML 2 GM/100 ML BAG IV SCH (09:03)
--- NOTE | 2018-04-12 10:56 | Progress Note ---
Assessment and Plan Hypernatremia, secondary to low oral intake hypotension, possibly secondary to volume depletion cerebral palsy - Na is trending down, will d/c D5W and increase water flushes to 300 cc Q4H - urine osm and sodium consistent with volume depletion - can bolus with NS as needed for low BP - strict I&O - daily weight Subjective Date of service: 04/12/18 Principal diagnosis: hypernatremia Interval history: no family at bedside, tolerating water flushes per RN Objective - Vital Signs Vital signs: Vital Signs - 12hr 04/12/18 04/12/18 02:13 07:14 Temperature 98.5 F 98.9 F Pulse Rate 50 L 69 Respiratory 18 18 Rate Blood Pressure 84/40 89/54 O2 Sat by Pulse 99 100 Oximetry - General Appearance General appearance: cachectic EENT: ATNC, PERRL, mucous membranes dry Neck: no JVD, no thyromegaly Respiratory: Present: Clear to Ascultation Cardiology: regular, S1S2 Gastrointestinal: normoactive bowel sounds Integumentary: no rash, warm and dry Neurologic: other (follows simpe commands) Musculoskeletal: other (no edema in BLE) - Lab 04/12/18 05:24 04/12/18 05:24 Most recent lab results Calcium 8.0 mg/dL (8.4-10.2) L 04/12/18 05:24 Urine Creatinine 94.1 mg/dL (0.1-20.0) H 04/10/18 09:42 Urine Sodium 16 mmol/L 04/10/18 09:42 Medications & Allergies - Medications Allergies/Adverse Reactions: Allergies No Known Allergies Allergy (Verified 02/28/17 12:30) Home Medications: Home Medications Medication Instructions Recorded Confirmed Last Taken Type Divalproex ER [Depakote ER] 500 mg PO HS 04/11/13 03/01/17 02/27/17 20:00 Hi story Docusate Sodium 100 mg PO BID 02/12/15 03/01/17 02/28/17 08:00 History Ensure 1 dose PO BID 02/12/15 03/01/17 02/28/17 10:00 History Multivitamins 1 tab PO DAILY 02/12/15 03/01/17 02/28/17 08:00 History Ranitidine HCl 150 mg PO DAILY 02/12/15 03/01/1702/27/17 19:00 History RisperiDONE 1 mg PO DAILY 02/12/15 03/01/17 02/27/17 20:00 History Ascorbic Acid [Vitamin C] 500 mg PO DAILY 09/27/15 03/01/17 02/28/17 08:00 History Collagenase (Nf) [Santyl (Nf)] 1 applicatio TP QDAY 03/01/17 03/01/17 Unknown History Multivitamin/Iron/Folic Acid 1 each PO DAILY 03/01/17 03/01/17 02/28/17 08:00 History [Centrum Adults Tablet] Santyl 250 gm TP DAILY 03/01/17 03/01/17 Unknown History Warfarin [Coumadin] 5 mg PO DAILY@1700 #30 tablet 03/08/17 Unknown Rx Divalproex Sprinkle [Depakote 250 mg PO BID capsule 03/13/17 Unknown Rx Sprinkle] Multivitamin Tab [Multiple Vitamin 1 each PO DAILY tablet 03/13/17 Unknown Rx TAB (Theragran)] risperiDONE [RisperDAL] 1 mg PO QDAY tablet 03/13/17 Unknown Rx Docusate Sodium [Colace CAP] 100 mg PO BID MDD CONSTIPATION 04/09/18 Unknown History Warfarin [Coumadin] 5 mg PO HS 04/09/18 Unknown History Active Medications: Generic Name Dose Route Start Last Admin Trade Name Freq PRN Reason Stop Dose Admin Acetaminophen 650 mg 04/09/18 21:28 Tylenol PO Q4H PRN Pain MILD(1-3)/Fever >100.5/MICHELLE Divalproex Sodium 500 mg 04/10/18 22:00 04/11/18 22:12 Depakote Er PO 500 mg HS [facility] Administration Divalproex Sodium 250 mg 04/10/18 08:00 04/12/18 08:16 Depakote Sprinkle PO 250 mg BID@0800,1700 [facility] Administration Docusate Sodium 100 mg 04/10/18 10:00 04/12/18 09:02 Colace PO 100 mg BID [facility] Administration Famotidine 20 mg 04/09/18 22:00 04/12/18 09:02 Pepcid IV 20 mg BID [facility] Administration Hydromorphone HCl 0.5 mg 04/09/18 21:28 Dilaudid IV Q3H PRN Pain , Severe (7-10) Ceftriaxone Sodium 2 gm in 100 mls @ 200 mls/hr 04/10/18 10:00 04/12/18 09:03 Rocephin/Ns 2 Gm/100 Ml IV 200 mls/hr Q24HR [facility] Administration Protocol Vancomycin HCl 1 gm in 250 mls @ 166.667 mls/hr 04/12/18 18:00 Vancomycin/Ns 1 Gm/250 Ml IV Q12H [facility] Ondansetron HCl 4 mg 04/09/18 21:28 Zofran IV Q8H PRN Nausea And Vomiting Risperidone 1 mg 04/10/18 10:00 04/12/18 09:02 Risperdal PO 1 mg DAILY [facility] Administration Sodium Chloride 10 ml 04/09/18 22:00 04/12/18 09:02 Sodium Chloride Flush Syringe 10 Ml IV 10 ml BID [facility] Administration Sodium Chloride 10 ml 04/09/18 21:28 Sodium Chloride Flush Syringe 10 Ml IV PRN PRN LINE FLUSH Warfarin Sodium 2.5 mg 04/12/18 17:00 Coumadin PO DAILY@1700 [facility]
[2018-04-12] MEDS: COUMADIN PO SCH (16:28)
[2018-04-12] MEDS: VANCOMYCIN/NS 1 GM/250 ML 1 GM/250 ML BAG IV SCH (17:00)
--- NOTE | 2018-04-12 20:01 | Progress Note ---
Assessment and Plan Assessment and plan: 68-year-old male with hx of Cerebral Palsy and multiple contracture, seizure disorder and a [facility] resident presenting to the ED with hypotension and fever. Patient was diagnosed with sepsis secondary to UTI AND also Hypernatremia. he was started on free watcher flushes with some noted improvement. He can discharged tomorrow if no new developments. The patient also grew GPC 1/2 bottles, appears to be more of a contaminate. Was placed on vancomycin in addition to Rocephin which can both be discontinued Septic Shock Acute Cystitis Toxic Metabolic Encephalopathy likely secondary to Cystitis with underlying Cerebral Palsy- Unsure of baseline Severe Hypernatremia Cerebral palsy Seizure Disorder Hypokalemia Severe protein Calorie Malnutrition Thrombocytopenia Dehydration-hypotensive Multiple Pressure Ulcers-present on admission Plan Continue supportive care Obtain better information from the long term in respect to patient eating and how much. Nursing following up Continue abx and follow cultures- GPC 1/2 repeat pending. Continue 1/2NS as adjusted by nephrology hyponatremia appears to be improving Replace potassium tolerating PO will remove Dobhoff Cultures reviewed ?CONTAMINANT Fall precautions DVT/GI prophy Plan discussed with nursing staff extensively History Interval history: Patient is seen today for: Sepsis secondary to UTI Seen and examined at bedside; 24hour events reviewed; nursing staff ; no adverse overnight events reported to me; patient with underlying history of cerebral palsy and is able to give any information. His tongue appears very dry on admission. Tolerating PO but needs assist with feeding. Hospitalist Physical - Physical exam Narrative exam: VITAL SIGNS: Reviewed. GENERAL: The patient appeared chronically ill-appearing markedly cachectic with temporal wasting. Vital signs as documented. HEAD: No signs of head trauma. EYES: Pupils are equal. Extraocular motions appear dry with crusting noted intact. EARS: Hearing grossly intact. MOUTH: Oropharynx is normal. NECK: No adenopathy, no JVD. CHEST: Chest with clear breath sounds bilaterally. No wheezes, rales, or rhonchi. CARDIAC: Regular rate and rhythm. S1 and S2, without murmurs, gallops, or rubs. VASCULAR: No Edema. Peripheral pulses normal and equal in all extremities. ABDOMEN: Soft, without detectable tenderness. No sign of distention. No rebound or guarding, and no masses palpated. Bowel Sounds normal. : Present indwelling Hogan catheter MUSCULOSKELETAL: Good range of motion of all major joints. Extremities without clubbing, cyanosis or edema. NEUROLOGIC EXAM: Alert and unable to assess orientation.. No focal sensory or strength deficits. PSYCHIATRIC: Unable to examine patient appears to follow some commands but true exam not clearly possible. SKIN: Multiple pressure ulcers including the right. Please see admission photographs for further details. Maculopapular rash generalized and ALSO upper extremities the lower extremities. - Constitutional Vitals: Temp Pulse Resp BP Pulse Ox 97.8 F 94 H 18 110/59 96 04/12/18 19:35 04/12/18 19:35 04/12/18 19:35 04/12/18 19:35 04/12/18 19:35 - Respiratory Respiratory: bilateral: CTA Results - Labs CBC & Chem 7: 04/12/18 05:24 04/12/18 17:51 Labs: Laboratory Last Values WBC 5.1 K/mm3 (4.5-11.0) 04/12/18 05:24 RBC 4.34 M/mm3 (3.65-5.03) 04/12/18 05:24 Hgb 13.5 gm/dl (11.8-15.2) 04/12/18 05:24 Hct 41.4 % (35.5-45.6) D 04/12/18 05:24 MCV 96 fl (84-94) H 04/12/18 05:24 MCH 31 pg (28-32) 04/12/18 05:24 MCHC 33 % (32-34) 04/12/18 05:24 RDW 14.7 % (13.2-15.2) 04/12/18 05:24 Plt Count 102 K/mm3 (140-440) L 04/12/18 05:24 Lymph % (Auto) TNR 04/11/18 06:33 [place] % (Auto) TNR 04/11/18 06:33 Eos % (Auto) Bending Frame Operator 04/11/18 08:20 Baso % (Auto) TNR 04/11/18 06:33 Lymph # TNR 04/11/18 06:33 [place] # TNR 04/11/18 06:33 Eos # TNR 04/11/18 06:33 Baso # TNR 04/11/18 06:33 Add Manual Diff Complete 04/12/18 05:24 Total Counted 100 04/12/18 05:24 Seg Neutrophils % TNR 04/11/18 06:33 Seg Neuts % (Manual) 35.0 % (40.0-70.0) L 04/12/18 05:24 Band Neutrophils % 0 % 04/12/18 05:24 Lymphocytes % (Manual) 40.0 % (13.4-35.0) H 04/12/18 05:24 Reactive Lymphs % (Man) 0 % 04/12/18 05:24 Monocytes % (Manual) 4.0 % (0.0-7.3) 04/12/18 05:24 Eosinophils % (Manual) 21.0 % (0.0-4.3) H 04/12/18 05:24 Basophils % (Manual) 0 % (0.0-1.8) 04/12/18 05:24 Metamyelocytes % 0 % 04/12/18 05:24 Myelocytes % 0 % 04/12/18 05:24 Promyelocytes % 0 % 04/12/18 05:24 Blast Cells % 0 % 04/12/18 05:24 Nucleated RBC % Not Reportable 04/12/18 05:24 Seg Neutrophils # TNR 04/11/18 06:33 Seg Neutrophils # Man 1.8 K/mm3 (1.8-7.7) 04/12/18 05:24 Band Neutrophils # 0.0 K/mm3 04/12/18 05:24 Lymphocytes # (Manual) 2.0 K/mm3 (1.2-5.4) 04/12/18 05:24 Abs React Lymphs (Man) 0.0 K/mm3 04/12/18 05:24 Monocytes # (Manual) 0.2 K/mm3 (0.0-0.8) 04/12/18 05:24 Eosinophils # (Manual) 1.1 K/mm3 (0.0-0.4) H 04/12/18 05:24 Basophils # (Manual) 0.0 K/mm3 (0.0-0.1) 04/12/18 05:24 Metamyelocytes # 0.0 K/mm3 04/12/18 05:24 Myelocytes # 0.0 K/mm3 04/12/18 05:24 Promyelocytes # 0.0 K/mm3 04/12/18 05:24 Blast Cells # 0.0 K/mm3 04/12/18 05:24 WBC Morphology Not Reportable 04/12/18 05:24 Hypersegmented Neuts Not Reportable 04/12/18 05:24 Hyposegmented Neuts Not Reportable 04/12/18 05:24 Hypogranular Neuts Not Reportable 04/12/18 05:24 Smudge Cells Not Reportable 04/12/18 05:24 Toxic Granulation Not Reportable 04/12/18 05:24 Toxic Vacuolation Not Reportable 04/12/18 05:24 Dohle Bodies Not Reportable 04/12/18 05:24 Pelger-Huet Anomaly Not Reportable 04/12/18 05:24 Ronak Rods Not Reportable 04/12/18 05:24 Platelet Estimate Cons 04/12/18 05:24 Clumped Platelets Not Reportable 04/12/18 05:24 Plt Clumps, EDTA Not Reportable 04/12/18 05:24 Large Platelets Not Reportable 04/12/18 05:24 Giant Platelets Not Reportable 04/12/18 05:24 Platelet Satelliting Not Reportable 04/12/18 05:24 Plt Morphology Comment Not Reportable 04/12/18 05:24 RBC Morphology Not Reportable 04/12/18 05:24 Dimorphic RBCs Not Reportable 04/12/18 05:24 Polychromasia Not Reportable 04/12/18 05:24 Hypochromasia Not Reportable 04/12/18 05:24 Poikilocytosis Not Reportable 04/12/18 05:24 Anisocytosis 1+ 04/12/18 05:24 Microcytosis Not Reportable 04/12/18 05:24 Macrocytosis Not Reportable 04/12/18 05:24 Spherocytes Not Reportable 04/12/18 05:24 Pappenheimer Bodies Not Reportable 04/12/18 05:24 Sickle Cells Not Reportable 04/12/18 05:24 Target Cells Not Reportable 04/12/18 05:24 Tear Drop Cells Not Reportable 04/12/18 05:24 Ovalocytes Not Reportable 04/12/18 05:24 Helmet Cells Not Reportable 04/12/18 05:24 Jacques-[place] Bodies Not Reportable 04/12/18 05:24 Comfort Rings Not Reportable 04/12/18 05:24 [place] Cells Not Reportable 04/12/18 05:24 Bite Cells Not Reportable 04/12/18 05:24 Crenated Cell Not Reportable 04/12/18 05:24 Elliptocytes Not Reportable 04/12/18 05:24 Acanthocytes (Spur) Not Reportable 04/12/18 05:24 Rouleaux Not Reportable 04/12/18 05:24 Hemoglobin C Crystals Not Reportable 04/12/18 05:24 Schistocytes Not Reportable 04/12/18 05:24 Malaria parasites Not Reportable 04/12/18 05:24 Meir Bodies Not Reportable 04/12/18 05:24 Hem Pathologist Commnt No 04/12/18 05:24 PT 28.8 Sec. (12.2-14.9) H 04/12/18 05:24 INR 2.67 (0.87-1.13) H 04/12/18 05:24 VBG pH 7.420 (7.320-7.420) 04/09/18 09:40 Sodium 149 mmol/L (137-145) H 04/12/18 17:51 Potassium 3.7 mmol/L (3.6-5.0) D 04/12/18 05:24 Chloride 113.1 mmol/L (98-107) H 04/12/18 05:24 Carbon Dioxide 24 mmol/L (22-30) 04/12/18 05:24 Anion Gap 14 mmol/L 04/12/18 05:24 BUN 5 mg/dL (9-20) L 04/12/18 05:24 Creatinine 0.2 mg/dL (0.8-1.5) L 04/12/18 05:24 Estimated GFR > 60 ml/min 04/12/18 05:24 BUN/Creatinine Ratio 25 % 04/12/18 05:24 Glucose 89 mg/dL (75-100) 04/12/18 05:24 Hemoglobin A1c 5.8 % (4-6) 04/09/18 21:36 Lactic Acid 1.00 mmol/L (0.7-2.0) 04/09/18 12:37 Calcium 8.0 mg/dL (8.4-10.2) L 04/12/18 05:24 Total Bilirubin 0.40 mg/dL (0.1-1.2) 04/10/18 02:43 AST 26 units/L (5-40) 04/10/18 02:43 ALT 16 units/L (7-56) 04/10/18 02:43 Alkaline Phosphatase 25 units/L (35-129) L 04/10/18 02:43 Total Protein 5.7 g/dL (6.3-8.2) L D 04/10/18 02:43 Albumin 2.7 g/dL (3.9-5) L 04/10/18 02:43 Albumin/Globulin Ratio 0.9 % 04/10/18 02:43 Urine Color Yellow (Yellow) 04/09/18 14:27 Urine Turbidity Clear (Clear) 04/09/18 14:27 Urine pH 5.0 (5.0-7.0) 04/09/18 14:27 Ur Specific [place] 1.029 (1.003-1.030) 04/09/18 14:27 Urine Protein 100 mg/dl mg/dL (Negative) 04/09/18 14:27 Urine Glucose (UA) Neg mg/dL (Negative) 04/09/18 14:27 Urine Ketones Tr mg/dL (Negative) 04/09/18 14:27 Urine Blood Lg (Negative) 04/09/18 14:27 Urine Nitrite Neg (Negative) 04/09/18 14:27 Urine Bilirubin Neg (Negative) 04/09/18 14:27 Urine Urobilinogen < 2.0 mg/dL (<2.0) 04/09/18 14:27 Ur Leukocyte Esterase Mod (Negative) 04/09/18 14:27 Urine WBC (Auto) 180.0 /HPF (0.0-6.0) H 04/09/18 14:27 Urine RBC (Auto) 24.0 /HPF (0.0-6.0) 04/09/18 14:27 Urine Mucus Few /HPF 04/09/18 14:27 Urine Osmolality 892 Mosm/kg 04/10/18 09:42 Urine Creatinine 94.1 mg/dL (0.1-20.0) H 04/10/18 09:42 Urine Sodium 16 mmol/L 04/10/18 09:42 Nutrition/Malnutrition Assess - Dietary Evaluation Nutrition/Malnutrition Findings: Nutrition Notes Start: 04/10/18 13:09 Freq: Status: Active Protocol: Document 04/12/18 14:25 ANA PAULA (Rec: 04/12/18 14:30 ANA PAULA SRW-FNSERVICE S1) Nutrition Notes Initial or Follow up Reassessment Other Pertinent Diagnosis Acute cystitis, CP, Dehydration, multiple pressure ulcers Current Diet Pureed with honey-thick liquids Labs/Tests Na 147 Medications Reviewed Height 5 ft 6 in Weight 65.77 kg [place] Body Weight (lbs) 142.0 BMI 23.3 Subjective/Other Information DHT remains in place for water flushes (300ml q4h). Pt tolerating PO intake and is consuming 100% of meals, per RN report. Percent of energy/protein needs met: 100% energy 93% pro Burn Absent Trauma Absent #1 Nutrition Diagnoses Inadequate oral intake As Evidenced by Signs and Symptoms pt consuming 100% of meals Diagnosis Progress(for reassessment Resolved documentation) Is patient on ventilator? No Is Patient Ambulatory and/or Out of Bed No REE-([place]-St. Jeor-confined to bed) 3972.084 Calculation Used for Recommendations [place]-St Jeor Additional Notes Pro needs 1.25-1.5g/k-99g /day Fluid needs 1ml/kcal Nutrition Intervention Change Diet Order: Continue current diet order Goal #1 PO intakes to meet 90-100% energy and pro needs Follow-Up By: 04/17/18 Additional Comments F/U: stable intakes, wt, Na lab
--- NOTE | 2018-04-12 21:34 | XRay Report ---
FINAL REPORT PROCEDURE: XR ABDOMEN 1V AP TECHNIQUE: Abdominal radiograph, single supine AP view. HISTORY: Dobhoff placement COMPARISON: No prior studies are available for comparison. FINDINGS: Bowel gas pattern:Nonobstructive. Masses or calcifications:7 millimeter calcification is noted on the left side at the level of L3-4. Bony structures:No significant abnormality. Other:Dobhoff tube is identified terminating in the stomach. An IVC filter is noted at the level of L3 and L4 IMPRESSION: Dobhoff tube is terminating in the stomach A 7 millimeter calcific density on the left side at L3-4 may represent a phlebolith. Differential sabino gnosis includes a left ureteral calculus.
[2018-04-13 05:38] LABS: Hematocrit 33.6 % (35.5-45.6); Hemoglobin 11.3 gm/dl (11.8-15.2); Mean Corpuscular HGB Conc 34 % (32-34); Mean Corpuscular Volume 93 fl (84-94); Platelet Count 109 K/mm3 (140-440); Red Blood Count 3.63 M/mm3 (3.65-5.03); Red Cell Distribution Width 14.2 % (13.2-15.2)
[2018-04-13 05:47] LABS: INR 2.76 (0.87-1.13)
[2018-04-13] MEDS: VANCOMYCIN/NS 1 GM/250 ML 1 GM/250 ML BAG IV SCH ×2 (05:49→17:56)
[2018-04-13 05:56] LABS: BUN/Creatinine Ratio 30; Blood Urea Nitrogen 6 mg/dL (9-20); Hemolysis Index 65
[2018-04-13 06:04] LABS: Calcium 7.6 mg/dL (8.4-10.2)
[2018-04-13 06:31] LABS: Band Neutrophils # (Manual) 0.4 K/mm3; Basophils % (Manual) 0 % (0.0-1.8); Total Cells Counted 100
[2018-04-13 06:32] LABS: Anisocytosis 1+
[2018-04-13 06:33] LABS: Platelet Estimate Consistent w Auto
[2018-04-13] MEDS: PEPCID IV SCH ×2 (09:07→23:02)
[2018-04-13] MEDS: ROCEPHIN/NS 2 GM/100 ML 2 GM/100 ML BAG IV SCH (09:07)
[2018-04-13] MEDS: SODIUM CHLORIDE FLUSH SYRINGE 10 ML IV SCH ×2 (09:08→23:03)
[2018-04-13] MEDS: COLACE PO SCH ×2 (09:09→23:02)
[2018-04-13] MEDS: RisperDAL PO SCH (09:09)
--- NOTE | 2018-04-13 13:27 | Progress Note ---
Assessment and Plan Assessment and plan: Assessment and plan: 68-year-old male with hx of Cerebral Palsy and multiple contracture, seizure disorder and a [facility] presenting to the ED with hypotension and fever. Patient was diagnosed with sepsis secondary to UTI AND also Hypernatremia. he was started on free watcher flushes with some noted improvement. He can discharged tomorrow if no new developments. The patient also grew GPC 1/2 bottles, appears to be more of a contaminate. Was placed on vancomycin in addition to Rocephin which can both be discontinued Septic Shock Acute Cystitis Toxic Metabolic Encephalopathy likely secondary to Cystitis with underlying Cerebral Palsy- Unsure of baseline Severe Hypernatremia Cerebral palsy Seizure Disorder Hypokalemia Severe protein Calorie Malnutrition Thrombocytopenia Dehydration-hypotensive Multiple Pressure Ulcers-present on admission Bacteremia with coagulase negative staph Plan Continue supportive care Continue Abx may consult ID Physician to evaluate bacteremia Continue 1/2NS as adjusted by nephrology hyponatremia appears to be improving Replace potassium tolerating PO will remove Dobhoff Cultures reviewed ?CONTAMINANT Fall precautions DVT prophylaxis - On Coumadin History Interval history: No more fever in 48 hrs Hospitalist Physical - Physical exam Narrative exam: GENERAL: Ill looking, not in acute distress. HEAD: No signs of head trauma. EYES: Pupils are equal. Extraocular motions appear dry with crusting noted intact. EARS: Hearing grossly intact. MOUTH: Oropharynx is normal. NECK: No adenopathy, no JVD. CHEST: Clear to auscultation bilaterally, no wheezes, rales, or rhonchi. CARDIAC: Regular rate and rhythm. S1 and S2, without murmurs, gallops, or rubs. VASCULAR: No Edema. Peripheral pulses normal and equal in all extremities. ABDOMEN: Soft, non tender, no distension, ness. No sign of distention. No rebound or guarding, and no masses palpated. Bowel Sounds normal. : Present indwelling Hogan catheter MUSCULOSKELETAL: Good range of motion of all major joints. Extremities without clubbing, cyanosis or edema. NEUROLOGIC EXAM: Alert PSYCHIATRIC: Cannot evaluate. SKIN: Multiple pressure ulcers ,Maculopapular rash generalized and ALSO upper extremities the lower extremities. - Constitutional Vitals: Temp Pulse Resp BP Pulse Ox 98.1 F 96 H 20 121/58 98 04/13/18 07:25 04/13/18 07:25 04/13/18 07:25 04/13/18 07:25 04/13/18 07:25 General appearance: Present: no acute distress Results - Labs CBC & Chem 7: 04/13/18 04:58 04/13/18 04:58 Labs: Laboratory Last Values WBC 7.0 K/mm3 (4.5-11.0) 04/13/18 04:58 RBC 3.63 M/mm3 (3.65-5.03) L 04/13/18 04:58 Hgb 11.3 gm/dl (11.8-15.2) L 04/13/18 04:58 Hct 33.6 % (35.5-45.6) L D 04/13/18 04:58 MCV 93 fl (84-94) 04/13/18 04:58 MCH 31 pg (28-32) 04/13/18 04:58 MCHC 34 % (32-34) 04/13/18 04:58 RDW 14.2 % (13.2-15.2) 04/13/18 04:58 Plt Count 109 K/mm3 (140-440) L 04/13/18 04:58 Lymph % (Auto) TNR 04/11/18 06:33 [place] % (Auto) TNR 04/11/18 06:33 Eos % (Auto) Hiv/Aids Care Nurse 04/13/18 04:58 Baso % (Auto) TNR 04/11/18 06:33 Lymph # TNR 04/11/18 06:33 [place] # TNR 04/11/18 06:33 Eos # TNR 04/11/18 06:33 Baso # TNR 04/11/18 06:33 Add Manual Diff Complete 04/13/18 04:58 Total Counted 100 04/13/18 04:58 Seg Neutrophils % TNR 04/11/18 06:33 Seg Neuts % (Manual) 34.0 % (40.0-70.0) L 04/13/18 04:58 Band Neutrophils % 6.0 % 04/13/18 04:58 Lymphocytes % (Manual) 38.0 % (13.4-35.0) H 04/13/18 04:58 Reactive Lymphs % (Man) 0 % 04/13/18 04:58 Monocytes % (Manual) 3.0 % (0.0-7.3) 04/13/18 04:58 Eosinophils % (Manual) 19.0 % (0.0-4.3) H 04/13/18 04:58 Basophils % (Manual) 0 % (0.0-1.8) 04/13/18 04:58 Metamyelocytes % 0 % 04/13/18 04:58 Myelocytes % 0 % 04/13/18 04:58 Promyelocytes % 0 % 04/13/18 04:58 Blast Cells % 0 % 04/13/18 04:58 Nucleated RBC % Not Reportable 04/13/18 04:58 Seg Neutrophils # TNR 04/11/18 06:33 Seg Neutrophils # Man 2.4 K/mm3 (1.8-7.7) 04/13/18 04:58 Band Neutrophils # 0.4 K/mm3 04/13/18 04:58 Lymphocytes # (Manual) 2.7 K/mm3 (1.2-5.4) 04/13/18 04:58 Abs React Lymphs (Man) 0.0 K/mm3 04/13/18 04:58 Monocytes # (Manual) 0.2 K/mm3 (0.0-0.8) 04/13/18 04:58 Eosinophils # (Manual) 1.3 K/mm3 (0.0-0.4) H 04/13/18 04:58 Basophils # (Manual) 0.0 K/mm3 (0.0-0.1) 04/13/18 04:58 Metamyelocytes # 0.0 K/mm3 04/13/18 04:58 Myelocytes # 0.0 K/mm3 04/13/18 04:58 Promyelocytes # 0.0 K/mm3 04/13/18 04:58 Blast Cells # 0.0 K/mm3 04/13/18 04:58 WBC Morphology Not Reportable 04/13/18 04:58 Hypersegmented Neuts Not Reportable 04/13/18 04:58 Hyposegmented Neuts Not Reportable 04/13/18 04:58 Hypogranular Neuts Not Reportable 04/13/18 04:58 Smudge Cells Not Reportable 04/13/18 04:58 Toxic Granulation Not Reportable 04/13/18 04:58 Toxic Vacuolation Not Reportable 04/13/18 04:58 Dohle Bodies Not Reportable 04/13/18 04:58 Pelger-Huet Anomaly Not Reportable 04/13/18 04:58 Ronak Rods Not Reportable 04/13/18 04:58 Platelet Estimate Consistent w auto 04/13/18 04:58 Clumped Platelets Not Reportable 04/13/18 04:58 Plt Clumps, EDTA Not Reportable 04/13/18 04:58 Large Platelets Not Reportable 04/13/18 04:58 Giant Platelets Not Reportable 04/13/18 04:58 Platelet Satelliting Not Reportable 04/13/18 04:58 Plt Morphology Comment Not Reportable 04/13/18 04:58 RBC Morphology Not Reportable 04/13/18 04:58 Dimorphic RBCs Not Reportable 04/13/18 04:58 Polychromasia Not Reportable 04/13/18 04:58 Hypochromasia Not Reportable 04/13/18 04:58 Poikilocytosis Not Reportable 04/13/18 04:58 Anisocytosis 1+ 04/13/18 04:58 Microcytosis Not Reportable 04/13/18 04:58 Macrocytosis Not Reportable 04/13/18 04:58 Spherocytes Not Reportable 04/13/18 04:58 Pappenheimer Bodies Not Reportable 04/13/18 04:58 Sickle Cells Not Reportable 04/13/18 04:58 Target Cells Not Reportable 04/13/18 04:58 Tear Drop Cells Not Reportable 04/13/18 04:58 Ovalocytes Not Reportable 04/13/18 04:58 Helmet Cells Not Reportable 04/13/18 04:58 Jacques-[place] Bodies Not Reportable 04/13/18 04:58 [place] Rings Not Reportable 04/13/18 04:58 [place] Cells Not Reportable 04/13/18 04:58 Bite Cells Not Reportable 04/13/18 04:58 Crenated Cell Not Reportable 04/13/18 04:58 Elliptocytes Few 04/13/18 04:58 Acanthocytes (Spur) Not Reportable 04/13/18 04:58 Rouleaux Not Reportable 04/13/18 04:58 Hemoglobin C Crystals Not Reportable 04/13/18 04:58 Schistocytes Not Reportable 04/13/18 04:58 Malaria parasites Not Reportable 04/13/18 04:58 Meir Bodies Not Reportable 04/13/18 04:58 Hem Pathologist Commnt No 04/13/18 04:58 PT 29.5 Sec. (12.2-14.9) H 04/13/18 05:00 INR 2.76 (0.87-1.13) H 04/13/18 05:00 VBG pH 7.420 (7.320-7.420) 04/09/18 09:40 Sodium 147 mmol/L (137-145) H 04/13/18 04:58 Potassium 4.6 mmol/L (3.6-5.0) D 04/13/18 04:58 Chloride 114.9 mmol/L (98-107) H 04/13/18 04:58 Carbon Dioxide 25 mmol/L (22-30) 04/13/18 04:58 Anion Gap 12 mmol/L 04/13/18 04:58 BUN 6 mg/dL (9-20) L 04/13/18 04:58 Creatinine 0.2 mg/dL (0.8-1.5) L 04/13/18 04:58 Estimated GFR > 60 ml/min 04/13/18 04:58 BUN/Creatinine Ratio 30 % 04/13/18 04:58 Glucose 97 mg/dL (75-100) 04/13/18 04:58 Hemoglobin A1c 5.8 % (4-6) 04/09/18 21:36 Lactic Acid 1.00 mmol/L (0.7-2.0) 04/09/18 12:37 Calcium 7.6 mg/dL (8.4-10.2) L 04/13/18 04:58 Total Bilirubin 0.40 mg/dL (0.1-1.2) 04/10/18 02:43 AST 26 units/L (5-40) 04/10/18 02:43 ALT 16 units/L (7-56) 04/10/18 02:43 Alkaline Phosphatase 25 units/L (35-129) L 04/10/18 02:43 Total Protein 5.7 g/dL (6.3-8.2) L D 04/10/18 02:43 Albumin 2.7 g/dL (3.9-5) L 04/10/18 02:43 Albumin/Globulin Ratio 0.9 % 04/10/18 02:43 Urine Color Yellow (Yellow) 04/09/18 14:27 Urine Turbidity Clear (Clear) 04/09/18 14:27 Urine pH 5.0 (5.0-7.0) 04/09/18 14:27 Ur Specific [place] 1.029 (1.003-1.030) 04/09/18 14:27 Urine Protein 100 mg/dl mg/dL (Negative) 04/09/18 14:27 Urine Glucose (UA) Neg mg/dL (Negative) 04/09/18 14:27 Urine Ketones Tr mg/dL (Negative) 04/09/18 14:27 Urine Blood Lg (Negative) 04/09/18 14:27 Urine Nitrite Neg (Negative) 04/09/18 14:27 Urine Bilirubin Neg (Negative) 04/09/18 14:27 Urine Urobilinogen < 2.0 mg/dL (<2.0) 04/09/18 14:27 Ur Leukocyte Esterase Mod (Negative) 04/09/18 14:27 Urine WBC (Auto) 180.0 /HPF (0.0-6.0) H 04/09/18 14:27 Urine RBC (Auto) 24.0 /HPF (0.0-6.0) 04/09/18 14:27 Urine Mucus Few /HPF 04/09/18 14:27 Urine Osmolality 892 Mosm/kg 04/10/18 09:42 Urine Creatinine 94.1 mg/dL (0.1-20.0) H 04/10/18 09:42 Urine Sodium 16 mmol/L 04/10/18 09:42 Nutrition/Malnutrition Assess - Dietary Evaluation Nutrition/Malnutrition Findings: Nutrition Notes Start: 04/10/18 13:09 Freq: Status: Active Protocol: Document 04/12/18 14:25 [facility] (Rec: 04/12/18 14:30 [facility] SRW- [email or web address]) Nutrition Notes Initial or Follow up Reassessment Other Pertinent Diagnosis Acute cystitis, CP, Dehydration, multiple pressure ulcers Current Diet Pureed with honey-thick liquids Labs/Tests Na 147 Medications Reviewed Height 5 ft 6 in Weight 65.77 kg [place] Body Weight (lbs) 142.0 BMI 23.3 Subjective/Other Information DHT remains in place for water flushes (300ml q4h). Pt tolerating PO intake and is consuming 100% of meals, per RN report. Percent of energy/protein needs met: 100% energy 93% pro Burn Absent Trauma Absent #1 Nutrition Diagnoses Inadequate oral intake As Evidenced by Signs and Symptoms pt consuming 100% of meals Diagnosis Progress(for reassessment Resolved documentation) Is patient on ventilator? No Is Patient Ambulatory and/or Out of Bed No REE-([place]-St. Jeor-confined to bed) 1692.084 [facility]culation [facility] Additional Notes Pro needs 1.25-1.5g/k-99g /day Fluid needs 1ml/kcal Nutrition Intervention Change Diet Order: Continue current diet order Goal #1 PO intakes to meet 90-100% energy and pro needs Follow-Up By: 04/17/18 Additional Comments F/U: stable intakes, wt, Na lab
--- NOTE | 2018-04-13 14:56 | Progress Note ---
Assessment and Plan Severe Hypernatremia secondary to low oral intake Hypokalemia Hypotension Acute Cystitis Acute Metabolic Encephalopathy Severe Hypernatremia Cerebral palsy Seizure Disorder Hypokalemia Plan: - Serum sodium level was 147 today, yesterday's serum sodium level 149 - On water flushes to 300 ml Q4hrs via Dobhoff tube - D5W infusion stopped - Urine osm and sodium consistent with volume depletion - Can bolus with NS as needed for hypotension - Replete potassium as needed - Strict intake and output - Intake= 3220 ml Output= 2252 ml (Net= 968 ml) - Renal plan d/w Dr Walsh Subjective Date of service: 04/13/18 Principal diagnosis: hypernatremia Interval history: Pt seen in bed, nonverbal, no acute distress, no family at bedside Objective - Vital Signs Vital signs: Vital Signs - 12hr 04/13/18 04/13/18 04/13/18 03:14 07:25 13:27 Temperature 97.9 F 98.1 F Pulse Rate 61 96 H 83 Respiratory 18 20 Rate Blood Pressure 86/41 121/58 O2 Sat by Pulse 96 98 98 Oximetry - General Appearance General appearance: frail EENT: ATNC Neck: no JVD Respiratory: Present: Decreased Breath Sounds Cardiology: regular, S1S2 Gastrointestinal: normoactive bowel sounds (Dobhoff tube in place) Integumentary: warm and dry Neurologic: other (opens eyes, nonverbal) Musculoskeletal: other (trace edema to BLE) Psychiatric: other (unable to assess) - Lab 04/13/18 04:58 04/13/18 04:58 Most recent lab results Calcium 7.6 mg/dL (8.4-10.2) L 04/13/18 04:58 Urine Creatinine 94.1 mg/dL (0.1-20.0) H 04/10/18 09:42 Urine Sodium 16 mmol/L 04/10/18 09:42 Medications & Allergies - Medications Allergies/Adverse Reactions: Allergies No Known Allergies Allergy (Verified 02/28/17 12:30) Home Medications: Home Medications Medication Instructions Recorded Confirmed Last Taken Type Divalproex ER [Depakote ER] 500 mg PO HS 04/11/13 04/12/18 02/27/17 20:00 History Ranitidine HCl 150 mg PO DAILY 02/12/15 04/12/18 02/27/17 19:00 History RisperiDONE 1 mg PO DAILY 02/12/15 04/12/18 02/27/17 20:00 History Ascorbic Acid [Vitamin C] 500 mg PO DAILY 09/27/15 04/12/18 02/28/17 08:00 History Divalproex Sprinkle [Depakote 250 mg PO BID capsule 03/13/17 04/12/18 Unknown Rx Sprinkle] Multivitamin Tab [Multiple Vitamin 1 each PO DAILY tablet 03/13/17 04/12/18 Unknown Rx TAB (Theragran)] Docusate Sodium [Colace CAP] 100 mg PO BID MDD CONSTIPATION 04/09/18 04/12/18 Unknown History Warfarin [Coumadin] 5 mg PO HS 04/09/18 04/12/18 Unknown History Active Medications: Generic Name Dose Route Start Last Admin Trade Name Freq PRN Reason Stop Dose Admin Acetaminophen 650 mg 04/09/18 21:28 Tylenol PO Q4H PRN Pain MILD(1-3)/Fever >100.5/MICHELLE Divalproex Sodium 500 mg 04/10/18 22:00 04/12/18 21:32 Depakote Er PO 500 mg HS TALIB Administration Divalproex Sodium 250 mg 04/10/18 08:00 04/13/18 08:15 Depakote Sprinkle PO 250 mg BID@0800,1700 TALIB Administration Docusate Sodium 100 mg 04/10/18 10:00 04/13/18 09:09 Colace PO Not Given BID TALIB Famotidine 20 mg 04/09/18 22:00 04/13/18 09:07 Pepcid IV 20 mg BID TALIB Administration Hydromorphone HCl 0.5 mg 04/09/18 21:28 Dilaudid IV Q3H PRN Pain , Severe (7-10) Ceftriaxone Sodium 2 gm in 100 mls @ 200 mls/hr 04/10/18 10:00 04/13/18 09:37 Rocephin/Ns 2 Gm/100 Ml IV Infused Q24HR TALIB Infusion Protocol Vancomycin HCl 1 gm in 250 mls @ 166.667 mls/hr 04/12/18 18:00 04/13/18 07:20 Vancomycin/Ns 1 Gm/250 Ml IV Infused Q12H TALIB Infusion Ondansetron HCl 4 mg 04/09/18 21:28 Zofran IV Q8H PRN Nausea And Vomiting Risperidone 1 mg 04/10/18 10:00 04/13/18 09:09 Risperdal PO 1 mg DAILY TALIB Administration Sodium Chloride 10 ml 04/09/18 22:00 04/13/18 09:08 Sodium Chloride Flush Syringe 10 Ml IV 10 ml BID TALIB Administration Sodium Chloride 10 ml 04/09/18 21:28 Sodium Chloride Flush Syringe 10 Ml IV PRN PRN LINE FLUSH Warfarin Sodium 2.5 mg 04/12/18 17:00 04/12/18 16:28 Coumadin PO 2.5 mg DAILY@1700 TALIB Administration
[2018-04-13] MEDS: COUMADIN PO SCH (17:56)
[2018-04-14 04:59] LABS: Hematocrit 37.4 % (35.5-45.6); Hemoglobin 12.2 gm/dl (11.8-15.2); Mean Corpuscular HGB Conc 33 % (32-34); Mean Corpuscular Volume 95 fl (84-94); Red Blood Count 3.93 M/mm3 (3.65-5.03); Red Cell Distribution Width 14.8 % (13.2-15.2)
[2018-04-14 05:07] LABS: BUN/Creatinine Ratio 23; Blood Urea Nitrogen 7 mg/dL (9-20); Calcium 8.1 mg/dL (8.4-10.2); Hemolysis Index 59; INR 3.64 (0.87-1.13)
[2018-04-14 05:16] LABS: Platelet Count 78 K/mm3 (140-440)
[2018-04-14] MEDS: VANCOMYCIN/NS 1 GM/250 ML 1 GM/250 ML BAG IV SCH (05:40)
[2018-04-14 06:41] LABS: Total Cells Counted 100
[2018-04-14 06:42] LABS: Anisocytosis 1+; Band Neutrophils # (Manual) 0.1 K/mm3; Basophils % (Manual) 0 % (0.0-1.8); Platelet Estimate Consistent w Auto
[2018-04-14] MEDS: ROCEPHIN/NS 2 GM/100 ML 2 GM/100 ML BAG IV SCH (09:02)
[2018-04-14] MEDS: RisperDAL PO SCH (09:02)
[2018-04-14] MEDS: PEPCID PO SCH ×2 (09:02→22:02)
[2018-04-14] MEDS: SODIUM CHLORIDE FLUSH SYRINGE 10 ML IV SCH ×2 (09:04→22:01)
[2018-04-14] MEDS: COLACE PO SCH ×2 (09:04→22:02)
--- NOTE | 2018-04-14 10:52 | Progress Note ---
Assessment and Plan Assessment and plan: Assessment and plan: 68-year-old male with hx of Cerebral Palsy and multiple contracture, seizure disorder and a [facility] resident presenting to the ED with hypotension and fever. Patient was diagnosed with sepsis secondary to UTI and also Hypernatremia. he was started on free watcher flushes with some noted improvement. Blood cultures growing Coag neg staph therefore ID consulted Septic Shock Acute Cystitis Toxic Metabolic Encephalopathy likely secondary to Cystitis with underlying Cerebral Palsy- Unsure of baseline Severe Hypernatremia Cerebral palsy Seizure Disorder Hypokalemia Severe protein Calorie Malnutrition Thrombocytopenia Dehydration-hypotensive Multiple Pressure Ulcers-present on admission Bacteremia with coagulase negative staph Plan Continue supportive care Continue Abx may consult ID Physician to evaluate bacteremia Continue 1/2NS as adjusted by nephrology hyponatremia appears to be improving Replace potassium tolerating PO will remove Dobhoff Cultures reviewed ?CONTAMINANT Consulted ID Fall precautions DVT prophylaxis - On Coumadin History Interval history: No more fever Hospitalist Physical - Physical exam Narrative exam: GENERAL: Ill looking, not in acute distress. HEAD: No signs of head trauma. EYES: Pupils are equal. Extraocular motions appear dry with crusting noted in tact. EARS: Hearing grossly intact. MOUTH: Oropharynx is normal. NECK: No adenopathy, no JVD. CHEST: Clear to auscultation bilaterally, no wheezes, rales, or rhonchi. CARDIAC: Regular rate and rhythm. S1 and S2, without murmurs, gallops, or rubs. VASCULAR: No Edema. Peripheral pulses normal and equal in all extremities. ABDOMEN: Soft, non tender, no distension, ness. No sign of distention. No rebound or guarding, and no masses palpated. Bowel Sounds normal. : Present indwelling Hogan catheter MUSCULOSKELETAL: Good range of motion of all major joints. Extremities without clubbing, cyanosis or edema. NEUROLOGIC EXAM: Alert PSYCHIATRIC: Cannot evaluate. SKIN: Multiple pressure ulcers ,Maculopapular rash generalized and ALSO upper extremities the lower extremities. - Constitutional Vitals: Temp Pulse Resp BP Pulse Ox 98.8 F 60 16 89/54 100 04/14/18 08:06 04/14/18 08:06 04/14/18 08:06 04/14/18 08:06 04/14/18 08:06 General appearance: Present: no acute distress Results - Labs CBC & Chem 7: 04/15/18 05:05 04/15/18 05:05 Labs: Laboratory Last Values WBC 6.5 K/mm3 (4.5-11.0) 04/14/18 04:38 RBC 3.93 M/mm3 (3.65-5.03) 04/14/18 04:38 Hgb 12.2 gm/dl (11.8-15.2) 04/14/18 04:38 Hct 37.4 % (35.5-45.6) 04/14/18 04:38 MCV 95 fl (84-94) H 04/14/18 04:38 MCH 31 pg (28-32) 04/14/18 04:38 MCHC 33 % (32-34) 04/14/18 04:38 RDW 14.8 % (13.2-15.2) 04/14/18 04:38 Plt Count 78 K/mm3 (140-440) L 04/14/18 04:38 Lymph % (Auto) TNR 04/11/18 06:33 Charles % (Auto) TNR 04/11/18 06:33 Eos % (Auto) Warp Knitter Helper 04/14/18 04:38 Baso % (Auto) TNR 04/11/18 06:33 Lymph # TNR 04/11/18 06:33 Charles # TNR 04/11/18 06:33 Eos # TNR 04/11/18 06:33 Baso # TNR 04/11/18 06:33 Add Manual Diff Complete 04/14/18 04:38 Total Counted 100 04/14/18 04:38 Seg Neutrophils % TNR 04/11/18 06:33 Seg Neuts % (Manual) 46.0 % (40.0-70.0) 04/14/18 04:38 Band Neutrophils % 2.0 % 04/14/18 04:38 Lymphocytes % (Manual) 36.0 % (13.4-35.0) H 04/14/18 04:38 Reactive Lymphs % (Man) 1.0 % 04/14/18 04:38 Monocytes % (Manual) 2.0 % (0.0-7.3) 04/14/18 04:38 Eosinophils % (Manual) 13.0 % (0.0-4.3) H 04/14/18 04:38 Basophils % (Manual) 0 % (0.0-1.8) 04/14/18 04:38 Metamyelocytes % 0 % 04/14/18 04:38 Myelocytes % 0 % 04/14/18 04:38 Promyelocytes % 0 % 04/14/18 04:38 Blast Cells % 0 % 04/14/18 04:38 Nucleated RBC % Not Reportable 04/14/18 04:38 Seg Neutrophils # TNR 04/11/18 06:33 Seg Neutrophils # Man 3.0 K/mm3 (1.8-7.7) 04/14/18 04:38 Band Neutrophils # 0.1 K/mm3 04/14/18 04:38 Lymphocytes # (Manual) 2.3 K/mm3 (1.2-5.4) 04/14/18 04:38 Abs React Lymphs (Man) 0.1 K/mm3 04/14/18 04:38 Monocytes # (Manual) 0.1 K/mm3 (0.0-0.8) 04/14/18 04:38 Eosinophils # (Manual) 0.8 K/mm3 (0.0-0.4) H 04/14/18 04:38 Basophils # (Manual) 0.0 K/mm3 (0.0-0.1) 04/14/18 04:38 Metamyelocytes # 0.0 K/mm3 04/14/18 04:38 Myelocytes # 0.0 K/mm3 04/14/18 04:38 Promyelocytes # 0.0 K/mm3 04/14/18 04:38 Blast Cells # 0.0 K/mm3 04/14/18 04:38 WBC Morphology Not Reportable 04/14/18 04:38 Hypersegmented Neuts Not Reportable 04/14/18 04:38 Hyposegmented Neuts Not Reportable 04/14/18 04:38 Hypogranular Neuts Not Reportable 04/14/18 04:38 Smudge Cells Not Reportable 04/14/18 04:38 Toxic Granulation Not Reportable 04/14/18 04:38 Toxic Vacuolation Not Reportable 04/14/18 04:38 Dohle Bodies Not Reportable 04/14/18 04:38 Pelger-Huet Anomaly Not Reportable 04/14/18 04:38 Ronak Rods Not Reportable 04/14/18 04:38 Platelet Estimate Consistent w auto 04/14/18 04:38 Clumped Platelets Not Reportable 04/14/18 04:38 Plt Clumps, EDTA Not Reportable 04/14/18 04:38 Large Platelets Not Reportable 04/14/18 04:38 Giant Platelets Not Reportable 04/14/18 04:38 Platelet Satelliting Not Reportable 04/14/18 04:38 Plt Morphology Comment Not Reportable 04/14/18 04:38 RBC Morphology Not Reportable 04/14/18 04:38 Dimorphic RBCs Not Reportable 04/14/18 04:38 Polychromasia Not Reportable 04/14/18 04:38 Hypochromasia Not Reportable 04/14/18 04:38 Poikilocytosis Not Reportable 04/14/18 04:38 Anisocytosis 1+ 04/14/18 04:38 Microcytosis Not Reportable 04/14/18 04:38 Macrocytosis Not Reportable 04/14/18 04:38 Spherocytes Not Reportable 04/14/18 04:38 Pappenheimer Bodies Not Reportable 04/14/18 04:38 Sickle Cells Not Reportable 04/14/18 04:38 Target Cells Not Reportable 04/14/18 04:38 Tear Drop Cells Not Reportable 04/14/18 04:38 Ovalocytes Not Reportable 04/14/18 04:38 Helmet Cells Not Reportable 04/14/18 04:38 [place] Bodies Not Reportable 04/14/18 04:38 [place] Rings Not Reportable 04/14/18 04:38 [place] Cells Not Reportable 04/14/18 04:38 Bite Cells Not Reportable 04/14/18 04:38 Crenated Cell Not Reportable 04/14/18 04:38 Elliptocytes Few 04/14/18 04:38 Acanthocytes (Spur) Not Reportable 04/14/18 04:38 Rouleaux Not Reportable 04/14/18 04:38 Hemoglobin C Crystals Not Reportable 04/14/18 04:38 Schistocytes Not Reportable 04/14/18 04:38 Malaria parasites Not Reportable 04/14/18 04:38 Meir Bodies Not Reportable 04/14/18 04:38 Hem Pathologist Commnt No 04/14/18 04:38 PT 36.5 Sec. (12.2-14.9) H 04/14/18 04:38 INR 3.64 (0.87-1.13) H 04/14/18 04:38 VBG pH 7.420 (7.320-7.420) 04/09/18 09:40 Sodium 142 mmol/L (137-145) 04/14/18 04:38 Potassium 4.3 mmol/L (3.6-5.0) 04/14/18 04:38 Chloride 110.7 mmol/L (98-107) H 04/14/18 04:38 Carbon Dioxide 25 mmol/L (22-30) 04/14/18 04:38 Anion Gap 11 mmol/L 04/14/18 04:38 BUN 7 mg/dL (9-20) L 04/14/18 04:38 Creatinine 0.3 mg/dL (0.8-1.5) L 04/14/18 04:38 Estimated GFR > 60 ml/min 04/14/18 04:38 BUN/Creatinine Ratio 23 % 04/14/18 04:38 Glucose 94 mg/dL (75-100) 04/14/18 04:38 Hemoglobin A1c 5.8 % (4-6) 04/09/18 21:36 Lactic Acid 1.00 mmol/L (0.7-2.0) 04/09/18 12:37 Calcium 8.1 mg/dL (8.4-10.2) L 04/14/18 04:38 Total Bilirubin 0.40 mg/dL (0.1-1.2) 04/10/18 02:43 AST 26 units/L (5-40) 04/10/18 02:43 ALT 16 units/L (7-56) 04/10/18 02:43 Alkaline Phosphatase 25 units/L (35-129) L 04/10/18 02:43 Total Protein 5.7 g/dL (6.3-8.2) L D 04/10/18 02:43 Albumin 2.7 g/dL (3.9-5) L 04/10/18 02:43 Albumin/Globulin Ratio 0.9 % 04/10/18 02:43 Urine Color Yellow (Yellow) 04/09/18 14:27 Urine Turbidity Clear (Clear) 04/09/18 14:27 Urine pH 5.0 (5.0-7.0) 04/09/18 14:27 Ur Specific [place] 1.029 (1.003-1.030) 04/09/18 14:27 Urine Protein 100 mg/dl mg/dL (Negative) 04/09/18 14:27 Urine Glucose (UA) Neg mg/dL (Negative) 04/09/18 14:27 Urine Ketones Tr mg/dL (Negative) 04/09/18 14:27 Urine Blood Lg (Negative) 04/09/18 14:27 Urine Nitrite Neg (Negative) 04/09/18 14:27 Urine Bilirubin Neg (Negative) 04/09/18 14:27 Urine Urobilinogen < 2.0 mg/dL (<2.0) 04/09/18 14:27 Ur Leukocyte Esterase Mod (Negative) 04/09/18 14:27 Urine WBC (Auto) 180.0 /HPF (0.0-6.0) H 04/09/18 14:27 Urine RBC (Auto) 24.0 /HPF (0.0-6.0) 04/09/18 14:27 Urine Mucus Few /HPF 04/09/18 14:27 Urine Osmolality 892 Mosm/kg 04/10/18 09:42 Urine Creatinine 94.1 mg/dL (0.1-20.0) H 04/10/18 09:42 Urine Sodium 16 mmol/L 04/10/18 09:42 Nutrition/Malnutrition Assess - Dietary Evaluation Nutrition/Malnutrition Findings: Nutrition Notes Start: 04/10/18 13:09 Freq: Status: Active Protocol: Document 04/12/18 14:25 ANA PAULA (Rec: 04/12/18 14:30 [facility] [id number]) Nutrition Notes Initial or Follow up Reassessment Other Pertinent Diagnosis Acute cystitis, CP, Dehydration, multiple pressure ulcers Current Diet Pureed with honey-thick liquids Labs/Tests Na 147 Medications Reviewed Height 5 ft 6 in Weight 65.77 kg [place] Body Weight (lbs) 142.0 BMI 23.3 Subjective/Other Information DHT remains in place for water flushes (300ml q4h). Pt tolerating PO intake and is consuming 100% of meals, per RN report. Percent of energy/protein needs met: 100% energy 93% pro Burn Absent Trauma Absent #1 Nutrition Diagnoses Inadequate oral intake As Evidenced by Signs and Symptoms pt consuming 100% of meals Diagnosis Progress(for reassessment Resolved documentation) Is patient on ventilator? No Is Patient Ambulatory and/or Out of Bed No REE-([facility]-confined to bed) [phone] Calculation Used for Recommendations [facility] Additional Notes Pro needs 1.25-1.5g/k-99g /day Fluid needs 1ml/kcal Nutrition Intervention Change Diet Order: Continue current diet order Goal #1 PO intakes to meet 90-100% energy and pro needs Follow-Up By: 04/17/18 Additional Comments F/U: stable intakes, wt, Na lab
--- NOTE | 2018-04-14 12:19 | Progress Note ---
Assessment and Plan Severe Hypernatremia secondary to low oral intake Hypokalemia Hypotension Acute Cystitis Acute Metabolic Encephalopathy Severe Hypernatremia Cerebral palsy Seizure Disorder Hypokalemia Plan: - Serum sodium level was 142 today, yesterday's serum sodium level 147 - On water flushes to 300 ml Q4hrs via Dobhoff tube - D5W infusion stopped - Urine osm and sodium consistent with volume depletion - Can bolus with NS as needed for hypotension - Replete potassium as needed - Strict intake and output - Intake= 1060 ml Output= 2100 ml (Net= -1040 ml) - Hogan Catheter: Yes - Renal plan d/w Dr Walsh Subjective Date of service: 04/14/18 Principal diagnosis: hypernatremia Interval history: Pt seen in bed, nonverbal, no family at bedside Objective - Vital Signs Vital signs: Vital Signs - 12hr 04/14/18 04/14/18 04/14/18 03:06 08:06 10:00 Temperature 98.6 F 98.8 F Pulse Rate 60 Pulse Rate [ 60 From Monitor] Respiratory 22 16 16 Rate Blood Pressure 92/52 89/54 O2 Sat by Pulse 100 Oximetry - General Appearance General appearance: frail (nonverbal) EENT: ATNC Neck: no JVD Respiratory: Present: Decreased Breath Sounds Cardiology: regular, S1S2 Gastrointestinal: normoactive bowel sounds (dobhoff tube intact), other (: Hogan to gravity draining yellow urine) Integumentary: warm and dry Neurologic: other (opens eyes, nonverbal) Musculoskeletal: other (no edema to BLE) - Lab 04/14/18 04:38 04/14/18 04:38 Most recent lab results Calcium 8.1 mg/dL (8.4-10.2) L 04/14/18 04:38 Urine Creatinine 94.1 mg/dL (0.1-20.0) H 04/10/18 09:42 Urine Sodium 16 mmol/L 04/10/18 09:42 Medications & Allergies - Medications Allergies/Adverse Reactions: Allergies No Known Allergies Allergy (Verified 02/28/17 12:30) Home Medications: Home Medications Medication Instructions Recorded Confirmed Last Taken Type Divalproex ER [Depakote ER] 500 mg PO HS 04/11/13 04/12/18 02/27/17 20:00 History Ranitidine HCl 150 mg PO DAILY 02/12/15 04/12/18 02/27/17 19:00 History RisperiDONE 1 mg PO DAILY 02/12/15 04/12/18 02/27/17 20:00 History Ascorbic Acid [Vitamin C] 500 mg PO DAILY 09/27/15 04/12/18 02/28/17 08:00 History Divalproex Sprinkle [Depakote 250 mg PO BID capsule 03/13/17 04/12/18 Unknown Rx Sprinkle] Multivitamin Tab [Multiple Vitamin 1 each PO DAILY tablet 03/13/17 04/12/18 Unknown Rx TAB (Theragran)] Docusate Sodium [Colace CAP] 100 mg PO BID MDD CONSTIPATION 04/09/18 04/12/18 Unknown History Warfarin [Coumadin] 5 mg PO HS 04/09/18 04/12/18 Unknown History Active Medications: Generic Name Dose Route Start Last Admin Trade Name Freq PRN Reason Stop Dose Admin Acetaminophen 650 mg 04/09/18 21:28 Tylenol PO Q4H PRN Pain MILD(1-3)/Fever >100.5/MICHELLE Divalproex Sodium 500 mg 04/10/18 22:00 04/12/18 21:32 Depakote Er PO 500 mg HS TALIB Administration Divalproex Sodium 250 mg 04/10/18 08:00 04/14/18 07:04 Depakote Sprinkle PO 250 mg BID@0800,1700 TALIB Administration Docusate Sodium 100 mg 04/10/18 10:00 04/14/18 09:04 Colace PO Not Given BID TALIB Famotidine 20 mg 04/14/18 10:00 04/14/18 09:02 Pepcid PO 20 mg BID TALIB Administration Hydromorphone HCl 0.5 mg 04/09/18 21:28 Dilaudid IV Q3H PRN Pain , Severe (7-10) Ceftriaxone Sodium 2 gm in 100 mls @ 200 mls/hr 04/10/18 10:00 04/14/18 09:02 Rocephin/Ns 2 Gm/100 Ml IV 200 mls/hr Q24HR TALIB Administration Protocol Vancomycin HCl 1 gm in 250 mls @ 166.667 mls/hr 04/12/18 18:00 04/14/18 07:04 Vancomycin/Ns 1 Gm/250 Ml IV 166.67 mls/hr Q12H TALIB Infusion Ondansetron HCl 4 mg 04/09/18 21:28 Zofran IV Q8H PRN Nausea And Vomiting Risperidone 1 mg 04/10/18 10:00 04/14/18 09:02 Risperdal PO 1 mg DAILY TALIB Administration Sodium Chloride 10 ml 04/09/18 22:00 04/14/18 09:04 Sodium Chloride Flush Syringe 10 Ml IV 10 ml BID TALIB Administration Sodium Chloride 10 ml 04/09/18 21:28 Sodium Chloride Flush Syringe 10 Ml IV PRN PRN LINE FLUSH
--- NOTE | 2018-04-14 14:03 | Consultation ---
History of Present Illness - Reason for Consult Consult date: 04/14/18 Bacteremia with REHABILITATION CONSTRUCTION SPECIALIST Requesting physician: KHURRAM AVENDAÑO - History of Present Illness This patient is a 68-year old male SNF resident with a past medical history of cerebral palsy with multiple contractures, seizure disorder presented to the ED on 04/10/18 with hypotension and fever. On admission, WBC 8.8, Creatine 0.9, Temperature 103.6, HR 89, BP 89/65, U/A was consistent with UTI. Chest xray shows no consolidation. Blood cultures were drawn and show Coag Negative Staph 2 out of 4 bottles.. Patient unable to provide history due to mental status. Past History Past Medical History: other (cerebral palsy) Medications and Allergies Allergies Allergy/AdvReac Type Severity Reaction Status Date / Time No Known Allergies Allergy Verified 02/28/17 12:30 Home Medications Medication Instructions Recorded Confirmed Last Taken Type Divalproex ER [Depakote ER] 500 mg PO HS 04/11/13 04/12/18 02/27/17 20:00 History Ranitidine HCl 150 mg PO DAILY 02/12/15 04/12/18 02/27/17 19:00 History RisperiDONE 1 mg PO DAILY 02/12/15 04/12/18 02/27/17 20:00 History Ascorbic Acid [Vitamin C] 500 mg PO DAILY 09/27/15 04/12/18 02/28/17 08:00 History Divalproex Sprinkle [Depakote 250 mg PO BID capsule 03/13/17 04/12/18 Unknown Rx Sprinkle] Multivitamin Tab [Multiple Vitamin 1 each PO DAILY tablet 03/13/17 04/12/18 Unknown Rx TAB (Theragran)] Docusate Sodium [Colace CAP] 100 mg PO BID MDD CONSTIPATION 04/09/18 04/12/18 Unknown History Warfarin [Coumadin] 5 mg PO HS 04/09/18 04/12/18 Unknown History Active Meds: Active Medications Acetaminophen (Tylenol) 650 mg PO Q4H PRN PRN Reason: Pain MILD(1-3)/Fever >100.5/MICHELLE Divalproex Sodium (Depakote Er) 500 mg PO HS [facility] Last Admin: 04/12/18 21:32 Dose: 500 mg Documented by: Divalproex Sodium (Depakote Sprinkle) 250 mg PO BID@0800,1700 [facility] Last Admin: 04/14/18 07:04 Dose: 250 mg Documented by: Docusate Sodium (Colace) 100 mg PO BID [facility] Last Admin: 04/14/18 09:04 Dose: Not Given Documented by: Famotidine (Pepcid) 20 mg PO BID [facility] Last Admin: 04/14/18 09:02 Dose: 20 mg Documented by: Hydromorphone HCl (Dilaudid) 0.5 mg IV Q3H PRN PRN Reason: Pain , Severe (7-10) Ceftriaxone Sodium (Rocephin/Ns 2 Gm/100 Ml) 2 gm in 100 mls @ 200 mls/hr IV Q24HR [facility]; Protocol Last Infusion: 04/14/18 09:32 Dose: Infused Documented by: Vancomycin HCl (Vancomycin/Ns 1 Gm/250 Ml) 1 gm in 250 mls @ 166.667 mls/hr IV Q12H [facility] Last Infusion: 04/14/18 07:04 Dose: 166.67 mls/hr Documented by: Ondansetron HCl (Zofran) 4 mg IV Q8H PRN PRN Reason: Nausea And Vomiting Risperidone (Risperdal) 1 mg PO DAILY [facility] Last Admin: 04/14/18 09:02 Dose: 1 mg Documented by: Sodium Chloride (Sodium Chloride Flush Syringe 10 Ml) 10 ml IV BID [facility] Last Admin: 04/14/18 09:04 Dose: 10 ml Documented by: Sodium Chloride (Sodium Chloride Flush Syringe 10 Ml) 10 ml IV PRN PRN PRN Reason: LINE FLUSH Review of Systems ROS unobtainable: due to mental status Physical Examination - Physical Exam Narrative exam: Constitutional: Eyes open to voice, cachexia. Head, Ears, Nose: Normocephalic, atraumatic. External ears, nose normal Eyes: Conjunctivae/corneas clear. No icterus. No ptosis. Neck: Supple, no meningeal signs Oral: unable to assess. Cardiovascular: S1, S2 normal. Respiratory: Good air entry, clear to auscultation bilaterally GI: Soft, non-tender; bowel sounds normal. No CVA tenderness Musculoskeletal: Cerebral Palsy contractures Skin: Right hip stage 3 ulcer, Sacral superficial excoriation Hem/Lymphatic: exam limited Psych: Exam limited Neurological: Awake, alert - Constitutional Vitals: Vital Signs Temp Pulse Resp BP Pulse Ox 98.3 F 67 20 88/44 99 04/14/18 13:44 04/14/18 13:44 04/14/18 13:44 04/14/18 13:44 04/14/18 13:44 Temperature -Last 24 Hours Temperature 98.3 F Temperature 98.8 F Temperature 98.6 F Temperature 98.6 F Results - Labs CBC & Chem 7: 04/14/18 04:38 04/14/18 04:38 Labs: Abnormal lab results 04/14/18 04/14/18 04/14/18 Range/Units 04:38 04:38 04:38 MCV 95 H (84-94) fl Plt Count 78 L (140-440) K/mm3 Lymphocytes % (Manual) 36.0 H (13.4-35.0) % Eosinophils % (Manual) 13.0 H (0.0-4.3) % Eosinophils # (Manual) 0.8 H (0.0-0.4) K/mm3 PT 36.5 H (12.2-14.9) Sec. INR 3.64 H (0.87-1.13) Chloride 110.7 H (98-107) mmol/L BUN 7 L (9-20) mg/dL Creatinine 0.3 L (0.8-1.5) mg/dL Calcium 8.1 L (8.4-10.2) mg/dL Assessment and Plan Imaging 04/09/2018 Chest : Lungs clear, no consolidation. Cultures 04/09/2018 Blood: REHABILITATION CONSTRUCTION SPECIALIST 2 out of 4 bottles 04/09/2018 Urine: less than 10,000 Cfu/ml 04/12/2018 Blood: no growth thus far A/P: 68-year-old male SNF resident with a past medical history of cerebral palsy with multiple constractures, seizure disorder, admitted with: 1. Sepsis on Admission- evidenced by temperature, hypotension and tachycardia. Etiology likely urinary tract infection, Blood cultures positive for REHABILITATION CONSTRUCTION SPECIALIST, 2 out of 4 bottles. Chest xray show no consolidation. Currently being treated with Ceftriaxone and vancomycin. 2. Urinary Tract Infection- U/A positive for UTI. Urine culture less than 10,000 Cfu/ml. 3. Coag Negative Staph Bacteremia: Cultures grew 2 out of 4 bottles, likely contanminent, no evidence of prosthetic or implant device. 4. Eosinophilia- monitor closely 5. Acute Encephalopathy - secondary to UTI with underlying Cerebral Palsy- Unsure of baseline Plan -Discontinue ceftriaxone and vancomycin -Start Keflex 500 mg, PO q 8H for 3 days ending 04/16/18 -f/u blood cultures d/w [facility] M: [phone] O:[phone]
[2018-04-14] MEDS ORDERED: KEFLEX PO SCH (15:00)
[2018-04-14] MEDS ORDERED: NACL 0.9% 500 ML 500 ML IV ONE (16:33)
[2018-04-14] MEDS: KEFLEX PO SCH (16:36)
[2018-04-14] MEDS ORDERED: COUMADIN NO DOSE TODAY PO ONE (17:00)
[2018-04-15] MEDS: KEFLEX PO SCH ×3 (00:15→17:39)
[2018-04-15 05:24] LABS: Hematocrit 31.8 % (35.5-45.6); Hemoglobin 10.5 gm/dl (11.8-15.2); Mean Corpuscular HGB Conc 33 % (32-34); Mean Corpuscular Volume 95 fl (84-94); Platelet Count 124 K/mm3 (140-440); Red Blood Count 3.35 M/mm3 (3.65-5.03); Red Cell Distribution Width 14.7 % (13.2-15.2)
[2018-04-15 05:36] LABS: INR 2.53 (0.87-1.13)
[2018-04-15 05:40] LABS: BUN/Creatinine Ratio 35; Blood Urea Nitrogen 7 mg/dL (9-20); Calcium 7.8 mg/dL (8.4-10.2); Hemolysis Index 48
[2018-04-15 06:47] LABS: Anisocytosis 1+; Basophils % (Manual) 0 % (0.0-1.8); Macrocytosis Few; Total Cells Counted 100
[2018-04-15 06:48] LABS: Ovalocytes 1+; Platelet Estimate Consistent w Auto; Poikilocytosis 1+
--- NOTE | 2018-04-15 08:37 | Progress Note ---
Assessment and Plan Imaging 04/09/2018 Chest : Lungs clear, no consolidation. Cultures 04/09/2018 Blood: PRODUCT TESTER 2 out of 4 bottles 04/09/2018 Urine: less than 10,000 Cfu/ml 04/12/2018 Blood: PRODUCT TESTER 1 out of 4 bottles A/P: 68-year-old male SNF resident with a past medical history of cerebral palsy with multiple contractures, seizure disorder, admitted with: 1. Sepsis on Admission- Improved, evidenced by temperature, hypotension and tachycardia. Etiology likely urinary tract infection, Blood cultures positive for PRODUCT TESTER, 2 out of 4 bottles. Chest xray show no consolidation. Currently being treated with Ceftriaxone and vancomycin. 2. Urinary Tract Infection- U/A positive for UTI. Urine culture less than 10,000 Cfu/ml. 3. Coag Negative Staph Bacteremia: Cultures grew 2 out of 4 bottles, likely contanminent, no evidence of prosthetic or implant device. 4. Eosinophilia- monitor closely 5. Acute Encephalopathy - secondary to UTI with underlying Cerebral Palsy- Unsure of baseline 6. Right Hip Stage 3 Ulcer-continue wound care Plan -Continue Keflex 500 mg, PO q 8H for 3 days ending 04/16/18 -f/u blood cultures -continue wound care -order blood cultures to ensure clearance Tere Kay NP [facility] M: [phone] O:[phone] Subjective Date of service: 04/15/18 Principal diagnosis: hypernatremia Interval history: Patient seen and examined. Opens eyes but nonverbal at baseline. No family at bedside. No acute distress observed Objective - Exam Narrative Exam: Constitutional: Eyes open to voice, cachexia. Head, Ears, Nose: Normocephalic, atraumatic. External ears, nose normal Eyes: Conjunctivae/corneas clear. No icterus. No ptosis. Neck: Supple, no meningeal signs Oral: unable to assess. Cardiovascular: S1, S2 normal. Respiratory: Good air entry, clear to auscultation bilaterally GI: Soft, non-tender; bowel sounds normal. No CVA tenderness Musculoskeletal: Cerebral Palsy contractures Skin: Right hip stage 3 ulcer, Sacral superficial excoriation Hem/Lymphatic: exam limited Psych: Exam limited Neurological: Awake, alert - Constitutional Vitals: Vital Signs Temp Pulse Resp BP Pulse Ox 98.3 F 96 H 18 86/58 96 04/15/18 07:17 04/15/18 07:17 04/15/18 07:17 04/15/18 07:17 04/15/18 07:58 Temperature -Last 24 Hours Temperature 98.3 F Temperature 99.1 F Temperature 99.3 F Temperature 98.3 F - Labs CBC & Chem 7: 04/15/18 05:05 04/15/18 05:05 Labs: Abnormal lab results 04/15/18 04/15/18 04/15/18 Range/Units 05:05 05:05 05:05 RBC 3.35 L (3.65-5.03) M/mm3 Hgb 10.5 L (11.8-15.2) gm/dl Hct 31.8 L (35.5-45.6) % MCV 95 H (84-94) fl Plt Count 124 L (140-440) K/mm3 Eosinophils % (Manual) 14.0 H (0.0-4.3) % Eosinophils # (Manual) 0.9 H (0.0-0.4) K/mm3 PT 27.6 H (12.2-14.9) Sec. INR 2.53 H (0.87-1.13) Chloride 109.0 H (98-107) mmol/L BUN 7 L (9-20) mg/dL Creatinine 0.2 L (0.8-1.5) mg/dL Calcium 7.8 L (8.4-10.2) mg/dL
[2018-04-15] MEDS: PEPCID PO SCH ×2 (09:23→21:40)
[2018-04-15] MEDS: COLACE PO SCH ×2 (09:23→21:39)
[2018-04-15] MEDS: RisperDAL PO SCH (09:24)
[2018-04-15] MEDS: SODIUM CHLORIDE FLUSH SYRINGE 10 ML IV SCH ×2 (09:24→21:40)
--- NOTE | 2018-04-15 10:48 | Progress Note ---
Assessment and Plan Hypernatremia, secondary to low oral intake hypotension, possibly secondary to volume depletion cerebral palsy - resolved - can bolus with NS as needed for low BP - strict I&O - daily weight will sign off, please re consult if needed Subjective Date of service: 04/15/18 Principal diagnosis: hypernatremia Interval history: follows simple commands, no family at bedside Objective - Vital Signs Vital signs: Vital Signs - 12hr 04/15/18 04/15/18 04/15/18 01:17 07:17 07:58 Temperature 99.1 F 98.3 F Pulse Rate 61 96 H Pulse Rate [ From Monitor] Respiratory 16 18 Rate Blood Pressure 77/46 86/58 O2 Sat by Pulse 95 96 96 Oximetry 04/15/18 08:35 Temperature Pulse Rate Pulse Rate [ 96 H From Monitor] Respiratory 18 Rate Blood Pressure O2 Sat by Pulse Oximetry - General Appearance General appearance: cachectic EENT: ATNC, PERRL Neck: no JVD, no carotid bruit Respiratory: Present: Clear to Ascultation. Absent: Rales, Ronchi, Wheezes Cardiology: regular, S1S2 Gastrointestinal: normoactive bowel sounds Integumentary: no rash, warm and dry Musculoskeletal: deferred Psychiatric: other (follows simple commands) - Lab 04/15/18 05:05 04/15/18 05:05 Most recent lab results Calcium 7.8 mg/dL (8.4-10.2) L 04/15/18 05:05 Urine Creatinine 94.1 mg/dL (0.1-20.0) H 04/10/18 09:42 Urine Sodium 16 mmol/L 04/10/18 09:42 Medications & Allergies - Medications Allergies/Adverse Reactions: Allergies No Known Allergies Allergy (Verified 02/28/17 12:30) Home Medications: Home Medications Medication Instructions Recorded Confirmed Last Taken Type Divalproex ER [Depakote ER] 500 mg PO HS 04/11/13 04/12/18 02/27/17 20:00 History Ranitidine HCl 150 mg PO DAILY 02/12/15 04/12/18 02/27/17 19:00 History RisperiDONE 1 mg PO DAILY 02/12/15 04/12/18 02/27/17 20:00 History Ascorbic Acid [Vitamin C] 500 mg PO DAILY 09/27/15 04/12/18 02/28/17 08:00 History Divalproex Sprinkle [Depakote 250 mg PO BID capsule 03/13/17 04/12/18 Unknown Rx Sprinkle] Multivitamin Tab [Multiple Vitamin 1 each PO DAILY tablet 03/13/17 04/12/18 Unknown Rx TAB (Theragran)] Docusate Sodium [Colace CAP] 100 mg PO BID MDD CONSTIPATION 04/09/18 04/12/18 Unknown History Warfarin [Coumadin] 5 mg PO HS 04/09/18 04/12/18 Unknown History Active Medications: Generic Name Dose Route Start Last Admin Trade Name Freq PRN Reason Stop Dose Admin Acetaminophen 650 mg 04/09/18 21:28 Tylenol PO Q4H PRN Pain MILD(1-3)/Fever >100.5/MICHELLE Cephalexin 500 mg 04/14/18 17:00 04/15/18 09:23 Keflex PO 04/17/18 16:59 500 mg Q8H TALIB Administration Divalproex Sodium 500 mg 04/10/18 22:00 04/14/18 22:02 Depakote Er PO 500 mg HS TALIB Administration Divalproex Sodium 250 mg 04/10/18 08:00 04/15/18 08:45 Depakote Sprinkle PO 250 mg BID@0800,1700 TALIB Administration Docusate Sodium 100 mg 04/10/18 10:00 04/15/18 09:23 Colace PO 100 mg BID TALIB Administration Famotidine 20 mg 04/14/18 10:00 04/15/18 09:23 Pepcid PO 20 mg BID TALIB Administration Hydromorphone HCl 0.5 mg 04/09/18 21:28 Dilaudid IV Q3H PRN Pain , Severe (7-10) Ondansetron HCl 4 mg 04/09/18 21:28 Zofran IV Q8H PRN Nausea And Vomiting Risperidone 1 mg 04/10/18 10:00 04/15/18 09:24 Risperdal PO 1 mg DAILY TALIB Administration Sodium Chloride 10 ml 04/09/18 22:00 04/15/18 09:24 Sodium Chloride Flush Syringe 10 Ml IV 10 ml BID TALIB Administration Sodium Chloride 10 ml 04/09/18 21:28 Sodium Chloride Flush Syringe 10 Ml IV PRN PRN LINE FLUSH Warfarin Sodium 2.5 mg 04/15/18 17:00 Coumadin PO DAILY@1700 TALIB
--- NOTE | 2018-04-15 13:37 | Progress Note ---
Assessment and Plan Assessment and plan: Assessment and plan: 68-year-old male with hx of Cerebral Palsy and multiple contracture, seizure disorder and a [facility] resident presenting to the ED with hypotension and fever. Patient was diagnosed with sepsis secondary to UTI and also Hypernatremia. he was started on free watcher flushes with some noted improvement. Blood cultures growing Coag neg staph therefore ID consulted . ID recommends keflex to complete 04/17/18. Today he is hypotensive. give more iv fluids. Septic Shock Acute Cystitis Toxic Metabolic Encephalopathy likely secondary to Cystitis with underlying Cerebral Palsy- Unsure of baseline Severe Hypernatremia, now resolved Cerebral palsy Seizure Disorder Hypokalemia Severe protein Calorie Malnutrition Thrombocytopenia Dehydration-hypotensive Multiple Pressure Ulcers-present on admission Bacteremia with coagulase negative staph Plan Continue supportive care Continue Abx. Started on Keflex, to complete 04/17/18 Replaced potassium Start NS for hypotension tolerating PO therefore Dobhoff removed Cultures reviewed ?CONTAMINANT Consulted ID Fall precautions DVT prophylaxis - On Coumadin Disposition: To dc to SNF when BP stable. History Interval history: No more fever BP low Hospitalist Physical - Physical exam Narrative exam: GENERAL: Ill looking, not in acute distress. malnourished HEAD: No signs of head trauma. EYES: Pupils are equal. Extraocular motions appear dry with crusting noted intact. EARS: Hearing grossly intact. MOUTH: Oropharynx is normal. NECK: No adenopathy, no JVD. CHEST: Clear to auscultation bilaterally, no wheezes, rales, or rhonchi. CARDIAC: Regular rate and rhythm. S1 and S2, without murmurs, gallops, or rubs. VASCULAR: No Edema. Peripheral pulses normal and equal in all extremities. ABDOMEN: Soft, non tender, no distension, ness. No sign of distention. No rebound or guarding, and no masses palpated. Bowel Sounds normal. : Present indwelling Hogan catheter MUSCULOSKELETAL: Good range of motion of all major joints. Extremities without clubbing, cyanosis or edema. NEUROLOGIC EXAM: Alert PSYCHIATRIC: Cannot evaluate. SKIN: Multiple pressure ulcers ,Maculopapular rash generalized and ALSO upper extremities the lower extremities. - Constitutional Vitals: Temp Pulse Resp BP Pulse Ox 98.3 F 96 H 18 86/58 96 04/15/18 07:17 04/15/18 10:00 04/15/18 10:00 04/15/18 07:17 04/15/18 07:58 General appearance: Present: no acute distress Results - Labs CBC & Chem 7: 04/15/18 05:05 04/15/18 05:05 Labs: Laboratory Last Values WBC 6.4 K/mm3 (4.5-11.0) 04/15/18 05:05 RBC 3.35 M/mm3 (3.65-5.03) L 04/15/18 05:05 Hgb 10.5 gm/dl (11.8-15.2) L 04/15/18 05:05 Hct 31.8 % (35.5-45.6) L 04/15/18 05:05 MCV 95 fl (84-94) H 04/15/18 05:05 MCH 31 pg (28-32) 04/15/18 05:05 MCHC 33 % (32-34) 04/15/18 05:05 RDW 14.7 % (13.2-15.2) 04/15/18 05:05 Plt Count 124 K/mm3 (140-440) L 04/15/18 05:05 Lymph % (Auto) TNR 04/11/18 06:33 [place] % (Auto) TNR 04/11/18 06:33 Eos % (Auto) Rail Filler 04/15/18 05:05 Baso % (Auto) TNR 04/11/18 06:33 Lymph # TNR 04/11/18 06:33 [place] # TNR 04/11/18 06:33 Eos # TNR 04/11/18 06:33 Baso # TNR 04/11/18 06:33 Add Manual Diff Complete 04/15/18 05:05 Total Counted 100 04/15/18 05:05 Seg Neutrophils % TNR 04/11/18 06:33 Seg Neuts % (Manual) 47.0 % (40.0-70.0) 04/15/18 05:05 Band Neutrophils % 0 % 04/15/18 05:05 Lymphocytes % (Manual) 35.0 % (13.4-35.0) 04/15/18 05:05 Reactive Lymphs % (Man) 0 % 04/15/18 05:05 Monocytes % (Manual) 4.0 % (0.0-7.3) 04/15/18 05:05 Eosinophils % (Manual) 14.0 % (0.0-4.3) H 04/15/18 05:05 Basophils % (Manual) 0 % (0.0-1.8) 04/15/18 05:05 Metamyelocytes % 0 % 04/15/18 05:05 Myelocytes % 0 % 04/15/18 05:05 Promyelocytes % 0 % 04/15/18 05:05 Blast Cells % 0 % 04/15/18 05:05 Nucleated RBC % Not Reportable 04/15/18 05:05 Seg Neutrophils # TNR 04/11/18 06:33 Seg Neutrophils # Man 3.0 K/mm3 (1.8-7.7) 04/15/18 05:05 Band Neutrophils # 0.0 K/mm3 04/15/18 05:05 Lymphocytes # (Manual) 2.2 K/mm3 (1.2-5.4) 04/15/18 05:05 Abs React Lymphs (Man) 0.0 K/mm3 04/15/18 05:05 Monocytes # (Manual) 0.3 K/mm3 (0.0-0.8) 04/15/18 05:05 Eosinophils # (Manual) 0.9 K/mm3 (0.0-0.4) H 04/15/18 05:05 Basophils # (Manual) 0.0 K/mm3 (0.0-0.1) 04/15/18 05:05 Metamyelocytes # 0.0 K/mm3 04/15/18 05:05 Myelocytes # 0.0 K/mm3 04/15/18 05:05 Promyelocytes # 0.0 K/mm3 04/15/18 05:05 Blast Cells # 0.0 K/mm3 04/15/18 05:05 WBC Morphology Not Reportable 04/15/18 05:05 Hypersegmented Neuts Not Reportable 04/15/18 05:05 Hyposegmented Neuts Not Reportable 04/15/18 05:05 Hypogranular Neuts Not Reportable 04/15/18 05:05 Smudge Cells Not Reportable 04/15/18 05:05 Toxic Granulation Not Reportable 04/15/18 05:05 Toxic Vacuolation Not Reportable 04/15/18 05:05 Dohle Bodies Not Reportable 04/15/18 05:05 Pelger-Huet Anomaly Not Reportable 04/15/18 05:05 Ronak Rods Not Reportable 04/15/18 05:05 Platelet Estimate Consistent w auto 04/15/18 05:05 Clumped Platelets Not Reportable 04/15/18 05:05 Plt Clumps, EDTA Not Reportable 04/15/18 05:05 Large Platelets Not Reportable 04/15/18 05:05 Giant Platelets Not Reportable 04/15/18 05:05 Platelet Satelliting Not Reportable 04/15/18 05:05 Plt Morphology Comment Not Reportable 04/15/18 05:05 RBC Morphology Not Reportable 04/15/18 05:05 Dimorphic RBCs Not Reportable 04/15/18 05:05 Polychromasia Not Reportable 04/15/18 05:05 Hypochromasia Not Reportable 04/15/18 05:05 Poikilocytosis 1+ 04/15/18 05:05 Anisocytosis 1+ 04/15/18 05:05 Microcytosis Not Reportable 04/15/18 05:05 Macrocytosis Few 04/15/18 05:05 Spherocytes Not Reportable 04/15/18 05:05 Pappenheimer Bodies Not Reportable 04/15/18 05:05 Sickle Cells Not Reportable 04/15/18 05:05 Target Cells Not Reportable 04/15/18 05:05 Tear Drop Cells Not Reportable 04/15/18 05:05 Ovalocytes 1+ 04/15/18 05:05 Helmet Cells Not Reportable 04/15/18 05:05 Jacques-Bogue Bodies Not Reportable 04/15/18 05:05 Stanton Rings Not Reportable 04/15/18 05:05 Almas Cells Not Reportable 04/15/18 05:05 Bite Cells Not Reportable 04/15/18 05:05 Crenated Cell Not Reportable 04/15/18 05:05 Elliptocytes Few 04/15/18 05:05 Acanthocytes (Spur) Not Reportable 04/15/18 05:05 Rouleaux Not Reportable 04/15/18 05:05 Hemoglobin C Crystals Not Reportable 04/15/18 05:05 Schistocytes Not Reportable 04/15/18 05:05 Malaria parasites Not Reportable 04/15/18 05:05 Meir Bodies Not Reportable 04/15/18 05:05 Hem Pathologist Commnt No 04/15/18 05:05 PT 27.6 Sec. (12.2-14.9) H 04/15/18 05:05 INR 2.53 (0.87-1.13) H 04/15/18 05:05 VBG pH 7.420 (7.320-7.420) 04/09/18 09:40 Sodium 141 mmol/L (137-145) 04/15/18 05:05 Potassium 4.3 mmol/L (3.6-5.0) 04/15/18 05:05 Chloride 109.0 mmol/L (98-107) H 04/15/18 05:05 Carbon Dioxide 26 mmol/L (22-30) 04/15/18 05:05 Anion Gap 10 mmol/L 04/15/18 05:05 BUN 7 mg/dL (9-20) L 04/15/18 05:05 Creatinine 0.2 mg/dL (0.8-1.5) L 04/15/18 05:05 Estimated GFR > 60 ml/min 04/15/18 05:05 BUN/Creatinine Ratio 35 % 04/15/18 05:05 Glucose 100 mg/dL (75-100) 04/15/18 05:05 Hemoglobin A1c 5.8 % (4-6) 04/09/18 21:36 Lactic Acid 1.00 mmol/L (0.7-2.0) 04/09/18 12:37 Calcium 7.8 mg/dL (8.4-10.2) L 04/15/18 05:05 Total Bilirubin 0.40 mg/dL (0.1-1.2) 04/10/18 02:43 AST 26 units/L (5-40) 04/10/18 02:43 ALT 16 units/L (7-56) 04/10/18 02:43 Alkaline Phosphatase 25 units/L (35-129) L 04/10/18 02:43 Total Protein 5.7 g/dL (6.3-8.2) L D 04/10/18 02:43 Albumin 2.7 g/dL (3.9-5) L 04/10/18 02:43 Albumin/Globulin Ratio 0.9 % 04/10/18 02:43 Urine Color Yellow (Yellow) 04/09/18 14:27 Urine Turbidity Clear (Clear) 04/09/18 14:27 Urine pH 5.0 (5.0-7.0) 04/09/18 14:27 Ur Specific [place] 1.029 (1.003-1.030) 04/09/18 14:27 Urine Protein 100 mg/dl mg/dL (Negative) 04/09/18 14:27 Urine Glucose (UA) Neg mg/dL (Negative) 04/09/18 14:27 Urine Ketones Tr mg/dL (Negative) 04/09/18 14:27 Urine Blood Lg (Negative) 04/09/18 14:27 Urine Nitrite Neg (Negative) 04/09/18 14:27 Urine Bilirubin Neg (Negative) 04/09/18 14:27 Urine Urobilinogen < 2.0 mg/dL (<2.0) 04/09/18 14:27 Ur Leukocyte Esterase Mod (Negative) 04/09/18 14:27 Urine WBC (Auto) 180.0 /HPF (0.0-6.0) H 04/09/18 14:27 Urine RBC (Auto) 24.0 /HPF (0.0-6.0) 04/09/18 14:27 Urine Mucus Few /HPF 04/09/18 14:27 Urine Osmolality 892 Mosm/kg 04/10/18 09:42 Urine Creatinine 94.1 mg/dL (0.1-20.0) H 04/10/18 09:42 Urine Sodium 16 mmol/L 04/10/18 09:42 Vancomycin Trough 5.6 ug/mL (5.0-20.0) 04/15/18 05:05 Nutrition/Malnutrition Assess - Dietary Evaluation Nutrition/Malnutrition Findings: Nutrition Notes Start: 04/10/18 13:09 Freq: Status: Active Protocol: Document 04/12/18 14:25 [facility] (Rec: 04/12/18 14:30 ANA PAULA SRW- [id number]) Nutrition Notes Initial or Follow up Reassessment Other Pertinent Diagnosis Acute cystitis, CP, Dehydration, multiple pressure ulcers Current Diet Pureed with honey-thick liquids Labs/Tests Na 147 Medications Reviewed Height 5 ft 6 in Weight 65.77 kg [place] Body Weight (lbs) 142.0 BMI 23.3 Subjective/Other Information DHT remains in place for water flushes (300ml q4h). Pt tolerating PO intake and is consuming 100% of meals, per RN report. Percent of energy/protein needs met: 100% energy 93% pro Burn Absent Trauma Absent #1 Nutrition Diagnoses Inadequate oral intake As Evidenced by Signs and Symptoms pt consuming 100% of meals Diagnosis Progress(for reassessment Resolved documentation) Is patient on ventilator? No Is Patient Ambulatory and/or Out of Bed No REE-([place]-. Jeor-confined to bed) 1482.084 Calculation [facility]ations [facility] Additional Notes Pro needs 1.25-1.5g/k-99g /day Fluid needs 1ml/kcal Nutrition Intervention Change Diet Order: Continue current diet order Goal #1 PO intakes to meet 90-100% energy and pro needs Follow-Up By: 04/17/18 Additional Comments F/U: stable intakes, wt, Na lab
[2018-04-15] MEDS ORDERED: NACL 0.9% 1000 ML 1,000 ML IV SCH (14:00)
[2018-04-15] MEDS ORDERED: COUMADIN PO SCH (17:00)
[2018-04-16] MEDS: COLACE PO SCH ×2 (01:07→10:10)
[2018-04-16] MEDS: KEFLEX PO SCH ×2 (01:15→08:50)
[2018-04-16 05:27] LABS: Basophils # (Auto) 0.1 K/mm3 (0.0-0.1); Basophils % (Auto) 0.9 % (0.0-1.8); Eosinophils # (Auto) 0.9 K/mm3 (0.0-0.4); Eosinophils % (Auto) 13.5 % (0.0-4.3); Hematocrit 33.6 % (35.5-45.6); Lymphocytes # (Auto) 1.6 K/mm3 (1.2-5.4); Lymphocytes % (Auto) 24.7 % (13.4-35.0); Mean Corpuscular HGB Conc 33 % (32-34); Mean Corpuscular Volume 95 fl (84-94); Monocytes # (Auto) 0.5 K/mm3 (0.0-0.8); Monocytes % (Auto) 7.7 % (0.0-7.3); Red Blood Count 3.55 M/mm3 (3.65-5.03); Red Cell Distribution Width 14.3 % (13.2-15.2)
[2018-04-16 05:30] LABS: Platelet Count 141 K/mm3 (140-440)
[2018-04-16 05:36] LABS: INR 1.77 (0.87-1.13)
[2018-04-16 05:55] LABS: BUN/Creatinine Ratio 40; Blood Urea Nitrogen 8 mg/dL (9-20); Calcium 7.7 mg/dL (8.4-10.2); Hemolysis Index 19
[2018-04-16 08:00] VITALS: BP 96/53
--- NOTE | 2018-04-16 08:17 | Progress Note ---
Assessment and Plan Imaging 04/09/2018 Chest : Lungs clear, no consolidation. Cultures 04/09/2018 Blood: VOCATIONAL ED INSTRUCTOR 2 out of 4 bottles 04/09/2018 Urine: less than 10,000 Cfu/ml 04/12/2018 Blood: VOCATIONAL ED INSTRUCTOR 1 out of 4 bottles 04/15/2018 Blood: pending A/P: 68-year-old male SNF resident with a past medical history of cerebral palsy with multiple contractures, seizure disorder, admitted with: 1. Sepsis on Admission- Improved, hypotension continuing. Etiology likely urinary tract infection, Blood cultures positive for VOCATIONAL ED INSTRUCTOR, 2 out of 4 bottles. Chest xray show no consolidation. Currently being treated with Ceftriaxone and vancomycin. 2. Urinary Tract Infection- U/A positive for UTI. Urine culture less than 10,000 Cfu/ml. 3. Coag Negative Staph Bacteremia: Cultures grew 2 out of 4 bottles, likely contanminent, no evidence of prosthetic or implant device. 4. Eosinophilia- monitor closely 5. Acute Encephalopathy - secondary to UTI with underlying Cerebral Palsy- Unsure of baseline 6. Right Hip Stage 3 Ulcer-continue wound care Plan -Continue Keflex 500 mg, PO q 8H for 3 days, last dose today -f/u blood cultures -continue wound care Ok to discharge from ID stand point Tere Kay NP [facility] M: [phone] O:[phone] Subjective Date of service: 04/16/18 Principal diagnosis: hypernatremia Interval history: Patient seen and examined. Opens eyes and smiles. nonverbal at baseline. Brother at bedside No acute distress observed. Nurses notes, labs and reports reviewed, discussed with family member. Objective - Exam Narrative Exam: Constitutional: Eyes open to voice, cachexia. Head, Ears, Nose: Normocephalic, atraumatic. External ears, nose normal Eyes: Conjunctivae/corneas clear. No icterus. No ptosis. Neck: Supple, no meningeal signs Oral: unable to assess. Cardiovascular: S1, S2 normal. Respiratory: Good air entry, clear to auscultation bilaterally GI: Soft, non-tender; bowel sounds normal. No CVA tenderness Musculoskeletal: Cerebral Palsy contractures Skin: Right hip stage 3 ulcer, Sacral superficial excoriation Hem/Lymphatic: exam limited Psych: Mood: good, brother at bedside Neurological: Awake, alert - Constitutional Vitals: Vital Signs Temp Pulse Resp BP Pulse Ox 97.7 F 61 18 96/53 98 04/16/18 07:05 04/16/18 07:05 04/16/18 07:05 04/16/18 07:05 04/16/18 07:16 Temperature -Last 24 Hours Temperature 97.7 F Temperature 97.8 F Temperature 98.5 F Temperature 98.2 F - Labs CBC & Chem 7: 04/16/18 05:00 04/16/18 05:00 Labs: Abnormal lab results 04/16/18 04/16/18 04/16/18 Range/Units 05:00 05:00 05:00 RBC 3.55 L (3.65-5.03) M/mm3 Hgb 11.0 L (11.8-15.2) gm/dl Hct 33.6 L (35.5-45.6) % MCV 95 H (84-94) fl [place] % (Auto) 7.7 H (0.0-7.3) % Eos % (Auto) 13.5 H (0.0-4.3) % Eos # 0.9 H (0.0-0.4) K/mm3 PT 21.0 H (12.2-14.9) Sec. INR 1.77 H (0.87-1.13) BUN 8 L (9-20) mg/dL Creatinine 0.2 L (0.8-1.5) mg/dL Calcium 7.7 L (8.4-10.2) mg/dL
--- NOTE | 2018-04-16 08:38 | Discharge Summary ---
Providers - Providers Date of Admission: 04/09/18 12:56 Attending physician: SAMIRA HALE MD 04/09/18 Consult to Case Management [CONS] Routine Services Needed at Discharge: Home Health Services Notified:: DARRIUS 04/10/18 00:35 Consult to Dietitian/Nutrition [CONS] Routine Physician Instructions: Reason For Exam: Reason for Consult: Pt needs oral supplement 04/10/18 00:47 Consult to Wound/ET Nurse [CONS] Routine Reason For Exam: wound eval 04/10/18 08:41 Consult to Physician [CONS] Routine Comment: HUE Consulting Provider: ANGELLA SHEPARD Physician Instructions: CONSULT WAS CALLED TO Reason For Exam: hypernatremia 04/14/18 09:26 Consult to Physician [CONS] Routine Comment: CALLED ANSW. SERV./ KAIN Consulting Provider: ELSA CRAMER Physician Instructions: Reason For Exam: Bacteremia with Coagulase neg staph Primary care physician: RIB SAWYER Hospitalization Reason for admission: SEPSIS Condition: Stable Hospital course: 68-year-old male with hx of Cerebral Palsy and multiple contracture, seizure disorder and a [facility] resident presenting to the ED with hypotension and fever. Patient was diagnosed with sepsis secondary to UTI and also Hypernatremia. he was started on free watcher flushes with some noted improvement. Blood cultures growing Coag neg staph therefore ID consulted . ID recommends keflex to complete 04/17/18. Patient was treted with IV fluids and also antibiotics for acute cystitis with good resolution. His hypernatremia improved and he is now more to his baseline and tolerating diet. I did discussed with [place] in respect to his BP. A discussion with the [facility] facility should that he runs a rather low pressure but in the low 100s, 102-114 systolic. Patient is stable for discharge his BP while it has remained in the low 90s is variable. Patient can recieve intermitted IV fluids while at the facility. Septic Shock Acute Cystitis Toxic Metabolic Encephalopathy likely secondary to Cystitis with underlying Cerebral Palsy Severe Hypernatremia, now resolved Cerebral palsy Seizure Disorder Hypokalemia Severe protein Calorie Malnutrition Thrombocytopenia Dehydration-hypotensive Multiple Pressure Ulcers-Including right hip ulcer stage 3present on admission Bacteremia with coagulase negative staph Disposition: DC/[place]-03 SNF [facility] CERT Time spent for discharge: 35 mins Core Measure Documentation - Palliative Care Palliative Care/ Comfort Measures: Not Applicable - Core Measures Any of the following diagnoses?: none Exam - Physical Exam Narrative exam: VITAL SIGNS: Reviewed. GENERAL: The patient appeared chronically ill-appearing markedly cachectic with temporal wasting. Vital signs as documented. HEAD: No signs of head trauma. EYES: Pupils are equal. Extraocular motions intact EARS: Hearing grossly intact. MOUTH: Oropharynx is normal. NECK: No adenopathy, no JVD. CHEST: Chest with clear breath sounds bilaterally. No wheezes, rales, or rhonchi. CARDIAC: Regular rate and rhythm. S1 and S2, without murmurs, gallops, or rubs. VASCULAR: No Edema. Peripheral pulses normal and equal in all extremities. ABDOMEN: Soft, without detectable tenderness. No sign of distention. No rebound or guarding, and no masses palpated. Bowel Sounds normal. : Present indwelling Hogan catheter MUSCULOSKELETAL: Good range of motion of all major joints. Extremities without clubbing, cyanosis or edema. NEUROLOGIC EXAM: Alert and unable to assess orientation.. No focal sensory or strength deficits. PSYCHIATRIC: Unable to examine patient appears to follow some commands but true exam not clearly possible. SKIN: Multiple pressure ulcers including the right. Maculopapular rash generalized and ALSO upper extremities the lower extremities. - Constitutional Vitals: Temp Pulse Resp BP Pulse Ox 97.7 F 61 18 96/53 98 04/16/18 07:05 04/16/18 07:05 04/16/18 07:05 04/16/18 07:05 04/16/18 07:16 Plan Activity: advance as tolerated, fall precautions Diet: advance as tolerated Special Instructions: record daily weights, record daily BP diary Follow up with: PRIMARY CAREMD [Primary Care Provider] - 3-5 Days Forms: Warfarin Discharge Instruction
[2018-04-16] MEDS ORDERED: NACL 0.9% 1000 ML 2,000 ML IV ONE (09:00)
[2018-04-16] MEDS: PEPCID PO SCH (10:10)
[2018-04-16] MEDS: RisperDAL PO SCH (10:10)
[2018-04-16] MEDS: SODIUM CHLORIDE FLUSH SYRINGE 10 ML IV SCH (10:11)
== END 2018-04-16 13:01 | DRG 871 ==
LOC: ED 09:28 → 2B-ACE 12:56
PROVIDERS: ADMIT Internal Medicine; ATTEND Internal Medicine
DX: A41.9 Sepsis, unspecified organism (principal); L89.213 Pressure ulcer of right hip, stage 3; G92 Toxic encephalopathy; E43 Unspecified severe protein-calorie malnutrition; R65.21 Severe sepsis with septic shock; E87.0 Hyperosmolality and hypernatremia; N17.9 Acute kidney failure, unspecified; N30.00 Acute cystitis without hematuria; K94.23 Gastrostomy malfunction; E86.9 Volume depletion, unspecified; E86.0 Dehydration; D69.6 Thrombocytopenia, unspecified; D72.1 Eosinophilia; G80.9 Cerebral palsy, unspecified; Y83.8 Other surgical procedures as the cause of abnormal reaction of the patient, or of later complication, without mention of misadventure at the time of the procedure; Z66 Do not resuscitate; G40.909 Epilepsy, unspecified, not intractable, without status epilepticus; Z74.01 Bed confinement status; Z68.23 Body mass index [BMI] 23.0-23.9, adult; Z86.73 Personal history of transient ischemic attack (TIA), and cerebral infarction without residual deficits; Z86.718 Personal history of other venous thrombosis and embolism; Z79.01 Long term (current) use of anticoagulants; Y92.89 Other specified places as the place of occurrence of the external cause
CPT/HCPCS: 36415; 71045; 74018; 80048; 80053; 80202; 81001; 82140; 82570; 82805; 83036; 83935; 84295; 84300; 85007; 85025; 85610; 87040; 87086; 93005; 93010; 94760; 99291; 99292; G0378; J0696; J1650; J1885; J2543; J3370; J3480; J7030; J7040; J7050; J7070